=== PATIENT | female | born 1975 | race Hispanic/Latino ===

== ENCOUNTER 2016-12-15 00:23 | Emergency (ER) | payer MEDICAID ==
[2016-12-15 00:23] VITALS: BMI 23.3
[2016-12-15 00:36] VITALS: BP 137/87; PULSE 74; RESP 17; TEMP 98; O2SAT 98
--- NOTE | 2016-12-15 00:41 | ED PDOC ---
HPI: Psych/Substance Abuse Time Seen by Provider: 12/15/16 00:38 Chief Complaint (Nursing): Alcohol Ingestion Chief Complaint (Provider): etoh History Per: Patient, EMS Additional Complaint(s): Pt found outside sitting, pt admits to drinking tonight. Pt offers no complaints. Past Medical History Reviewed: Historical Data, Nursing Documentation, Vital Signs Vital Signs: Last Vital Signs Temp 98.0 F 12/15/16 00:33 Pulse 74 12/15/16 00:33 Resp 17 12/15/16 00:33 BP 137/87 12/15/16 00:33 Pulse Ox 98 12/15/16 00:33 - Medical History PMH: Anxiety, Asthma, Back Problems (herniated disc), Bipolar Disorder, COPD, Depression, Chronic Pain (Sciatica) Denies: Diabetes, Hepatitis, HIV, HTN, Chronic Kidney Disease, Seizures, Sexually Transmitted Disease - Family History Family History: States: No Known Family Hx - Social History Current smoker - smoking cessation education provided: Yes Alcohol: > 2 Drinks/Day Drugs: Denies - Immunization History Hx Tetanus Toxoid Vaccination: Yes (2 years ago as per patient) Hx Influenza Vaccination: Yes (05/2015) Hx Pneumococcal Vaccination: No - Home Medications Home Medications: Ambulatory Orders Medication Instructions Recorded Methylprednisolone [Medrol Dose 4 mg PO DAILY #21 mg 10/20/16 Pack (21 tabs)] Promethazine HCl/Codeine 5 ml PO HS #80 ml 10/20/16 [Prometh-Codein 6.25-10 mg/5 ml] - Allergies Allergies/Adverse Reactions: Allergies Allergy/AdvReac Type Severity Reaction Status Date / Time tramadol Allergy RASH Verified 10/20/16 16:47 Review of Systems ROS Statement: Except As Marked, All Systems Reviewed And Found Negative Physical Exam - Reviewed Nursing Documentation Reviewed: Yes Vital Signs Reviewed: Yes - Physical Exam Appears: Positive for: Non-toxic, No Acute Distress Head Exam: Positive for: ATRAUMATIC, NORMAL INSPECTION, NORMOCEPHALIC Skin: Positive for: Normal Color, Warm, DRY Eye Exam: Positive for: EOMI, Normal appearance, PERRL Neck: Positive for: Normal, Painless ROM Cardiovascular/Chest: Positive for: Regular Rate, Rhythm Respiratory: Positive for: CNT, Normal Breath Sounds Gastrointestinal/Abdominal: Positive for: Normal Exam, Bowel Sounds, Soft. Negative for: Tenderness Extremity: Positive for: Normal ROM. Negative for: Tenderness Neurologic/Psych: Positive for: Alert, Oriented - ECG O2 Sat by Pulse Oximetry: 98 Medical Decision Making Medical Decision Making: pt ambulatory steady gait. no signs of withdrawl. Disposition - Clinical Impression Clinical Impression: Alcohol abuse - Patient ED Disposition Is Patient to be Admitted: No - Disposition Referrals: [facility] [Outside] Disposition: Routine/Home Disposition Time: 05:18 Condition: GOOD Instructions: Alcohol Intoxication (ED)
== END 2016-12-15 06:05 | disposition home or self-care (01) ==
LOC: H.ER 00:23
DX: F10.10 Alcohol abuse, uncomplicated (principal); F17.200 Nicotine dependence, unspecified, uncomplicated; Z86.59 Personal history of other mental and behavioral disorders; J45.909 Unspecified asthma, uncomplicated

== ENCOUNTER 2016-12-17 22:27 | Observation (INO) | payer MEDICAID ==
[2016-12-17 22:27] VITALS: BMI 23.3
[2016-12-17 22:41] VITALS: BP 122/80; PULSE 83; RESP 16; TEMP 98.6; O2SAT 99
--- NOTE | 2016-12-17 22:47 | ED PDOC ---
Lower Extremity Pain/Injury Chief Complaint (Nursing): Alcohol Ingestion Chief Complaint (Provider): Right ankle pain History Per: Patient History/Exam Limitations: no limitations Onset/Duration Of Symptoms: Days Additional Complaint(s): Pt twisted ankle 3 days ago and was seen yesterday. Pt was diagnosed with ankle fx and splinted. PT states she was unable to walk with crutches so she has been walking on her splint. Pt states she has been taking motrin which has been helping the pain. Past Medical History Reviewed: Historical Data, Nursing Documentation, Vital Signs Vital Signs: Last Vital Signs Temp 98.6 F 12/17/16 22:29 Pulse 83 12/17/16 22:29 Resp 16 12/17/16 22:29 BP 122/80 12/17/16 22:29 Pulse Ox 99 12/17/16 22:29 - Medical History PMH: Anxiety, Asthma, Back Problems (herniated disc), Bipolar Disorder, COPD, Depression, Chronic Pain (Sciatica) Denies: Diabetes, Hepatitis, HIV, HTN, Chronic Kidney Disease, Seizures, Sexually Transmitted Disease - Surgical History Surgical History: No Surg Hx - Family History Family History: States: Unknown Family Hx - Living Arrangements Living Arrangements: With Family - Social History Current smoker - smoking cessation education provided: No - Immunization History Hx Tetanus Toxoid Vaccination: Yes (2 years ago as per patient) Hx Influenza Vaccination: Yes (05/2015) Hx Pneumococcal Vaccination: No - Home Medications Home Medications: Ambulatory Orders Medication Instructions Recorded Methylprednisolone [Medrol Dose 4 mg PO DAILY #21 mg 10/20/16 Pack (21 tabs)] Promethazine HCl/Codeine 5 ml PO HS #80 ml 10/20/16 [Prometh-Codein 6.25-10 mg/5 ml] Ibuprofen [Motrin Tab] 800 mg PO Q6H PRN #20 tab 12/16/16 - Allergies Allergies/Adverse Reactions: Allergies Allergy/AdvReac Type Severity Reaction Status Date / Time tramadol Allergy Intermediate RASH Verified 12/16/16 10:05 Review of Systems ROS Statement: Except As Marked, All Systems Reviewed And Found Negative Musculoskeletal: Positive for: Other Skin: Negative for: Bruising Physical Exam - Reviewed Nursing Documentation Reviewed: Yes Vital Signs Reviewed: Yes - Physical Exam Appears: Positive for: Well, Non-toxic, No Acute Distress Head Exam: Positive for: ATRAUMATIC, NORMAL INSPECTION, NORMOCEPHALIC Skin: Positive for: Normal Color, Warm, DRY Eye Exam: Positive for: Normal appearance ENT: Positive for: Normal ENT Inspection Neck: Positive for: Normal, Painless ROM Cardiovascular/Chest: Positive for: Regular Rate, Rhythm Respiratory: Positive for: Normal Breath Sounds. Negative for: Accessory Muscle Use, Respiratory Distress Back: Positive for: Normal Inspection Extremity: Positive for: Tenderness (Lateral malleolous ). Negative for: Normal ROM Neurologic/Psych: Positive for: Alert, Oriented - ECG O2 Sat by Pulse Oximetry: 99 Medical Decision Making Medical Decision Making: New splint placed. Pending sobriety. Disposition - Clinical Impression Clinical Impression: Alcohol abuse, Ankle fracture, right - Patient ED Disposition Is Patient to be Admitted: Transfer of Care - Disposition Disposition: Transfer of Care Disposition Time: 23:20 Condition: GOOD
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
== END 2016-12-18 07:31 | disposition home or self-care (01) ==
LOC: H.ER 22:27 → H.EROBSV 12-18 01:00
PROVIDERS: ADMIT Emergency Medicine; ATTEND Emergency Medicine
DX: F10.10 Alcohol abuse, uncomplicated (principal); S82.891D Other fracture of right lower leg, subsequent encounter for closed fracture with routine healing; X50.1XXD Overexertion from prolonged static or awkward postures, subsequent encounter; Z04.41 Encounter for examination and observation following alleged adult rape; G89.29 Other chronic pain; F31.9 Bipolar disorder, unspecified; J44.9 Chronic obstructive pulmonary disease, unspecified; J45.909 Unspecified asthma, uncomplicated; Z88.6 Allergy status to analgesic agent; F41.9 Anxiety disorder, unspecified

== ENCOUNTER 2016-12-18 17:34 | Emergency (ER) | payer MEDICAID ==
[2016-12-18 17:34] VITALS: BMI 23.3
[2016-12-18 17:40] VITALS: BP 140/76; PULSE 100; RESP 18; TEMP 98.9; O2SAT 99
== END 2016-12-18 19:30 | disposition left against medical advice (07) ==
LOC: H.ER 17:34
DX: Z02.89 Encounter for other administrative examinations (principal)

== ENCOUNTER 2016-12-21 18:32 | Emergency (ER) | payer MEDICAID ==
[2016-12-21 18:32] VITALS: BMI 23.3
[2016-12-21 18:45] VITALS: BP 110/74; PULSE 130; RESP 19; TEMP 98.4; O2SAT 98
--- NOTE | 2016-12-21 19:01 | ED PDOC ---
Lower Extremity Pain/Injury Time Seen by Provider: 12/21/16 18:52 Chief Complaint (Nursing): Lower Extremity Problem/Injury Chief Complaint (Provider): right ankle History Per: Patient History/Exam Limitations: no limitations Additional Complaint(s): 41yo F in ED for eval of right ankle pain-and states she doesn't believe she has a fx. Pt has not f.u with podiatry. Pt currently not intoxicated. Past Medical History Reviewed: Historical Data, Nursing Documentation, Vital Signs Vital Signs: Last Vital Signs Temp 98.4 F 12/21/16 18:39 Pulse 130 H 12/21/16 18:39 Resp 19 12/21/16 18:39 BP 110/74 12/21/16 18:39 Pulse Ox 98 12/21/16 18:39 - Medical History PMH: Anxiety, Asthma, Back Problems (herniated disc), Bipolar Disorder, COPD, Depression, Chronic Pain (Sciatica) Denies: Diabetes, Hepatitis, HIV, HTN, Chronic Kidney Disease, Seizures, Sexually Transmitted Disease - Family History Family History: States: Unknown Family Hx - Immunization History Hx Tetanus Toxoid Vaccination: Yes (2 years ago as per patient) Hx Influenza Vaccination: Yes (05/2015) Hx Pneumococcal Vaccination: No - Home Medications Home Medications: Ambulatory Orders Medication Instructions Recorded Methylprednisolone [Medrol Dose 4 mg PO DAILY #21 mg 10/20/16 Pack (21 tabs)] Promethazine HCl/Codeine 5 ml PO HS #80 ml 10/20/16 [Prometh-Codein 6.25-10 mg/5 ml] Ibuprofen [Motrin Tab] 800 mg PO Q6H PRN #20 tab 12/16/16 - Allergies Allergies/Adverse Reactions: Allergies Allergy/AdvReac Type Severity Reaction Status Date / Time tramadol Allergy Intermediate RASH Verified 12/16/16 10:05 Review of Systems ROS Statement: Except As Marked, All Systems Reviewed And Found Negative Musculoskeletal: Positive for: Foot Pain Physical Exam - Reviewed Nursing Documentation Reviewed: Yes Vital Signs Reviewed: Yes - Physical Exam Appears: Positive for: Well, Non-toxic, No Acute Distress Skin: Positive for: Normal Color, Warm, DRY Cardiovascular/Chest: Positive for: Regular Rate, Rhythm Respiratory: Positive for: CNT, Normal Breath Sounds Extremity: Positive for: Other (right foot: surgical boot and sot cast noted. ) Neurologic/Psych: Positive for: Alert, Oriented - ECG O2 Sat by Pulse Oximetry: 98 Medical Decision Making Medical Decision Making: PT left ED without treatment. pt seemed well in ED Disposition - Clinical Impression Clinical Impression: Ankle fracture - Patient ED Disposition Is Patient to be Admitted: No Counseled Patient/Family Regarding: Need For Followup - Disposition Disposition: Routine/Home Disposition Time: 19:06 Condition: STABLE
== END 2016-12-21 19:14 | disposition left against medical advice (07) ==
LOC: SUPCPDRO 18:32 → H.ER 18:32
DX: S82.891A Other fracture of right lower leg, initial encounter for closed fracture (principal); J45.909 Unspecified asthma, uncomplicated; T78.40XA Allergy, unspecified, initial encounter; X58.XXXA Exposure to other specified factors, initial encounter

== ENCOUNTER 2016-12-21 20:52 | Emergency (ER) | payer MEDICAID ==
[2016-12-21 20:52] VITALS: BMI 23.3
[2016-12-21 20:56] VITALS: BP 101/52; PULSE 86; RESP 16; TEMP 98.2; O2SAT 98
== END 2016-12-21 21:00 | disposition left against medical advice (07) ==
LOC: H.ER 20:52
DX: Z02.89 Encounter for other administrative examinations (principal)

== ENCOUNTER 2016-12-23 20:55 | Emergency (ER) | payer MEDICAID ==
[2016-12-23 20:56] VITALS: BMI 23.3
[2016-12-23 22:54] VITALS: BP 124/60; PULSE 80; RESP 14; TEMP 98; O2SAT 98
--- NOTE | 2016-12-24 00:35 | ED PDOC ---
Lower Extremity Pain/Injury Time Seen by Provider: 12/24/16 00:21 Chief Complaint (Nursing): Lower Extremity Problem/Injury Chief Complaint (Provider): right ankle pain History Per: Patient History/Exam Limitations: no limitations Onset/Duration Of Symptoms: Days (1 week) Current Symptoms Are (Timing): Still Present Additional History Per: Patient Additional Complaint(s): 41 y/o female presents with right ankle pain x 1 week. Patient states she fell last week and was diagnosed with ankle fracture and splinted; patient states she was supposed to follow up at the podiatry clinic thursday but she did not. She admits to walking around on ankle without using her crutches. Denies new fall, numbness/weakness right lower extremity, limitation of movement. Past Medical History Reviewed: Historical Data, Nursing Documentation, Vital Signs Vital Signs: Last Vital Signs Temp 98.0 F 12/23/16 22:51 Pulse 80 12/23/16 22:51 Resp 14 12/23/16 22:51 BP 124/60 12/23/16 22:51 Pulse Ox 98 12/23/16 22:51 - Medical History PMH: Anxiety, Asthma, Back Problems (herniated disc), Bipolar Disorder, COPD, Depression, Chronic Pain (Sciatica) Denies: Diabetes, Hepatitis, HIV, HTN, Chronic Kidney Disease, Seizures, Sexually Transmitted Disease - Family History Family History: States: Unknown Family Hx - Immunization History Hx Tetanus Toxoid Vaccination: Yes (2 years ago as per patient) Hx Influenza Vaccination: Yes (05/2015) Hx Pneumococcal Vaccination: No - Home Medications Home Medications: Ambulatory Orders Medication Instructions Recorded Methylprednisolone [Medrol Dose 4 mg PO DAILY #21 mg 10/20/16 Pack (21 tabs)] Promethazine HCl/Codeine 5 ml PO HS #80 ml 10/20/16 [Prometh-Codein 6.25-10 mg/5 ml] Ibuprofen [Motrin Tab] 800 mg PO Q6H PRN #20 tab 12/16/16 - Allergies Allergies/Adverse Reactions: Allergies Allergy/AdvReac Type Severity Reaction Status Date / Time tramadol Allergy Intermediate RASH Verified 12/16/16 10:05 Review of Systems ROS Statement: Except As Marked, All Systems Reviewed And Found Negative Musculoskeletal: Positive for: Foot Pain (right ankle pain) Physical Exam - Reviewed Nursing Documentation Reviewed: Yes Vital Signs Reviewed: Yes - Physical Exam Appears: Positive for: Well, Non-toxic, No Acute Distress (sleeping) Head Exam: Positive for: ATRAUMATIC, NORMAL INSPECTION, NORMOCEPHALIC Extremity: Positive for: Normal ROM, Other (right lower extremity in splint; digits exposed; no color change, temp change. Cap refill <2 sec b/l ) Neurologic/Psych: Positive for: Alert, Oriented. Negative for: Motor/Sensory Deficits - ECG O2 Sat by Pulse Oximetry: 98 - Progress ED Course And Treament: Patient instructed ot follow up at podiatry clinic today. Elevate leg at rest. Ibuprofen PRN pain. Return to ED for worsening/concerning symptoms. Disposition - Clinical Impression Clinical Impression: Ankle fracture - Patient ED Disposition Is Patient to be Admitted: No - Disposition Referrals: Podiatry Clinic [Outside] Disposition: Routine/Home Disposition Time: 01:30 Condition: STABLE Additional Instructions: Follow up at clinic today WITHOUT fail. Elevate leg at rest. Continue Motrin as directed, as needed. Return to ED for worsening/concerning symptoms. Instructions: Ankle Fracture (ED)
== END 2016-12-24 02:55 | disposition home or self-care (01) ==
LOC: H.ER 20:55
DX: M25.571 Pain in right ankle and joints of right foot (principal)

== ENCOUNTER 2016-12-28 15:47 | Emergency (ER) | payer MEDICAID ==
[2016-12-28 15:47] VITALS: BMI 23.3
--- NOTE | 2016-12-28 16:04 | ED PDOC ---
Lower Extremity Pain/Injury Time Seen by Provider: 12/28/16 15:55 Chief Complaint (Nursing): Lower Extremity Problem/Injury Chief Complaint (Provider): Foot pain History Per: Patient Additional Complaint(s): 41 y/o female presents with right ankle pain x 1 week. Patient states she fell last week and was diagnosed with ankle fracture and splinted. Pt slurring speech , admits to drinking today. Pt noted to have bruising to forehead, reports she did fall at one point. She admits to walking around on ankle without using her crutches. Denies numbness/weakness right lower extremity, limitation of movement. Past Medical History Reviewed: Historical Data, Nursing Documentation, Vital Signs Vital Signs: Last Vital Signs Temp 98.2 F 12/28/16 15:48 Pulse 79 12/28/16 15:48 Resp 18 12/28/16 15:48 BP 110/63 12/28/16 15:48 Pulse Ox 100 12/28/16 15:48 - Medical History PMH: Anxiety, Asthma, Back Problems (herniated disc), Bipolar Disorder, COPD, Depression, Chronic Pain (Sciatica) Denies: Diabetes, Hepatitis, HIV, HTN, Chronic Kidney Disease, Seizures, Sexually Transmitted Disease - Family History Family History: States: Unknown Family Hx - Living Arrangements Living Arrangements: Other - Social History Alcohol: > 2 Drinks/Day - Immunization History Hx Tetanus Toxoid Vaccination: Yes (2 years ago as per patient) Hx Influenza Vaccination: Yes (05/2015) Hx Pneumococcal Vaccination: No - Home Medications Home Medications: Ambulatory Orders Medication Instructions Recorded Methylprednisolone [Medrol Dose 4 mg PO DAILY #21 mg 10/20/16 Pack (21 tabs)] Promethazine HCl/Codeine 5 ml PO HS #80 ml 10/20/16 [Prometh-Codein 6.25-10 mg/5 ml] Ibuprofen [Motrin Tab] 800 mg PO Q6H PRN #20 tab 12/16/16 - Allergies Allergies/Adverse Reactions: Allergies Allergy/AdvReac Type Severity Reaction Status Date / Time tramadol Allergy Intermediate RASH Verified 12/28/16 16:28 Review of Systems ROS Statement: Except As Marked, All Systems Reviewed And Found Negative Physical Exam - Reviewed Nursing Documentation Reviewed: Yes Vital Signs Reviewed: Yes - Physical Exam Appears: Positive for: Well, Non-toxic, No Acute Distress Head Exam: Positive for: NORMAL INSPECTION, NORMOCEPHALIC. Negative for: ATRAUMATIC (ecchymosis to left forehead) Skin: Positive for: Normal Color, Warm, DRY Eye Exam: Positive for: EOMI, Normal appearance, PERRL ENT: Positive for: Normal ENT Inspection Neck: Positive for: Normal, Painless ROM Cardiovascular/Chest: Positive for: Regular Rate, Rhythm Respiratory: Positive for: CNT, Normal Breath Sounds Gastrointestinal/Abdominal: Positive for: Normal Exam, Bowel Sounds, Soft Back: Positive for: Normal Inspection Extremity: Positive for: Normal ROM Neurologic/Psych: Positive for: Alert, Oriented - Laboratory Results Result Diagrams: 12/28/16 17:30 12/28/16 17:30 - ECG O2 Sat by Pulse Oximetry: 100 Medical Decision Making Medical Decision Making: ETOH 255. Head CT IMPRESSION: No acute intracranial abnormality Pt monitored in ED and allowed to sleep for > 6 hours. on re-eval Pt awake and alert, more pleasant disposition. stable for discharge at this time. Disposition - Clinical Impression Clinical Impression: Alcohol dependence, Ankle injury - Patient ED Disposition Is Patient to be Admitted: No - Disposition Disposition: Routine/Home Disposition Time: 22:59 Condition: STABLE Instructions: Abuse of Alcohol (ED) - POA Present On Arrival: Falls Or Trauma
[2016-12-28 17:40] LABS: BASO # 0.1 K/uL (0.0-0.2); BASO % 0.7 % (0.0-2.0); EOS # 0.1 K/uL (0.0-0.7); EOS % 1.1 % (0.0-4.0); HEMATOCRIT 40.8 % (34.0-47.0); LYMPH # 3.4 K/uL (1.0-4.3); LYMPH % 39.6 % (20.0-40.0); MEAN CELL VOLUME 94.2 fl (81.0-99.0); MEAN CORPUSCULAR HEMOGLOBIN 31.6 pg (27.0-31.0); MEAN CORPUSCULAR HGB CONC 33.6 g/dL (33.0-37.0); MEAN PLATELET VOLUME 8.4 fl (7.2-11.7); MONO # 0.5 K/uL (0.0-0.8); MONO % 5.7 % (0.0-10.0); NEUT # 4.5 K/uL (1.8-7.0); NEUT % 52.9 % (50.0-75.0); RED CELL DISTRIBUTION WIDTH 12.8 % (11.5-14.5); WHITE BLOOD COUNT 8.5 K/uL (4.8-10.8)
[2016-12-28 17:52] LABS: ALB/GLOB RATIO 1.3 (1.0-2.1); ALCOHOL SERUM 255 mg/dl (0-10); ALKALINE PHOSPHATASE 83 U/L (38-126); ALT/SGPT 61 U/L (9-52); AST/SGOT 79 U/L (14-36); BILIRUBIN,TOTAL 0.3 mg/dl (0.2-1.3); BLOOD UREA NITROGEN 12 mg/dl (7-17); CALCIUM 9.1 mg/dL (8.4-10.2); CARBON DIOXIDE 27 mmol/L (22-30); CHLORIDE 107 mmol/L (98-107); GFR AFRICAN-AMERICAN > 60; GLUCOSE,RANDOM 83 mg/dL (65-105); POTASSIUM 3.9 MMOL/L (3.6-5.0); SODIUM 149 mmol/l (132-148); TOTAL PROTEIN 7.1 G/DL (6.3-8.2)
[2016-12-28] MEDS ORDERED: Sodium Chloride 0.9% 1,000 ML IV STA (21:27)
[2016-12-28 21:28] VITALS: PULSE 70; RESP 16; TEMP 98.1
--- NOTE | 2016-12-28 22:55 | CT ---
EXAM: CT Head Without Intravenous Contrast CLINICAL HISTORY: 41 years old, female; Pain; Headache; Tension; Additional info: ETOH, head injury TECHNIQUE: Axial computed tomography images of the head/brain without intravenous contrast. This CT exam was performed using one or more of the following dose reduction techniques: automated exposure control, adjustment of the mA and/or kV according to patient size, and/or use of iterative reconstruction technique. Coronal and sagittal reformatted images were created and reviewed. EXAM DATE/TIME: 12/28/2016 6:10 PM COMPARISON: CT - HEAD W/O CONTRAST 12/02/2015 1:17:24 PM FINDINGS: Brain: Ventricles are normal in size and configuration. There is no midline shift. There are no intra-axial or extra-axial mass lesions or areas of hemorrhage. There are no abnormal fluid collections. Swan-white differentiation is maintained. Ventricles: See above. Bones: Cranial vault is intact. Soft tissues: unremarkable Sinuses: There is no acute sinusitis. Ears and mastoids: Right middle ear and mastoid are unremarkable. Left mastoid is sclerotic and poorly pneumatized. Left middle ear is unremarkable. Orbits: Orbital contents are unremarkable. IMPRESSION: No acute intracranial abnormality
[2016-12-28 22:59] VITALS: O2SAT 100
[2016-12-28 23:15] VITALS: BP 104/69
== END 2016-12-28 23:14 | disposition home or self-care (01) ==
LOC: H.ER 15:47
DX: F10.20 Alcohol dependence, uncomplicated (principal); F31.9 Bipolar disorder, unspecified; F41.9 Anxiety disorder, unspecified; R51 Headache

== ENCOUNTER 2017-01-03 21:26 | Emergency (ER) | payer MEDICAID ==
[2017-01-03 21:27] VITALS: BMI 23.3
[2017-01-03 21:29] VITALS: BP 146/84; PULSE 95; RESP 18; TEMP 98; O2SAT 99
== END 2017-01-03 21:35 | disposition left against medical advice (07) ==
LOC: H.ER 21:26
DX: Z02.89 Encounter for other administrative examinations (principal); F10.10 Alcohol abuse, uncomplicated

== ENCOUNTER 2017-02-02 19:12 | Emergency (ER) | payer MEDICAID ==
[2017-02-02 19:12] VITALS: BMI 23.3
[2017-02-02 19:18] VITALS: BP 125/82; PULSE 84; RESP 18; TEMP 98; O2SAT 99
== END 2017-02-02 19:56 | disposition home or self-care (01) ==
LOC: H.ER 19:12
DX: Z02.89 Encounter for other administrative examinations (principal)

== ENCOUNTER 2017-02-05 20:10 | Emergency (ER) | payer MEDICAID ==
[2017-02-05 20:10] VITALS: BMI 23.3
[2017-02-05 20:20] VITALS: BP 146/97; RESP 16; TEMP 98; O2SAT 98
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
[2017-02-05 23:18] VITALS: PULSE 94
== END 2017-02-05 20:30 | disposition home or self-care (01) ==
LOC: H.ER 20:10
DX: F10.10 Alcohol abuse, uncomplicated (principal); F31.9 Bipolar disorder, unspecified; F41.9 Anxiety disorder, unspecified; G89.29 Other chronic pain; J44.9 Chronic obstructive pulmonary disease, unspecified; J45.909 Unspecified asthma, uncomplicated; S01.81XA Laceration without foreign body of other part of head, initial encounter; Y04.0XXA Assault by unarmed brawl or fight, initial encounter; Y92.89 Other specified places as the place of occurrence of the external cause

== ENCOUNTER 2017-02-27 23:24 | Observation (INO) | payer MEDICAID ==
[2017-02-27 23:25] VITALS: BMI 23.3
[2017-02-27 23:29] VITALS: TEMP 98; O2SAT 99
--- NOTE | 2017-02-27 23:43 | ED PDOC ---
HPI: Psych/Substance Abuse Time Seen by Provider: 02/27/17 23:42 Chief Complaint (Nursing): Alcohol Ingestion Chief Complaint (Provider): ALCOHOL INGESTION History Per: Patient (41 Y/O FEMALE WELLKNOWN TO ED BROUGHT FOR EVALUATION OF ALCOHOL INTOXICATION/ALTERED MENTATION. PATIENT DENIES ANY COMPLAINTS.) Past Medical History Reviewed: Historical Data, Nursing Documentation, Vital Signs Vital Signs: Last Vital Signs Temp 98 F 02/27/17 23:27 Pulse 92 H 02/27/17 23:27 Resp 20 02/27/17 23:27 BP 146/82 02/27/17 23:27 Pulse Ox 99 02/27/17 23:27 - Medical History PMH: Anxiety, Asthma, Back Problems (herniated disc), Bipolar Disorder, COPD, Depression, Chronic Pain (Sciatica) Denies: Diabetes, Hepatitis, HIV, HTN, Chronic Kidney Disease, Seizures, Sexually Transmitted Disease - Family History Family History: States: Unknown Family Hx - Immunization History Hx Tetanus Toxoid Vaccination: Yes (2 years ago as per patient) Hx Influenza Vaccination: Yes (05/2015) Hx Pneumococcal Vaccination: No - Home Medications Home Medications: Ambulatory Orders Medication Instructions Recorded Methylprednisolone [Medrol Dose 4 mg PO DAILY #21 mg 10/20/16 Pack (21 tabs)] Promethazine HCl/Codeine 5 ml PO HS #80 ml 10/20/16 [Prometh-Codein 6.25-10 mg/5 ml] Ibuprofen [Motrin Tab] 800 mg PO Q6H PRN #20 tab 12/16/16 - Allergies Allergies/Adverse Reactions: Allergies Allergy/AdvReac Type Severity Reaction Status Date / Time tramadol Allergy Intermediate RASH Verified 02/05/17 20:15 Review of Systems ROS Statement: Except As Marked, All Systems Reviewed And Found Negative Physical Exam - Reviewed Nursing Documentation Reviewed: Yes Vital Signs Reviewed: Yes - Physical Exam Appears: Positive for: Well, Non-toxic, No Acute Distress Head Exam: Positive for: ATRAUMATIC, NORMAL INSPECTION, NORMOCEPHALIC Skin: Positive for: Normal Color, Warm, DRY Eye Exam: Positive for: EOMI, Normal appearance, PERRL ENT: Positive for: Normal ENT Inspection Neck: Positive for: Normal, Painless ROM Cardiovascular/Chest: Positive for: Regular Rate, Rhythm Respiratory: Positive for: CNT, Normal Breath Sounds Gastrointestinal/Abdominal: Positive for: Normal Exam, Bowel Sounds, Soft Back: Positive for: Normal Inspection Extremity: Positive for: Normal ROM Neurologic/Psych: Positive for: Alert, Oriented - ECG O2 Sat by Pulse Oximetry: 99 ED OBSERVATION Date of observation admission: 02/28/17 Time of observation admission: 00:08 - Observation admission statement Patient is being placed in observation because:: ALCOHOL INTOXICATION; ALTERED MENTATION - Goals of Observation Goals of observation are:: OBSERVE WITH REPEATED RE-EVALUATION FOR IMPROVING MENTAL STATUS. - Progress Note Progress Note: 02/28/17 00:09 Disposition - Clinical Impression Clinical Impression: Alcohol intoxication - Patient ED Disposition Is Patient to be Admitted: Transfer of Care - Disposition Disposition: Transfer of Care Disposition Time: 06:00 Condition: GOOD Patient Signed Over To: David De Leon
--- NOTE | 2017-02-28 06:02 | ED PDOC ---
- ECG O2 Sat by Pulse Oximetry: 99 (RA) Pulse Ox Interpretation: Normal Medical Decision Making Medical Decision Making: Time: 0600 Initial impression: Alcohol Intoxication and Altered Mental Status Initial plan: Patient signed out to me by DESTINEE Ulloa. Pending Clinical Sobriety Scribe Attestation: Documented by Imelda Clayton, acting as a scribe for David De Leon MD MD Scribe Attestation: All medical record entries made by the Scribe were at my direction and personally dictated by me. I have reviewed the chart and agree that the record accurately reflects my personal performance of the history, physical exam, medical decision making, and the department course for this patient. I have also personally directed, reviewed, and agree with the discharge instructions and disposition. Disposition Doctor Will See Patient In The: Office Counseled Patient/Family Regarding: Studies Performed, Diagnosis, Need For Followup - Clinical Impression Clinical Impression: Alcohol intoxication - POA Present On Arrival: None - Disposition Disposition: Routine/Home Disposition Time: 06:30 Condition: GOOD
[2017-02-28 06:28] VITALS: BP 134/81; PULSE 74; RESP 16
== END 2017-02-28 06:28 | disposition home or self-care (01) ==
LOC: H.ER 23:24 → H.EROBSV 02-28 00:07
PROVIDERS: ADMIT Emergency Medicine; ATTEND Emergency Medicine
DX: F10.129 Alcohol abuse with intoxication, unspecified (principal); F31.9 Bipolar disorder, unspecified; J44.9 Chronic obstructive pulmonary disease, unspecified; F32.9 Major depressive disorder, single episode, unspecified; F41.9 Anxiety disorder, unspecified

== ENCOUNTER 2017-03-08 14:58 | Emergency (ER) | payer MEDICAID ==
[2017-03-08 14:58] VITALS: BMI 23.3
[2017-03-08 15:07] VITALS: BP 126/74; PULSE 72; RESP 18; TEMP 98.1; O2SAT 100
[2017-03-08] MEDS ORDERED: Sodium Chloride 0.9% 1,000 ML IV STA (15:45)
--- NOTE | 2017-03-08 15:46 | ED PDOC ---
Arrival/HPI - General Chief Complaint: GI Problem Time Seen by Provider: 03/08/17 15:05 - History of Present Illness Associated Symptoms (Text): 03/08/17 15:46 pt arrives for eval of vomiting since 4am. Pt states her last drink was at 11pm. Denies any pain. Past Medical History - Past History Past History: No Previous - Infectious Disease Hx of Infectious Diseases: None - Tetanus Immunization Tetanus Immunization: Unknown - Past Medical History Past Medical History: No Previous - Cardiac Hx Hypertension: No - Pulmonary Hx Asthma: Yes Hx Chronic Obstructive Pulmonary Disease (COPD): Yes - Neurological Hx Seizures: No - HEENT Hx HEENT Disorder: No - Renal Hx Renal Disorder: No - Endocrine/Metabolic Hx Endocrine Disorders: No - Hematological/Oncological Hx Blood Disorders: No - Integumentary Hx Dermatological Disorder: No - Musculoskeletal/Rheumatological Hx Herniated Disk: Yes - Gastrointestinal Hx Gastrointestinal Disorders: No - Genitourinary/Gynecological Hx Sexually Transmitted Diseases: No - Psychiatric Hx Anxiety: Yes Hx Bipolar Disorder: Yes Hx Depression: Yes Hx Substance Use: No - Past Surgical History Past Surgical History: No Previous - Surgical History Other/Comment: delivered a baby 05/2014 - Anesthesia Hx Anesthesia: No Hx Anesthesia Reactions: No Hx Malignant Hyperthermia: No - Suicidal Assessment Feels Threatened In Home Enviroment: No Family/Social History Smoking Status: Heavy Smoker > 10 Cigarettes Daily Hx Alcohol Use: Yes Hx Substance Use: No Hx Substance Use Treatment: No Allergies/Home Meds Allergies/Adverse Reactions: Allergies tramadol Allergy (Intermediate, Verified 02/05/17 20:15) RASH Physical Exam Vital Signs Temp Pulse Resp BP Pulse Ox 03/08/17 15:04 98.1 F 72 18 126/74 100 Medical Decision Making - Medication Orders Current Medication Orders: Sodium Chloride (Sodium Chloride 0.9%) 1,000 mls @ 125 mls/hr IV .Q8H STA Stop: 03/08/17 23:44 Ondansetron HCl (Zofran Inj) 4 mg IVP STAT STA Stop: 03/08/17 15:45 Disposition/Present on Arrival - Present on Arrival History of DVT/PE: No History of Uncontrolled Diabetes: No Urinary Catheter: No History Surgical Site Infection Following: None - Disposition
[2017-03-08 16:33] LABS: BASO % 0.3 % (0.0-2.0); EOS % 0.4 % (0.0-4.0); HEMOGLOBIN 13.9 g/dL (12.0-16.0); LYMPH # 0.7 K/uL (1.0-4.3); LYMPH % 7.6 % (20.0-40.0); MEAN CELL VOLUME 95.3 fl (81.0-99.0); MEAN CORPUSCULAR HEMOGLOBIN 32.1 pg (27.0-31.0); MEAN CORPUSCULAR HGB CONC 33.6 g/dL (33.0-37.0); MONO # 0.3 K/uL (0.0-0.8); MONO % 3.8 % (0.0-10.0); NEUT # 7.6 K/uL (1.8-7.0); NEUT % 87.9 % (50.0-75.0); NRBC % 0.1 % (0.0-0.0); PLATELET COUNT 209 K/uL (130-400); RBC 4.34 Mil/uL (3.80-5.20); RED CELL DISTRIBUTION WIDTH 13.1 % (11.5-14.5); WHITE BLOOD COUNT 8.6 K/uL (4.8-10.8)
--- NOTE | 2017-03-08 16:50 | ED PDOC ---
HPI: Abdomen Time Seen by Provider: 03/08/17 15:05 Chief Complaint (Nursing): GI Problem Chief Complaint (Provider): Vomiting History Per: Patient Additional Complaint(s): pt arrives for eval of vomiting since 4am. Pt states her last drink was at 11pm. Denies any pain. 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 Past Medical History Reviewed: Historical Data, Nursing Documentation, Vital Signs Vital Signs: Last Vital Signs Temp 98.1 F 03/08/17 15:04 Pulse 72 03/08/17 15:04 Resp 18 03/08/17 15:04 BP 126/74 03/08/17 15:04 Pulse Ox 100 03/08/17 15:04 - Medical History PMH: Anxiety, Asthma, Back Problems (herniated disc), Bipolar Disorder, COPD, Depression, Chronic Pain (Sciatica) Denies: Diabetes, Hepatitis, HIV, HTN, Chronic Kidney Disease, Seizures, Sexually Transmitted Disease - Surgical History Surgical History: No Surg Hx - Family History Family History: States: Unknown Family Hx - Living Arrangements Living Arrangements: Other - Social History Alcohol: > 2 Drinks/Day - Immunization History Hx Tetanus Toxoid Vaccination: Yes (2 years ago as per patient) Hx Influenza Vaccination: Yes (05/2015) Hx Pneumococcal Vaccination: No - Home Medications Home Medications: Ambulatory Orders Medication Instructions Recorded Methylprednisolone [Medrol Dose 4 mg PO DAILY #21 mg 10/20/16 Pack (21 tabs)] Promethazine HCl/Codeine 5 ml PO HS #80 ml 10/20/16 [Prometh-Codein 6.25-10 mg/5 ml] Ibuprofen [Motrin Tab] 800 mg PO Q6H PRN #20 tab 12/16/16 - Allergies Allergies/Adverse Reactions: Allergies Allergy/AdvReac Type Severity Reaction Status Date / Time tramadol Allergy Intermediate RASH Verified 02/05/17 20:15 Review of Systems ROS Statement: Except As Marked, All Systems Reviewed And Found Negative Physical Exam - Reviewed Nursing Documentation Reviewed: Yes Vital Signs Reviewed: Yes - Physical Exam Appears: Positive for: Well, Non-toxic, No Acute Distress Head Exam: Positive for: ATRAUMATIC, NORMAL INSPECTION, NORMOCEPHALIC Skin: Positive for: Normal Color, Warm, DRY Eye Exam: Positive for: EOMI, Normal appearance, PERRL ENT: Positive for: Normal ENT Inspection Neck: Positive for: Normal, Painless ROM Cardiovascular/Chest: Positive for: Regular Rate, Rhythm Respiratory: Positive for: CNT, Normal Breath Sounds Gastrointestinal/Abdominal: Positive for: Normal Exam, Bowel Sounds, Soft Back: Positive for: Normal Inspection Extremity: Positive for: Normal ROM Neurologic/Psych: Positive for: Alert, Oriented - Laboratory Results Result Diagrams: 03/08/17 16:28 - ECG O2 Sat by Pulse Oximetry: 100 Disposition - Clinical Impression Clinical Impression: Alcohol use - Patient ED Disposition Is Patient to be Admitted: No - Disposition Disposition: Routine/Home Disposition Time: 16:50 Condition: STABLE Instructions: Alcohol Intoxication (ED)
[2017-03-08 16:59] LABS: ALB/GLOB RATIO 1.5 (1.0-2.1); ALBUMIN 4.4 g/dL (3.5-5.0); ALT/SGPT 159 U/L (9-52); AMYLASE 72 U/L (30-110); AST/SGOT 246 U/L (14-36); BLOOD UREA NITROGEN 14 mg/dl (7-17); CALCIUM 9.5 mg/dL (8.4-10.2); GFR AFRICAN-AMERICAN > 60; GFR NON-AFRICAN AMERICAN > 60; LIPASE 52 U/L (23-300)
[2017-03-08 17:02] LABS: SQUAMOUS EPITHIAL 7 /hpf (0-5); URINE BACTERIA FEW (<OCC); URINE BILIRUBIN NEGATIVE (NEGATIVE); URINE BLOOD NEGATIVE (NEGATIVE); URINE CLARITY CLOUDY (Clear); URINE COLOR YELLOW (YELLOW); URINE GLUCOSE (UA) NEG (Normal); URINE LEUKOCYTE ESTERASE NEG Leu/uL (Negative); URINE NITRATE NEGATIVE (NEGATIVE); URINE PROTEIN 100 mg/dL (NEGATIVE); URINE UROBILINOGEN 0.2-1.0 mg/dL (0.2-1.0)
[2017-03-08 17:39] LABS: BARBITURATES, UR NEGATIVE (NEGATIVE); BENZODIAZEPINES, UR NEGATIVE (NEGATIVE)
[2017-03-08 17:42] LABS: OPIATES, UR NEGATIVE (NEGATIVE); PHENCYCLIDINE, UR NEGATIVE (NEGATIVE)
[2017-03-08 19:39] LABS: BANDS 1 % (0-2); LYMPHOCYTE 6 % (20-50); MONOCYTE 5 % (0-10); NEUTROPHIL 80 % (42-75); PLATELET ESTIMATE NORMAL (NORMAL); REACTIVE LYMPHOCYTES 8 % (0-0); TOTAL CELLS COUNTED 100
== END 2017-03-08 17:11 | disposition home or self-care (01) ==
LOC: H.ER 14:58
DX: F10.129 Alcohol abuse with intoxication, unspecified (principal); R11.10 Vomiting, unspecified; F31.9 Bipolar disorder, unspecified; F41.9 Anxiety disorder, unspecified; G89.29 Other chronic pain

== ENCOUNTER 2017-03-27 00:53 | Emergency (ER) | payer MEDICAID ==
[2017-03-27 00:53] VITALS: BMI 23.3
[2017-03-27 01:05] VITALS: BP 138/82; PULSE 76; RESP 16; TEMP 98.7; O2SAT 98
== END 2017-03-27 01:14 | disposition left against medical advice (07) ==
LOC: H.ER 00:53
DX: Z02.89 Encounter for other administrative examinations (principal)

== ENCOUNTER 2017-04-15 00:42 | Emergency (ER) | payer MEDICAID ==
[2017-04-15 00:42] VITALS: BMI 23.3
[2017-04-15 01:01] VITALS: BP 121/68; PULSE 95; RESP 18; TEMP 98; O2SAT 98
--- NOTE | 2017-04-15 01:07 | ED PDOC ---
HPI: Psych/Substance Abuse Time Seen by Provider: 04/15/17 00:57 Chief Complaint (Nursing): Alcohol Ingestion Chief Complaint (Provider): Alcohol Ingestion History Per: Patient History/Exam Limitations: no limitations Onset/Duration Of Symptoms: Hrs Suicide/Self Injury Attempted (Context): None Modifying Factor(s): Alcohol Additional Complaint(s): 41 y/o female patient presenting to the ED with alcohol use. Patient is well known to the provider and the ED. Patient reports no complaints. Past Medical History Reviewed: Historical Data, Nursing Documentation, Vital Signs Vital Signs: Last Vital Signs Temp 98.0 F 04/15/17 00:57 Pulse 95 H 04/15/17 00:57 Resp 18 04/15/17 00:57 BP 121/68 04/15/17 00:57 Pulse Ox 98 04/15/17 00:57 - Medical History PMH: Anxiety, Asthma, Back Problems (herniated disc), Bipolar Disorder, COPD, Depression, Chronic Pain (Sciatica) Denies: Diabetes, Hepatitis, HIV, HTN, Chronic Kidney Disease, Seizures, Sexually Transmitted Disease - Family History Family History: States: Unknown Family Hx - Social History Alcohol: > 2 Drinks/Day - Immunization History Hx Tetanus Toxoid Vaccination: Yes (2 years ago as per patient) Hx Influenza Vaccination: Yes (05/2015) Hx Pneumococcal Vaccination: No - Home Medications Home Medications: Ambulatory Orders Medication Instructions Recorded Methylprednisolone [Medrol Dose 4 mg PO DAILY #21 mg 10/20/16 Pack (21 tabs)] Promethazine HCl/Codeine 5 ml PO HS #80 ml 10/20/16 [Prometh-Codein 6.25-10 mg/5 ml] Ibuprofen [Motrin Tab] 800 mg PO Q6H PRN #20 tab 12/16/16 - Allergies Allergies/Adverse Reactions: Allergies Allergy/AdvReac Type Severity Reaction Status Date / Time tramadol Allergy Intermediate RASH Verified 04/15/17 00:57 Review of Systems ROS Statement: Except As Marked, All Systems Reviewed And Found Negative Physical Exam - Reviewed Nursing Documentation Reviewed: Yes Vital Signs Reviewed: Yes - Physical Exam Appears: Positive for: Non-toxic, No Acute Distress Head Exam: Positive for: ATRAUMATIC, NORMAL INSPECTION, NORMOCEPHALIC Skin: Positive for: Normal Color, Warm, Dry Eye Exam: Positive for: Normal appearance Neck: Positive for: Normal Cardiovascular/Chest: Positive for: Regular Rate, Rhythm. Negative for: Murmur Respiratory: Positive for: Normal Breath Sounds. Negative for: Respiratory Distress Extremity: Positive for: Normal ROM Neurologic/Psych: Positive for: Alert, Oriented, Gait ((+)Steady ). Negative for: Motor/Sensory Deficits - ECG O2 Sat by Pulse Oximetry: 98 (RA) Pulse Ox Interpretation: Normal Medical Decision Making Medical Decision Making: Time: 56 Initial impression: Alcohol Use Initial plan: --Discharge Instructions: Patient feels better. Discussed results and plan with patient who expresses understanding. Counseling was provided regarding the diagnosis and prognosis. All questions answered and there is agreement with the plan to discharge home with instructions. Patient stable for discharge. Return if symptoms persist or worsen. Scribe Attestation: Documented by Imelda Clayton, acting as a scribe for Samir Garcia MD. Scribe Attestation: All medical record entries made by the Scribe were at my direction and personally dictated by me. I have reviewed the chart and agree that the record accurately reflects my personal performance of the history, physical exam, medical decision making, and the department course for this patient. I have also personally directed, reviewed, and agree with the discharge instructions and disposition. Disposition - Clinical Impression Clinical Impression: Alcohol use - Patient ED Disposition Is Patient to be Admitted: No - Disposition Disposition: Routine/Home Disposition Time: 01:00 Condition: STABLE Instructions: Alcohol Dependence (ED)
== END 2017-04-15 01:00 | disposition home or self-care (01) ==
LOC: H.ER 00:42
DX: F10.129 Alcohol abuse with intoxication, unspecified (principal); F31.9 Bipolar disorder, unspecified

== ENCOUNTER 2017-07-18 23:10 | Emergency (ER) | payer MEDICAID, OTHER ==
[2017-07-18 23:34] VITALS: BMI 25.0
[2017-07-18 23:37] VITALS: PULSE 98; RESP 16
[2017-07-18 23:40] VITALS: BP 114/69; TEMP 98; O2SAT 98
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
== END 2017-07-19 06:14 | disposition home or self-care (01) ==
LOC: H.ER 23:10
DX: F10.10 Alcohol abuse, uncomplicated (principal); G89.29 Other chronic pain; J44.9 Chronic obstructive pulmonary disease, unspecified

== ENCOUNTER 2017-07-19 21:38 | Emergency (ER) | payer MEDICAID ==
[2017-07-19 21:38] VITALS: BMI 25.0
[2017-07-19 21:45] VITALS: BP 132/58; PULSE 82; RESP 18; TEMP 97.7; O2SAT 99
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
== END 2017-07-20 05:28 | disposition home or self-care (01) ==
LOC: H.ER 21:38
DX: F10.10 Alcohol abuse, uncomplicated (principal); Z86.59 Personal history of other mental and behavioral disorders; J44.9 Chronic obstructive pulmonary disease, unspecified; G89.29 Other chronic pain; J45.909 Unspecified asthma, uncomplicated

== ENCOUNTER 2017-07-23 02:36 | Emergency (ER) | payer MEDICAID ==
[2017-07-23 02:36] VITALS: BMI 25.0
[2017-07-23 02:53] VITALS: O2SAT 98
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
[2017-07-23 06:07] VITALS: BP 129/73; PULSE 77; RESP 14; TEMP 98.3
== END 2017-07-23 06:36 | disposition home or self-care (01) ==
LOC: H.ER 02:36
DX: S09.92XA Unspecified injury of nose, initial encounter (principal); Y04.0XXA Assault by unarmed brawl or fight, initial encounter; Y92.89 Other specified places as the place of occurrence of the external cause; F31.9 Bipolar disorder, unspecified; F41.9 Anxiety disorder, unspecified; G89.29 Other chronic pain; J44.9 Chronic obstructive pulmonary disease, unspecified

== ENCOUNTER 2017-07-23 21:45 | Emergency (ER) | payer MEDICAID ==
[2017-07-23 21:47] VITALS: BP 123/74; PULSE 92; RESP 16; TEMP 97.9; O2SAT 95; BMI 24.1
--- NOTE | 2017-07-23 22:35 | ED PDOC ---
HPI: Psych/Substance Abuse Time Seen by Provider: 07/23/17 21:58 Chief Complaint (Nursing): Alcohol Ingestion History Per: Patient, EMS Additional Complaint(s): Pt. brought in for ETOH intoxication. Pt. well known to ED. Offers no complaints and requesting to leave. Denies headache contrary to triage note. Past Medical History Reviewed: Historical Data, Nursing Documentation, Vital Signs Vital Signs: Last Vital Signs Temp 97.9 F 07/23/17 21:46 Pulse 92 H 07/23/17 21:46 Resp 16 07/23/17 21:46 BP 123/74 07/23/17 21:46 Pulse Ox 95 07/23/17 21:46 - Medical History PMH: Anxiety, Asthma, Back Problems (herniated disc), Bipolar Disorder, COPD, Depression, Chronic Pain (Sciatica) Denies: Diabetes, Hepatitis, HIV, HTN, Chronic Kidney Disease, Seizures, Sexually Transmitted Disease - Family History Family History: States: Unknown Family Hx - Immunization History Hx Tetanus Toxoid Vaccination: Yes (2 years ago as per patient) Hx Influenza Vaccination: Yes (05/2015) Hx Pneumococcal Vaccination: No - Home Medications Home Medications: Ambulatory Orders Medication Instructions Recorded No Known Home Med 04/22/17 - Allergies Allergies/Adverse Reactions: Allergies Allergy/AdvReac Type Severity Reaction Status Date / Time tramadol Allergy Intermediate RASH Verified 07/18/17 23:34 Review of Systems ROS Statement: Except As Marked, All Systems Reviewed And Found Negative Physical Exam - Reviewed Nursing Documentation Reviewed: Yes Vital Signs Reviewed: Yes - Physical Exam Appears: Positive for: Well, Non-toxic, No Acute Distress Head Exam: Positive for: ATRAUMATIC, NORMAL INSPECTION, NORMOCEPHALIC Skin: Positive for: Normal Color, Warm. Negative for: Rash Eye Exam: Positive for: EOMI, Normal appearance, PERRL ENT: Positive for: Normal ENT Inspection Neck: Positive for: Normal, Painless ROM Cardiovascular/Chest: Positive for: Regular Rate, Rhythm Respiratory: Positive for: CNT, Normal Breath Sounds Gastrointestinal/Abdominal: Positive for: Normal Exam, Bowel Sounds, Soft. Negative for: Tenderness Back: Positive for: Normal Inspection Extremity: Positive for: Normal ROM Neurologic/Psych: Positive for: Alert, Oriented, Gait (steady unassisted). Negative for: Aphasia, Facial Droop - ECG O2 Sat by Pulse Oximetry: 95 Disposition - Clinical Impression Clinical Impression: Alcohol intoxication - Patient ED Disposition Is Patient to be Admitted: No - Disposition Disposition Time: 22:45 Condition: STABLE Instructions: Alcohol Intoxication (ED) Forms: [facility] (Tajik) Print Language: [email or web address]
== END 2017-07-23 22:15 | disposition home or self-care (01) ==
LOC: H.ER 21:45
DX: F10.129 Alcohol abuse with intoxication, unspecified (principal); F31.9 Bipolar disorder, unspecified; F41.9 Anxiety disorder, unspecified; G89.29 Other chronic pain; J44.9 Chronic obstructive pulmonary disease, unspecified

== ENCOUNTER 2017-07-24 22:39 | Emergency (ER) | payer MEDICAID ==
[2017-07-24 22:39] VITALS: BMI 24.1
[2017-07-24 22:43] VITALS: TEMP 97.9
--- NOTE | 2017-07-24 23:47 | ED PDOC ---
HPI: General Adult Time Seen by Provider: 07/24/17 22:47 Chief Complaint (Nursing): Alcohol Ingestion History Per: Patient, EMS Additional Complaint(s): Pt. brought in by EMS for ETOH intoxication. Pt. well known to ED and to policy writer sales. Pt. requesting test. Offers no complaints. Denies vaginal bleeding, pelvic pain, abdominal pain. Past Medical History Reviewed: Historical Data, Nursing Documentation, Vital Signs Vital Signs: Last Vital Signs Temp 97.9 F 07/24/17 22:41 Pulse 95 H 07/24/17 22:41 Resp 18 07/24/17 22:41 BP 120/90 07/24/17 22:41 Pulse Ox 97 07/24/17 23:48 - Medical History PMH: Anxiety, Asthma, Back Problems (herniated disc), Bipolar Disorder, COPD, Depression, Chronic Pain (Sciatica) Denies: Diabetes, Hepatitis, HIV, HTN, Chronic Kidney Disease, Seizures, Sexually Transmitted Disease - Family History Family History: States: Unknown Family Hx - Immunization History Hx Tetanus Toxoid Vaccination: Yes (2 years ago as per patient) Hx Influenza Vaccination: Yes (05/2015) Hx Pneumococcal Vaccination: No - Home Medications Home Medications: Ambulatory Orders Medication Instructions Recorded No Known Home Med 04/22/17 - Allergies Allergies/Adverse Reactions: Allergies Allergy/AdvReac Type Severity Reaction Status Date / Time tramadol Allergy Intermediate RASH Verified 07/18/17 23:34 Review of Systems Review Of Systems: ROS cannot be obtained secondary to pt's inabilty to answer questions. Physical Exam - Reviewed Nursing Documentation Reviewed: Yes Vital Signs Reviewed: Yes - Physical Exam Appears: Positive for: Well, Non-toxic, No Acute Distress Head Exam: Positive for: ATRAUMATIC, NORMAL INSPECTION, NORMOCEPHALIC Skin: Positive for: Normal Color, Warm. Negative for: Rash Eye Exam: Positive for: EOMI, Normal appearance, PERRL ENT: Positive for: Normal ENT Inspection Neck: Positive for: Normal, Painless ROM Cardiovascular/Chest: Positive for: Regular Rate, Rhythm Respiratory: Positive for: CNT, Normal Breath Sounds Gastrointestinal/Abdominal: Positive for: Normal Exam, Bowel Sounds, Soft. Negative for: Tenderness Back: Positive for: Normal Inspection Extremity: Positive for: Normal ROM Neurologic/Psych: Positive for: Alert, Oriented, Gait (steady unassisted), Other (slurred speech; AOB). Negative for: Aphasia, Facial Droop - ECG O2 Sat by Pulse Oximetry: 97 Disposition - Clinical Impression Clinical Impression: Alcohol intoxication - Patient ED Disposition Is Patient to be Admitted: No - Disposition Disposition: Routine/Home Disposition Time: 23:48 Condition: STABLE Instructions: Alcohol Intoxication (ED) Forms: [employer] [facility] (Armenian)
[2017-07-25 05:34] VITALS: BP 122/78; PULSE 86; RESP 16; O2SAT 98
== END 2017-07-25 05:44 | disposition home or self-care (01) ==
LOC: H.ER 22:39
DX: F10.129 Alcohol abuse with intoxication, unspecified (principal); F31.9 Bipolar disorder, unspecified; F41.9 Anxiety disorder, unspecified; G89.29 Other chronic pain; J44.9 Chronic obstructive pulmonary disease, unspecified

== ENCOUNTER 2017-07-28 22:20 | Emergency (ER) | payer MEDICAID ==
[2017-07-28 22:20] VITALS: BMI 24.1
[2017-07-28 22:25] VITALS: BP 118/70; PULSE 75; RESP 18; TEMP 97.2; O2SAT 98
== END 2017-07-28 22:50 | disposition left against medical advice (07) ==
LOC: H.ER 22:20
DX: Z02.89 Encounter for other administrative examinations (principal)

== ENCOUNTER 2017-07-29 22:28 | Emergency (ER) | payer MEDICAID ==
[2017-07-29 22:28] VITALS: BMI 24.1
[2017-07-29 22:32] VITALS: BP 136/106; PULSE 87; RESP 16; TEMP 97.6; O2SAT 97
--- NOTE | 2017-07-29 23:00 | ED PDOC ---
HPI: General Adult Time Seen by Provider: 07/29/17 22:36 Chief Complaint (Nursing): Medical Clearance Chief Complaint (Provider): Clearance for incarceration History Per: Patient Additional Complaint(s): Pt brought in by ambulance accompanied by Nam KELLER for medical and psych clearance for incarceration. Patient admits to drinking today, last drink consumed at 5pm. No physical complaints. No HI or SI. Past Medical History Reviewed: Nursing Documentation, Vital Signs Vital Signs: Last Vital Signs Temp 97.6 F 07/29/17 22:31 Pulse 87 07/29/17 22:31 Resp 16 07/29/17 22:31 BP 136/106 H 07/29/17 22:31 Pulse Ox 97 07/29/17 23:01 - Medical History PMH: Anxiety, Asthma, Back Problems (herniated disc), Bipolar Disorder, COPD, Depression, Chronic Pain (Sciatica) Denies: Diabetes, Hepatitis, HIV, HTN, Chronic Kidney Disease, Seizures, Sexually Transmitted Disease - Surgical History Surgical History: No Surg Hx - Family History Family History: States: Unknown Family Hx - Living Arrangements Living Arrangements: With Family - Social History Current smoker - smoking cessation education provided: No Alcohol: None Drugs: Denies - Immunization History Hx Tetanus Toxoid Vaccination: Yes (2 years ago as per patient) Hx Influenza Vaccination: Yes (05/2015) Hx Pneumococcal Vaccination: No - Home Medications Home Medications: Ambulatory Orders Medication Instructions Recorded No Known Home Med 04/22/17 - Allergies Allergies/Adverse Reactions: Allergies Allergy/AdvReac Type Severity Reaction Status Date / Time tramadol Allergy Intermediate RASH Verified 07/18/17 23:34 Review of Systems ROS Statement: Except As Marked, All Systems Reviewed And Found Negative Physical Exam - Reviewed Nursing Documentation Reviewed: Yes Vital Signs Reviewed: Yes - Physical Exam Appears: Positive for: Well, Non-toxic, No Acute Distress Head Exam: Positive for: ATRAUMATIC, NORMAL INSPECTION, NORMOCEPHALIC Skin: Positive for: Normal Color, Warm, DRY Eye Exam: Positive for: EOMI, Normal appearance, PERRL ENT: Positive for: Normal ENT Inspection Neck: Positive for: Normal, Painless ROM Cardiovascular/Chest: Positive for: Regular Rate, Rhythm Respiratory: Positive for: CNT, Normal Breath Sounds Gastrointestinal/Abdominal: Positive for: Normal Exam, Bowel Sounds, Soft Back: Positive for: Normal Inspection Extremity: Positive for: Normal ROM Neurologic/Psych: Positive for: Alert, Oriented - ECG O2 Sat by Pulse Oximetry: 97 Medical Decision Making Medical Decision Making: Crisis eval obtained Pt cleared for incarceration, Dr. Cabezas Disposition - Clinical Impression Clinical Impression: Alcohol abuse - Patient ED Disposition Is Patient to be Admitted: No - Disposition Disposition: Routine/Home Disposition Time: 00:05 Condition: STABLE Additional Instructions: patient is medically and psychiatrically cleared for incarceration Instructions: Abuse of Alcohol (ED) Forms: [employer] (Pashto)
== END 2017-07-29 23:59 | disposition home or self-care (01) ==
LOC: H.ER 22:28
DX: F10.10 Alcohol abuse, uncomplicated (principal); Z02.89 Encounter for other administrative examinations; Z86.59 Personal history of other mental and behavioral disorders; G89.29 Other chronic pain; J44.9 Chronic obstructive pulmonary disease, unspecified; Z00.8 Encounter for other general examination

== ENCOUNTER 2017-08-07 01:51 | Emergency (ER) | payer MEDICAID ==
[2017-08-07 02:39] VITALS: BMI 22.6
--- NOTE | 2017-08-07 02:40 | ED PDOC ---
HPI: Psych/Substance Abuse Time Seen by Provider: 08/07/17 02:18 Chief Complaint (Provider): ETOH intoxication ED Caveat: Intoxicated History Per: Patient History/Exam Limitations: intoxication Onset/Duration Of Symptoms: Days (x1) Modifying Factor(s): Alcohol Additional Complaint(s): Rhina Ledezma is a 41 year old female who was brought in for public intoxication. Upon arrival to the ED, patient appears intoxicated with slurred speech and alcohol on breath. She offers no medical complaints at this time. No signs of fall or trauma. PMD: None provided Past Medical History Reviewed: Historical Data, Nursing Documentation, Vital Signs - Medical History PMH: Anxiety, Asthma, Back Problems (herniated disc), Bipolar Disorder, COPD, Depression, Chronic Pain (Sciatica) Denies: Diabetes, Hepatitis, HIV, HTN, Chronic Kidney Disease, Seizures, Sexually Transmitted Disease - Family History Family History: States: Unknown Family Hx - Immunization History Hx Tetanus Toxoid Vaccination: Yes (2 years ago as per patient) Hx Influenza Vaccination: Yes (05/2015) Hx Pneumococcal Vaccination: No - Home Medications Home Medications: Ambulatory Orders Medication Instructions Recorded No Known Home Med 04/22/17 - Allergies Allergies/Adverse Reactions: Allergies Allergy/AdvReac Type Severity Reaction Status Date / Time tramadol Allergy Intermediate RASH Verified 07/18/17 23:34 Review of Systems Review Of Systems: ROS cannot be obtained secondary to pt's inabilty to answer questions. Physical Exam - Reviewed Nursing Documentation Reviewed: Yes Vital Signs Reviewed: Yes - Physical Exam Appears: Positive for: Non-toxic, No Acute Distress Head Exam: Positive for: ATRAUMATIC, NORMOCEPHALIC Skin: Positive for: Normal Color, Warm, Dry Eye Exam: Positive for: EOMI, Normal appearance, PERRL Neck: Positive for: Normal, Painless ROM, Supple Cardiovascular/Chest: Positive for: Regular Rate, Rhythm. Negative for: Murmur Respiratory: Positive for: Normal Breath Sounds. Negative for: Respiratory Distress Gastrointestinal/Abdominal: Positive for: Normal Exam, Soft. Negative for: Tenderness Back: Positive for: Normal Inspection. Negative for: L CVA Tenderness, R CVA Tenderness, Vertebral Tenderness Extremity: Positive for: Normal ROM. Negative for: Pedal Edema, Deformity Neurologic/Psych: Positive for: Alert, Oriented Medical Decision Making Medical Decision Making: Time: 2:40 Initial Impression: 41 year old female brought for public intoxication Initial Plan: --Urine --Urine drug screen --Alcohol serum --Accucheck --Pending reevaluation Time: 5:15 Patient is ambulating with steady gait in the ED. Speech is clear. Patient appears clinically sober and is stable for discharge. Clinical Impression: Alcohol abuse Scribe Attestation: Documented by Kaylin Arredondo, acting as a scribe for Samir Garcia MD Provider Scribe Attestation: All medical record entries made by the Scribe were at my direction and personally dictated by me. I have reviewed the chart and agree that the record accurately reflects my personal performance of the history, physical exam, medical decision making, and the department course for this patient. I have also personally directed, reviewed, and agree with the discharge instructions and disposition. Disposition - Clinical Impression Clinical Impression: Alcohol abuse with intoxication - Patient ED Disposition Is Patient to be Admitted: No Counseled Patient/Family Regarding: Diagnosis, Need For Followup - Disposition Disposition: Routine/Home Disposition Time: 05:15 Condition: STABLE Instructions: Alcohol Intoxication (ED) Forms: [employer] (Estonian)
[2017-08-07 03:24] VITALS: BP 104/63; PULSE 66; RESP 16; TEMP 97.4; O2SAT 99
== END 2017-08-07 05:30 | disposition home or self-care (01) ==
LOC: H.ER 01:51
DX: F10.129 Alcohol abuse with intoxication, unspecified (principal); F31.9 Bipolar disorder, unspecified; F41.9 Anxiety disorder, unspecified; G89.29 Other chronic pain; J44.9 Chronic obstructive pulmonary disease, unspecified

== ENCOUNTER 2017-08-14 17:11 | Emergency (ER) | payer MEDICAID ==
[2017-08-14 17:11] VITALS: BMI 22.6
[2017-08-14 17:38] VITALS: RESP 18
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
[2017-08-14 23:04] VITALS: BP 104/60; PULSE 82; TEMP 98; O2SAT 97
== END 2017-08-14 23:07 | disposition home or self-care (01) ==
LOC: H.ER 17:11
DX: F10.129 Alcohol abuse with intoxication, unspecified (principal); F17.200 Nicotine dependence, unspecified, uncomplicated; F31.9 Bipolar disorder, unspecified; F41.9 Anxiety disorder, unspecified; G89.29 Other chronic pain; J44.9 Chronic obstructive pulmonary disease, unspecified
CPT/HCPCS: 80320; 96372; 99282; J2060

== ENCOUNTER 2017-08-20 01:32 | Emergency (ER) | payer MEDICAID ==
[2017-08-20 01:32] VITALS: BMI 22.6
[2017-08-20 02:02] VITALS: BP 115/76; PULSE 76; RESP 16; TEMP 97.4; O2SAT 99
--- NOTE | 2017-08-20 03:05 | ED PDOC ---
HPI: Psych/Substance Abuse Time Seen by Provider: 08/20/17 02:01 Chief Complaint (Nursing): Substance Abuse History Per: Patient, EMS History/Exam Limitations: intoxication Additional Complaint(s): Pt. brought in by EMS for public intoxication. Pt. admits to drinking alcohol. Offers no complaints. Well known to ED. Past Medical History Reviewed: Historical Data, Nursing Documentation, Vital Signs Vital Signs: Last Vital Signs Temp 97.4 F L 08/20/17 01:59 Pulse 76 08/20/17 01:59 Resp 16 08/20/17 01:59 BP 115/76 08/20/17 01:59 Pulse Ox 99 08/20/17 01:59 - Medical History PMH: Anxiety, Asthma, Back Problems (herniated disc), Bipolar Disorder, COPD, Depression, Chronic Pain (Sciatica) Denies: Diabetes, Hepatitis, HIV, HTN, Chronic Kidney Disease, Seizures, Sexually Transmitted Disease - Family History Family History: States: Unknown Family Hx - Immunization History Hx Tetanus Toxoid Vaccination: Yes (2 years ago as per patient) Hx Influenza Vaccination: Yes (05/2015) Hx Pneumococcal Vaccination: No - Home Medications Home Medications: Ambulatory Orders Medication Instructions Recorded No Known Home Med 04/22/17 - Allergies Allergies/Adverse Reactions: Allergies Allergy/AdvReac Type Severity Reaction Status Date / Time tramadol Allergy Intermediate RASH Verified 08/14/17 17:13 Review of Systems Review Of Systems: ROS cannot be obtained secondary to pt's inabilty to answer questions. Physical Exam - Reviewed Nursing Documentation Reviewed: Yes Vital Signs Reviewed: Yes - Physical Exam Appears: Positive for: Well, Non-toxic, No Acute Distress Head Exam: Positive for: ATRAUMATIC, NORMAL INSPECTION, NORMOCEPHALIC Skin: Positive for: Normal Color, Warm. Negative for: Rash Eye Exam: Positive for: EOMI, Normal appearance, PERRL ENT: Positive for: Normal ENT Inspection Neck: Positive for: Normal, Painless ROM Cardiovascular/Chest: Positive for: Regular Rate, Rhythm Respiratory: Positive for: CNT, Normal Breath Sounds Gastrointestinal/Abdominal: Positive for: Normal Exam, Bowel Sounds, Soft. Negative for: Tenderness Back: Positive for: Normal Inspection Extremity: Positive for: Normal ROM Neurologic/Psych: Positive for: Alert, Oriented, Gait (steady, unassisted), Other (AOB, slurred speech). Negative for: Aphasia, Facial Droop - ECG O2 Sat by Pulse Oximetry: 99 - Progress Re-evaluation Time: 05:30 (Gait steady, unassisted. Clinically sober. ) Condition: Re-examined, Improved Disposition - Clinical Impression Clinical Impression: Alcohol intoxication - Patient ED Disposition Is Patient to be Admitted: No - Disposition Disposition: Routine/Home Disposition Time: 05:30 Condition: IMPROVED Instructions: Alcohol Intoxication (ED) Forms: [employer] (Egyptian)
== END 2017-08-20 05:51 | disposition home or self-care (01) ==
LOC: H.ER 01:32
DX: F10.129 Alcohol abuse with intoxication, unspecified (principal); F31.9 Bipolar disorder, unspecified; F41.9 Anxiety disorder, unspecified; G89.29 Other chronic pain; J44.9 Chronic obstructive pulmonary disease, unspecified

== ENCOUNTER 2017-08-22 22:20 | Emergency (ER) | payer MEDICAID ==
[2017-08-22 22:20] VITALS: BMI 22.6
[2017-08-22 22:32] VITALS: BP 129/81; PULSE 86; RESP 17; TEMP 97.9; O2SAT 99
--- NOTE | 2017-08-22 22:57 | ED PDOC ---
HPI: Psych/Substance Abuse Time Seen by Provider: 08/22/17 22:37 Chief Complaint (Nursing): Alcohol Ingestion Chief Complaint (Provider): Alcohol Intoxication ED Caveat: Intoxicated History Per: Patient History/Exam Limitations: intoxication Current Symptoms Are (Timing): Still Present Additional History Per: EMS Additional Complaint(s): Rhina is a 41 y/o female who was brought into the ED by EMS for public intoxication. Patient is undomiciled and is well known to this provider and ED. PMD: None Past Medical History Reviewed: Historical Data, Nursing Documentation, Vital Signs Vital Signs: Last Vital Signs Temp 97.9 F 08/22/17 22:30 Pulse 86 08/22/17 22:30 Resp 17 08/22/17 22:30 BP 129/81 08/22/17 22:30 Pulse Ox 99 08/22/17 22:30 - Medical History PMH: Anxiety, Asthma, Back Problems (herniated disc), Bipolar Disorder, COPD, Depression, Chronic Pain (Sciatica) Denies: Diabetes, Hepatitis, HIV, HTN, Chronic Kidney Disease, Seizures, Sexually Transmitted Disease - Family History Family History: States: Unknown Family Hx - Immunization History Hx Tetanus Toxoid Vaccination: Yes (2 years ago as per patient) Hx Influenza Vaccination: Yes (05/2015) Hx Pneumococcal Vaccination: No - Home Medications Home Medications: Ambulatory Orders Medication Instructions Recorded No Known Home Med 04/22/17 - Allergies Allergies/Adverse Reactions: Allergies Allergy/AdvReac Type Severity Reaction Status Date / Time tramadol Allergy Intermediate RASH Verified 08/14/17 17:13 Review of Systems Review Of Systems: ROS cannot be obtained secondary to pt's inabilty to answer questions. Physical Exam - Reviewed Nursing Documentation Reviewed: Yes Vital Signs Reviewed: Yes - Physical Exam Appears: Positive for: No Acute Distress Skin: Positive for: Normal Color Eye Exam: Positive for: Normal appearance Respiratory: Negative for: Respiratory Distress Extremity: Negative for: Pedal Edema, Deformity Neurologic/Psych: Positive for: Motor/Sensory Deficits (slurred speech, unsteady gait) - ECG O2 Sat by Pulse Oximetry: 99 (RA) Pulse Ox Interpretation: Normal Medical Decision Making Medical Decision Making: Time: 22:38 Initial Impression: 41 y/o intoxicated female Initial Plan: --alcohol serum --accucheck --Patient is stable for discharge Scribe Attestation: Documented by Brent Tabares, acting as a scribe for Samir Garcia MD Provider Scribe Attestation: All medical record entries made by the Scribe were at my direction and personally dictated by me. I have reviewed the chart and agree that the record accurately reflects my personal performance of the history, physical exam, medical decision making, and the department course for this patient. I have also personally directed, reviewed, and agree with the discharge instructions and disposition. Disposition - Clinical Impression Clinical Impression: Alcoholism - Patient ED Disposition Is Patient to be Admitted: No Counseled Patient/Family Regarding: Studies Performed, Diagnosis, Need For Followup - Disposition Disposition: Routine/Home Disposition Time: 22:40 Condition: STABLE Instructions: Alcohol Intoxication (ED) Forms: [employer] (Citizen [place])
== END 2017-08-22 23:07 | disposition home or self-care (01) ==
LOC: H.ER 22:20
DX: F10.229 Alcohol dependence with intoxication, unspecified (principal); F31.9 Bipolar disorder, unspecified; F41.9 Anxiety disorder, unspecified; G89.29 Other chronic pain; J44.9 Chronic obstructive pulmonary disease, unspecified

== ENCOUNTER 2017-08-28 12:21 | Emergency (ER) | payer MEDICAID ==
[2017-08-28 12:22] VITALS: BMI 22.6
[2017-08-28 12:28] VITALS: BP 127/91; PULSE 99; RESP 18; TEMP 97.4; O2SAT 99
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
== END 2017-08-28 13:00 | disposition home or self-care (01) ==
LOC: H.ER 12:21
DX: H11.32 Conjunctival hemorrhage, left eye (principal); Y04.0XXA Assault by unarmed brawl or fight, initial encounter; Y92.89 Other specified places as the place of occurrence of the external cause; F31.9 Bipolar disorder, unspecified; F41.9 Anxiety disorder, unspecified; G89.29 Other chronic pain; J44.9 Chronic obstructive pulmonary disease, unspecified; F17.210 Nicotine dependence, cigarettes, uncomplicated

== ENCOUNTER 2017-09-25 00:20 | Emergency (ER) | payer SELFPAY ==
[2017-09-25 00:20] VITALS: BMI 22.6
[2017-09-25 00:48] VITALS: BP 114/80; PULSE 72; RESP 18; TEMP 98.3; O2SAT 100
--- NOTE | 2017-09-25 01:50 | ED PDOC ---
HPI: Psych/Substance Abuse Time Seen by Provider: 09/25/17 00:50 Chief Complaint (Nursing): Medical Clearance Chief Complaint (Provider): Medical Clearance History Per: Patient History/Exam Limitations: no limitations Additional History Per: Law Enforcement Additional Complaint(s): 41 year old female brought in by Nam KELLER for medical clearance after being found publicly intoxicated. Had warrant for her arrest. Pt admitted to police that she was feeling suicidal, and now states she has been suicidal for years. Denies any chest pain, shortness of breath, suicidal plan, homicidal ideation, or hallucinations. Admits to drinking 1 gallon of alcohol. PMD: Provider TBD Past Medical History Reviewed: Historical Data, Nursing Documentation, Vital Signs Vital Signs: Last Vital Signs Temp 98.3 F 09/25/17 00:30 Pulse 72 09/25/17 00:30 Resp 18 09/25/17 00:30 BP 114/80 09/25/17 00:30 Pulse Ox 100 09/25/17 00:30 - Medical History PMH: Anxiety, Asthma, Back Problems (herniated disc), Bipolar Disorder, COPD, Depression, Chronic Pain (Sciatica) Denies: Diabetes, Hepatitis, HIV, HTN, Chronic Kidney Disease, Seizures, Sexually Transmitted Disease - Family History Family History: States: Unknown Family Hx - Social History Current smoker - smoking cessation education provided: Yes Alcohol: < 2 Drinks/Day Drugs: Denies - Immunization History Hx Tetanus Toxoid Vaccination: Yes (2 years ago as per patient) Hx Influenza Vaccination: Yes (05/2015) Hx Pneumococcal Vaccination: No - Home Medications Home Medications: Ambulatory Orders Medication Instructions Recorded Eye Patch 1 each MC DAILY #1 each 08/28/17 Naphazoline HCl/Pheniramine 1 - 2 ml OP TID #15 ml 08/28/17 [Visine-A 0.025%-0.3% 15 ml] - Allergies Allergies/Adverse Reactions: Allergies Allergy/AdvReac Type Severity Reaction Status Date / Time tramadol Allergy Intermediate RASH Verified 09/25/17 00:30 Review of Systems ROS Statement: Except As Marked, All Systems Reviewed And Found Negative Cardiovascular: Negative for: Chest Pain Respiratory: Negative for: Shortness of Breath Psych: Positive for: Suicidal ideation (with no plan). Negative for: Other ( homicidal ideation, hallucinations) Physical Exam - Reviewed Nursing Documentation Reviewed: Yes Vital Signs Reviewed: Yes - Physical Exam Appears: Positive for: Well, Non-toxic, No Acute Distress Head Exam: Positive for: ATRAUMATIC, NORMOCEPHALIC Skin: Positive for: Normal Color, Warm, Dry Eye Exam: Positive for: EOMI, Normal appearance, PERRL Neck: Positive for: Normal, Painless ROM Cardiovascular/Chest: Positive for: Regular Rate, Rhythm. Negative for: Murmur Respiratory: Positive for: Normal Breath Sounds. Negative for: Accessory Muscle Use, Respiratory Distress Gastrointestinal/Abdominal: Positive for: Normal Exam, Soft. Negative for: Tenderness Extremity: Positive for: Normal ROM. Negative for: Deformity Neurologic/Psych: Positive for: Alert, Oriented, Gait (Steady, unassisted), Other (Non-slurred speech) - ECG O2 Sat by Pulse Oximetry: 100 (RA) Pulse Ox Interpretation: Normal - Progress ED Course And Treament: Pt. evaluated by Samira, roller shop utility worker, who spoke with Dr. Miranda and cleared pt. for incarceration. Medical Decision Making Medical Decision Making: Initial Plan: --Crisis will evaluate patient Scribe Attestation: Documented by Kaylin Arredondo, acting as a scribe for Kuldip Aceves PA-C. Provider Scribe Attestation: All medical record entries made by the Scribe were at my direction and personally dictated by me. I have reviewed the chart and agree that the record accurately reflects my personal performance of the history, physical exam, medical decision making, and the department course for this patient. I have also personally directed, reviewed, and agree with the discharge instructions and disposition. Disposition - Clinical Impression Clinical Impression: Adjustment disorder, Alcohol intoxication - Patient ED Disposition Is Patient to be Admitted: No - Disposition Disposition: Discharged/Transfer to Law Enforcement Disposition Time: 01:57 Condition: STABLE Additional Instructions: Patient is medically and psychiatrically cleared for incarceration. Instructions: Mood Disorders (ED) Forms: [employer] (Kiswahili) Print Language: TELUGU
== END 2017-09-25 02:11 | disposition home or self-care (01) ==
LOC: H.ER 00:20
DX: R45.851 Suicidal ideations; F17.200 Nicotine dependence, unspecified, uncomplicated; F10.129 Alcohol abuse with intoxication, unspecified; F31.9 Bipolar disorder, unspecified; F43.22 Adjustment disorder with anxiety; G89.29 Other chronic pain; J44.9 Chronic obstructive pulmonary disease, unspecified

== ENCOUNTER 2017-10-27 20:51 | Emergency (ER) | payer SELFPAY ==
[2017-10-27 20:52] VITALS: BMI 22.6
[2017-10-27 20:59] VITALS: BP 122/79; PULSE 80; RESP 18; TEMP 97.9; O2SAT 98
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
== END 2017-10-27 23:51 | disposition home or self-care (01) ==
LOC: H.ER 20:51
DX: Z00.00 Encounter for general adult medical examination without abnormal findings (principal)

== ENCOUNTER 2017-10-30 01:00 | Emergency (ER) | payer SELFPAY ==
[2017-10-30 01:00] VITALS: BMI 22.6
[2017-10-30 01:16] VITALS: BP 116/79; PULSE 82; RESP 18; TEMP 98.2; O2SAT 98
--- NOTE | 2017-10-30 02:43 | ED PDOC ---
HPI: Psych/Substance Abuse Chief Complaint (Nursing): Alcohol Ingestion Chief Complaint (Provider): etoh History Per: Patient, EMS Additional Complaint(s): 42 y/o female brought in by EMS for acute alcohol intoxication. Patient admits to drinking today, wants place to sleep. Denies acute medical or psychiatric complaints. Past Medical History Reviewed: Historical Data, Nursing Documentation, Vital Signs Vital Signs: Last Vital Signs Temp 98.2 F 10/30/17 01:12 Pulse 82 10/30/17 01:12 Resp 18 10/30/17 01:12 BP 116/79 10/30/17 01:12 Pulse Ox 98 10/30/17 01:12 - Medical History PMH: Anxiety, Asthma, Back Problems (herniated disc), Bipolar Disorder, COPD, Depression, Chronic Pain (Sciatica) Denies: Diabetes, Hepatitis, HIV, HTN, Chronic Kidney Disease, Seizures, Sexually Transmitted Disease - Family History Family History: States: Unknown Family Hx - Immunization History Hx Tetanus Toxoid Vaccination: Yes (2 years ago as per patient) Hx Influenza Vaccination: Yes (05/2015) Hx Pneumococcal Vaccination: No - Home Medications Home Medications: Ambulatory Orders Medication Instructions Recorded Eye Patch 1 each MC DAILY #1 each 08/28/17 Naphazoline HCl/Pheniramine 1 - 2 ml OP TID #15 ml 08/28/17 [Visine-A 0.025%-0.3% 15 ml] - Allergies Allergies/Adverse Reactions: Allergies Allergy/AdvReac Type Severity Reaction Status Date / Time tramadol Allergy Intermediate RASH Verified 09/25/17 00:30 Review of Systems ROS Statement: Except As Marked, All Systems Reviewed And Found Negative Physical Exam - Reviewed Nursing Documentation Reviewed: Yes Vital Signs Reviewed: Yes - Physical Exam Appears: Positive for: Well, Non-toxic, No Acute Distress Head Exam: Positive for: ATRAUMATIC, NORMAL INSPECTION, NORMOCEPHALIC Skin: Positive for: Normal Color Cardiovascular/Chest: Positive for: Regular Rate, Rhythm Respiratory: Positive for: Normal Breath Sounds Extremity: Positive for: Normal ROM Neurologic/Psych: Positive for: Alert, Oriented - ECG O2 Sat by Pulse Oximetry: 98 - Progress ED Course And Treament: accucheck 2:30 Patient sleeping; no distress 4:00 Patient sleeping; no distress 5:30 Patient awake, alert, oriented x3. Ambulating steady gait. Stable for discharge Disposition - Clinical Impression Clinical Impression: Alcohol abuse with intoxication Counseled Patient/Family Regarding: Studies Performed, Diagnosis, Need For Followup - Disposition Disposition: Routine/Home Disposition Time: 05:25 Condition: STABLE Instructions: Alcohol Abuse and Alcoholism (DC)
== END 2017-10-30 05:42 | disposition home or self-care (01) ==
LOC: H.ER 01:00
DX: F10.129 Alcohol abuse with intoxication, unspecified (principal); F31.9 Bipolar disorder, unspecified; F41.9 Anxiety disorder, unspecified; G89.29 Other chronic pain; J44.9 Chronic obstructive pulmonary disease, unspecified

== ENCOUNTER 2017-11-10 03:50 | Emergency (ER) | payer SELFPAY ==
[2017-11-10 03:50] VITALS: BMI 22.6
[2017-11-10 04:35] VITALS: BP 136/84; PULSE 74; RESP 18; TEMP 98.6; O2SAT 98
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
== END 2017-11-10 07:01 | disposition home or self-care (01) ==
LOC: H.ER 03:50
DX: M54.2 Cervicalgia (principal); F17.200 Nicotine dependence, unspecified, uncomplicated; Z86.59 Personal history of other mental and behavioral disorders; G89.29 Other chronic pain; J44.9 Chronic obstructive pulmonary disease, unspecified

== ENCOUNTER 2017-11-20 00:29 | Emergency (ER) | payer SELFPAY ==
[2017-11-20 00:38] VITALS: BMI 23.1
[2017-11-20 00:43] VITALS: BP 139/88; PULSE 77; RESP 16; TEMP 97.2; O2SAT 100
--- NOTE | 2017-11-20 01:39 | ED PDOC ---
HPI: Psych/Substance Abuse Time Seen by Provider: 11/20/17 00:40 Chief Complaint (Nursing): Alcohol Ingestion History Per: EMS History/Exam Limitations: intoxication Additional Complaint(s): Pt. brought in by EMS for public intoxication. Pt. well known to ED and to film writer. Offers no complaints. Admits to drinking alcohol. Past Medical History Reviewed: Historical Data, Nursing Documentation, Vital Signs Vital Signs: Last Vital Signs Temp 97.2 F L 11/20/17 00:39 Pulse 77 11/20/17 00:39 Resp 16 11/20/17 00:39 BP 139/88 11/20/17 00:39 Pulse Ox 100 11/20/17 00:39 - Medical History PMH: Anxiety, Asthma, Back Problems (herniated disc), Bipolar Disorder, COPD, Depression, Chronic Pain (Sciatica) Denies: Diabetes, Hepatitis, HIV, HTN, Chronic Kidney Disease, Seizures, Sexually Transmitted Disease - Family History Family History: States: Unknown Family Hx - Immunization History Hx Tetanus Toxoid Vaccination: Yes (2 years ago as per patient) Hx Influenza Vaccination: Yes (05/2015) Hx Pneumococcal Vaccination: No - Home Medications Home Medications: Ambulatory Orders Medication Instructions Recorded Eye Patch 1 each MC DAILY #1 each 08/28/17 Naphazoline HCl/Pheniramine 1 - 2 ml OP TID #15 ml 08/28/17 [Visine-A 0.025%-0.3% 15 ml] - Allergies Allergies/Adverse Reactions: Allergies Allergy/AdvReac Type Severity Reaction Status Date / Time tramadol Allergy Intermediate RASH Verified 11/20/17 00:38 Review of Systems Review Of Systems: ROS cannot be obtained secondary to pt's inabilty to answer questions. Physical Exam - Reviewed Nursing Documentation Reviewed: Yes Vital Signs Reviewed: Yes - Physical Exam Appears: Positive for: Well, Non-toxic, No Acute Distress Head Exam: Positive for: ATRAUMATIC, NORMAL INSPECTION, NORMOCEPHALIC Skin: Positive for: Normal Color, Warm. Negative for: Rash Eye Exam: Positive for: EOMI, Normal appearance, PERRL ENT: Positive for: Normal ENT Inspection Neck: Positive for: Normal, Painless ROM Cardiovascular/Chest: Positive for: Regular Rate, Rhythm Respiratory: Positive for: CNT, Normal Breath Sounds Gastrointestinal/Abdominal: Positive for: Normal Exam, Soft. Negative for: Tenderness Back: Positive for: Normal Inspection Extremity: Positive for: Normal ROM Neurologic/Psych: Positive for: Alert, Gait (unsteady), Other (AOB; slurred speech; obeys commands; answers questions appropriately). Negative for: Aphasia , Facial Droop - ECG O2 Sat by Pulse Oximetry: 100 - Progress ED Course And Treament: [id number] Sleeping comfortably. No distress. 0559 Gait steady, unassisted. No slurred speech. Clinically sober. Disposition - Clinical Impression Clinical Impression: Alcohol intoxication - Patient ED Disposition Is Patient to be Admitted: No - Disposition Disposition: Routine/Home Disposition Time: 06:00 Condition: IMPROVED Instructions: Alcohol Abuse and Alcoholism (DC) Forms: [employer] (Fijian)
== END 2017-11-20 06:04 | disposition home or self-care (01) ==
LOC: H.ER 00:29
DX: F10.129 Alcohol abuse with intoxication, unspecified (principal); F31.9 Bipolar disorder, unspecified; F41.9 Anxiety disorder, unspecified; G89.29 Other chronic pain; J44.9 Chronic obstructive pulmonary disease, unspecified

== ENCOUNTER 2017-11-21 03:34 | Emergency (ER) | payer SELFPAY ==
[2017-11-21 03:46] VITALS: BMI 22.1
[2017-11-21 03:52] VITALS: RESP 16; TEMP 98.4
--- NOTE | 2017-11-21 04:36 | ED PDOC ---
HPI: Psych/Substance Abuse Time Seen by Provider: 11/21/17 03:48 Chief Complaint (Nursing): Alcohol Ingestion Chief Complaint (Provider): Alcohol Ingestion ED Caveat: Intoxicated Additional Complaint(s): 42 y/o female is brought to the ED by EMS for public intoxication. Patient was found at local [employer] and admits to heroin use. Patient is well known to providers in ED for multiple visits. Past Medical History Reviewed: Historical Data, Nursing Documentation, Vital Signs Vital Signs: Last Vital Signs Temp 98.4 F 11/21/17 03:46 Pulse 104 H 11/21/17 03:46 Resp 16 11/21/17 03:46 BP 126/84 11/21/17 03:46 Pulse Ox 94 L 11/21/17 03:46 - Medical History PMH: Anxiety, Asthma, Back Problems (herniated disc), Bipolar Disorder, COPD, Depression, Chronic Pain (Sciatica) Denies: Diabetes, Hepatitis, HIV, HTN, Chronic Kidney Disease, Seizures, Sexually Transmitted Disease - Surgical History Surgical History: No Surg Hx - Family History Family History: States: Unknown Family Hx - Social History Current smoker - smoking cessation education provided: Yes (Heavy Smoker > 10 Cigarettes Daily) Alcohol: > 2 Drinks/Day Drugs: Denies - Immunization History Hx Tetanus Toxoid Vaccination: Yes (2 years ago as per patient) Hx Influenza Vaccination: Yes (05/2015) Hx Pneumococcal Vaccination: No - Home Medications Home Medications: Ambulatory Orders Medication Instructions Recorded Eye Patch 1 each MC DAILY #1 each 08/28/17 Naphazoline HCl/Pheniramine 1 - 2 ml OP TID #15 ml 08/28/17 [Visine-A 0.025%-0.3% 15 ml] - Allergies Allergies/Adverse Reactions: Allergies Allergy/AdvReac Type Severity Reaction Status Date / Time tramadol Allergy Intermediate RASH Verified 11/21/17 03:45 Review of Systems ROS Statement: Except As Marked, All Systems Reviewed And Found Negative (As per HPI, otherwise negative) Constitutional: Positive for: Other (Alcohol intoxication) Physical Exam - Reviewed Nursing Documentation Reviewed: Yes Vital Signs Reviewed: Yes - Physical Exam Appears: Positive for: No Acute Distress Head Exam: Positive for: ATRAUMATIC, NORMAL INSPECTION, NORMOCEPHALIC Skin: Positive for: Normal Color, Warm, Dry Eye Exam: Positive for: EOMI, Normal appearance, PERRL ENT: Positive for: Normal ENT Inspection Neck: Positive for: Normal, Painless ROM, Supple Cardiovascular/Chest: Positive for: Regular Rate, Rhythm. Negative for: Murmur Respiratory: Positive for: Normal Breath Sounds. Negative for: Accessory Muscle Use, Respiratory Distress Gastrointestinal/Abdominal: Positive for: Normal Exam, Bowel Sounds, Soft. Negative for: Tenderness Back: Positive for: Normal Inspection Extremity: Positive for: Normal ROM. Negative for: Deformity Neurologic/Psych: Positive for: Alert, Oriented (x3) - ECG O2 Sat by Pulse Oximetry: 94 (RA) Pulse Ox Interpretation: Normal Medical Decision Making Medical Decision Making: Impression: Alcohol Intoxication Time: 06:45 --Patient alert and oriented x3, has steady gait and is speaking clearly. --Patient is medically stable for discharge home. Scribe Attestation: Documented by William Soni, acting as a scribe for Samir Garcia MD. Scribe Attestation: All medical record entries made by the Scribe were at my direction and personally dictated by me. I have reviewed the chart and agree that the record accurately reflects my personal performance of the history, physical exam, medical decision making, and the department course for this patient. I have also personally directed, reviewed, and agree with the discharge instructions and disposition. Disposition - Clinical Impression Clinical Impression: Alcohol intoxication - Patient ED Disposition Is Patient to be Admitted: No - Disposition Disposition Time: 06:00 Condition: STABLE Instructions: Alcohol Abuse and Alcoholism (DC) Forms: [employer] (Spanish)
[2017-11-21 06:14] VITALS: BP 118/75; PULSE 78
[2017-11-21 06:52] VITALS: O2SAT 94
== END 2017-11-21 06:29 | disposition home or self-care (01) ==
LOC: H.ER 03:34
DX: F10.129 Alcohol abuse with intoxication, unspecified (principal); F17.210 Nicotine dependence, cigarettes, uncomplicated; Z86.59 Personal history of other mental and behavioral disorders; G89.29 Other chronic pain; J44.9 Chronic obstructive pulmonary disease, unspecified

== ENCOUNTER 2017-11-25 18:49 | Emergency (ER) | payer SELFPAY ==
[2017-11-25 18:49] VITALS: BMI 22.1
[2017-11-25 18:53] VITALS: BP 116/82; PULSE 80; RESP 16; TEMP 97.8; O2SAT 98
--- NOTE | 2017-11-25 19:23 | ED PDOC ---
HPI: Psych/Substance Abuse Time Seen by Provider: 11/25/17 18:53 Chief Complaint (Nursing): Psychiatric Evaluation Chief Complaint (Provider): Psychiatric evaluation History Per: Patient History/Exam Limitations: no limitations Onset/Duration Of Symptoms: Hrs (today) Associated Symptoms: denies: Suicidal Thoughts, Suicidal Plan Involuntary Hold By: None Additional Complaint(s): Rhina Ledezma is a 42 year old female, with a past medical history of COPD, asthma and bipolar disorder, who was brought to the emergency department via EMS and states she called the ambulance and told them she was suicidal but admits to provider that she said that in order to get a ride to ER. Patient admits to not taking her heroin bag today. Patient states she usually takes 13 bags per day, last time was yesterday. Patient adamantly denies suicidal ideation, and is requesting a bed to sleep because it's snowing outside. She denies any homicidal ideation, visual or auditory hallucinations. No further medical complaints. PMD: None provided. Past Medical History Reviewed: Historical Data, Nursing Documentation, Vital Signs Vital Signs: Last Vital Signs Temp 97.8 F 11/25/17 18:50 Pulse 80 11/25/17 18:50 Resp 16 11/25/17 18:50 BP 116/82 11/25/17 18:50 Pulse Ox 98 11/25/17 18:50 - Medical History PMH: Anxiety, Asthma, Back Problems (herniated disc), Bipolar Disorder, COPD, Depression, Chronic Pain (Sciatica) Denies: Diabetes, Hepatitis, HIV, HTN, Chronic Kidney Disease, Seizures, Sexually Transmitted Disease - Surgical History Surgical History: No Surg Hx - Family History Family History: States: Unknown Family Hx - Immunization History Hx Tetanus Toxoid Vaccination: Yes (2 years ago as per patient) Hx Influenza Vaccination: Yes (05/2015) Hx Pneumococcal Vaccination: No - Home Medications Home Medications: Ambulatory Orders Medication Instructions Recorded Eye Patch 1 each MC DAILY #1 each 08/28/17 Naphazoline HCl/Pheniramine 1 - 2 ml OP TID #15 ml 08/28/17 [Visine-A 0.025%-0.3% 15 ml] - Allergies Allergies/Adverse Reactions: Allergies Allergy/AdvReac Type Severity Reaction Status Date / Time tramadol Allergy Intermediate RASH Verified 11/25/17 18:50 Review of Systems ROS Statement: Except As Marked, All Systems Reviewed And Found Negative Psych: Negative for: Suicidal ideation (or homicidal ideation), Other (auditory or visual hallucinations) Physical Exam - Reviewed Nursing Documentation Reviewed: Yes Vital Signs Reviewed: Yes - Physical Exam Appears: Positive for: Well, Non-toxic, No Acute Distress Head Exam: Positive for: ATRAUMATIC, NORMAL INSPECTION, NORMOCEPHALIC Skin: Positive for: Normal Color, Warm, Dry Eye Exam: Positive for: Normal appearance, EOMI, PERRL Neck: Positive for: Painless ROM Cardiovascular/Chest: Positive for: Regular Rate, Rhythm. Negative for: Murmur Respiratory: Positive for: Normal Breath Sounds. Negative for: Respiratory Distress Gastrointestinal/Abdominal: Positive for: Normal Exam, Soft. Negative for: Tenderness Extremity: Positive for: Normal ROM. Negative for: Deformity, Swelling Neurologic/Psych: Positive for: Alert, Oriented, Gait (steady) - ECG O2 Sat by Pulse Oximetry: 98 (RA) Pulse Ox Interpretation: Normal Medical Decision Making Medical Decision Making: Initial Impression: Psych evaluation Initial Plan: --Glucose, Blood, POC ~ Scribe Attestation: Documented by Mesfin Lopez, acting as a scribe for Kuldip Aceves PA-C. Provider Scribe Attestation: All medical record entries made by the Scribe were at my direction and personally dictated by me. I have reviewed the chart and agree that the record accurately reflects my personal performance of the history, physical exam, medical decision making, and the department course for this patient. I have also personally directed, reviewed, and agree with the discharge instructions and disposition. Disposition - Clinical Impression Clinical Impression: Malingerer, Heroin abuse - Patient ED Disposition Is Patient to be Admitted: No - Disposition Disposition: Routine/Home Disposition Time: 20:00 Condition: STABLE Instructions: Drug Abuse and Drug Addiction (DC) Forms: [employer] (Tajik)
== END 2017-11-25 23:14 | disposition home or self-care (01) ==
LOC: H.ER 18:49
DX: F11.10 Opioid abuse, uncomplicated (principal); Z76.5 Malingerer [conscious simulation]

== ENCOUNTER 2017-11-26 22:38 | Emergency (ER) | payer SELFPAY ==
[2017-11-26 22:38] VITALS: BMI 22.1
[2017-11-26 22:43] VITALS: BP 110/72; PULSE 97; RESP 19; TEMP 97.8; O2SAT 98
--- NOTE | 2017-11-27 03:37 | ED PDOC ---
HPI: Psych/Substance Abuse Time Seen by Provider: 11/26/17 22:47 Chief Complaint (Nursing): Alcohol Ingestion Chief Complaint (Provider): Alcohol Ingestion ED Caveat: Uncooperative History Per: Patient Suicide/Self Injury Attempted (Context): None Modifying Factor(s): Alcohol Additional Complaint(s): 42 year old female brought in by EMS presents to ED with complaints of EtOH intoxication. Patient admits to drinking 4 pints of vodka tonight and is well known to ED staff for alcohol abuse and bed-seeking behavior. Patient denies having any physical complaints at this time. PCP: Simon Past Medical History Reviewed: Historical Data, Nursing Documentation, Vital Signs Vital Signs: Last Vital Signs Temp 97.8 F 11/26/17 22:42 Pulse 97 H 11/26/17 22:42 Resp 19 11/26/17 22:42 BP 110/72 11/26/17 22:42 Pulse Ox 98 11/26/17 22:42 - Medical History PMH: Anxiety, Asthma, Back Problems (herniated disc), Bipolar Disorder, COPD, Depression, Chronic Pain (Sciatica) Denies: Diabetes, Hepatitis, HIV, HTN, Chronic Kidney Disease, Seizures, Sexually Transmitted Disease - Surgical History Surgical History: No Surg Hx - Family History Family History: States: Unknown Family Hx - Living Arrangements Living Arrangements: With Family - Social History Alcohol: > 2 Drinks/Day - Immunization History Hx Tetanus Toxoid Vaccination: Yes (2 years ago as per patient) Hx Influenza Vaccination: Yes (05/2015) Hx Pneumococcal Vaccination: No - Home Medications Home Medications: Ambulatory Orders Medication Instructions Recorded Eye Patch 1 each MC DAILY #1 each 08/28/17 Naphazoline HCl/Pheniramine 1 - 2 ml OP TID #15 ml 08/28/17 [Visine-A 0.025%-0.3% 15 ml] - Allergies Allergies/Adverse Reactions: Allergies Allergy/AdvReac Type Severity Reaction Status Date / Time tramadol Allergy Intermediate RASH Verified 11/26/17 22:43 Review of Systems ROS Statement: Except As Marked, All Systems Reviewed And Found Negative ( patient denies having any physical complaints) Physical Exam - Reviewed Nursing Documentation Reviewed: Yes Vital Signs Reviewed: Yes - Physical Exam Appears: Positive for: Non-toxic, No Acute Distress Head Exam: Positive for: ATRAUMATIC, NORMOCEPHALIC Eye Exam: Positive for: EOMI, PERRL, Conjunctival injection (bilaterally). Negative for: Nystagmus Neck: Positive for: Painless ROM, Supple Cardiovascular/Chest: Positive for: Regular Rate, Rhythm. Negative for: Murmur Respiratory: Positive for: Normal Breath Sounds. Negative for: Decreased Breath Sounds, Accessory Muscle Use, Respiratory Distress Neurologic/Psych: Positive for: Alert, Oriented (x3), Gait (steady, unassisted in ED) Comments: Exam limited due to patient's uncooperative nature. - ECG O2 Sat by Pulse Oximetry: 98 (RA) Pulse Ox Interpretation: Normal Medical Decision Making Medical Decision Makin Initial impression: EtOH intoxication Initial plan: * Accucheck 1230 Patient sleeping comfortably in ED stretcher. 0200 Accucheck: 126 On re-evaluation, patient reports improvement of symptoms. On exam, patient remains AAOx3, in no acute distress. Lungs clear to auscultation, cardiac RRR, repeat neuro exam shows no focal findings. Patient ambulatory in ED without assistance and with a steady gait. Lab/ Diagnostics results d/w the patient in great detail. Diagnosis of alcohol ingestion/abuse d/w the patient. Based on history, exam and diagnostic results, plan will be for outpatient follow up. Patient instructed to follow-up with pmd / referral provided / the clinic in 1- 2 days without fail. Return to the emergency room at any time for any new or worsening symptoms. Patient states she fully agrees with and understands discharge instructions. States that she agrees with the plan and disposition. Verbalized and repeated discharge instructions and plan. I have given the patient opportunity to ask any additional questions. Scribe Attestation: Documented by Cecilia Mcqueen acting as a scribe for Jacklyn Dejesus PA-C. MD Scribe Attestation: All medical record entries made by the Scribe were at my direction and personally dictated by me. I have reviewed the chart and agree that the record accurately reflects my personal performance of the history, physical exam, medical decision making, and the department course for this patient. I have also personally directed, reviewed, and agree with the discharge instructions and disposition. Disposition - Clinical Impression Clinical Impression: Alcohol intoxication - Patient ED Disposition Is Patient to be Admitted: No Counseled Patient/Family Regarding: Diagnosis, Need For Followup - Disposition Referrals: [facility] [Outside] Disposition: Routine/Home Disposition Time: 02:00 Condition: FAIR Instructions: Alcohol Abuse and Alcoholism (DC) Forms: [employer] (Lithuanian) Print Language: BELGIAN - POA Present On Arrival: None
== END 2017-11-27 06:55 | disposition home or self-care (01) ==
LOC: H.ER 22:38
DX: F10.129 Alcohol abuse with intoxication, unspecified (principal); F31.9 Bipolar disorder, unspecified; F41.9 Anxiety disorder, unspecified; G89.29 Other chronic pain; J44.9 Chronic obstructive pulmonary disease, unspecified

== ENCOUNTER 2017-11-28 04:31 | Emergency (ER) | payer SELFPAY ==
[2017-11-28 04:31] VITALS: BMI 22.1
[2017-11-28 04:54] VITALS: BP 129/83; PULSE 73; RESP 17; TEMP 98.2; O2SAT 98
--- NOTE | 2017-11-28 06:03 | ED PDOC ---
HPI: CCC, URI, Sore Throat Time Seen by Provider: 11/28/17 05:10 Chief Complaint (Nursing): ENT Problem Chief Complaint (Provider): ENT Problem History Per: Patient History/Exam Limitations: no limitations Additional Complaint(s): 42 y/o female presents to the ED complaining of sore throat and bilateral ear pain. Patient is well known to ED for multiple visits for alcoholism. Left ear pain is greater than right ear pain. Reports that she is able to swallow but it hurts. Denies any further medical complaints. Past Medical History Reviewed: Historical Data, Nursing Documentation, Vital Signs Vital Signs: Last Vital Signs Temp 98.2 F 11/28/17 04:44 Pulse 73 11/28/17 04:44 Resp 17 11/28/17 04:44 BP 129/83 11/28/17 04:44 Pulse Ox 98 11/28/17 04:44 - Medical History PMH: Anxiety, Asthma, Back Problems (herniated disc), Bipolar Disorder, COPD, Depression, Chronic Pain (Sciatica) Denies: Diabetes, Hepatitis, HIV, HTN, Chronic Kidney Disease, Seizures, Sexually Transmitted Disease - Surgical History Surgical History: No Surg Hx - Family History Family History: States: Unknown Family Hx - Social History Current smoker - smoking cessation education provided: No Alcohol: None Drugs: Denies - Immunization History Hx Tetanus Toxoid Vaccination: Yes (2 years ago as per patient) Hx Influenza Vaccination: Yes (05/2015) Hx Pneumococcal Vaccination: No - Home Medications Home Medications: Ambulatory Orders Medication Instructions Recorded Eye Patch 1 each MC DAILY #1 each 08/28/17 Naphazoline HCl/Pheniramine 1 - 2 ml OP TID #15 ml 08/28/17 [Visine-A 0.025%-0.3% 15 ml] Azithromycin [Zithromax] 250 mg PO QAM #1 pkg 11/28/17 - Allergies Allergies/Adverse Reactions: Allergies Allergy/AdvReac Type Severity Reaction Status Date / Time tramadol Allergy Intermediate RASH Verified 11/26/17 22:43 Review of Systems ROS Statement: Except As Marked, All Systems Reviewed And Found Negative (As per HPI, otherwise negative) ENT: Positive for: Ear Pain, Other (Sore throat) Physical Exam - Reviewed Nursing Documentation Reviewed: Yes Vital Signs Reviewed: Yes - Physical Exam Appears: Positive for: Non-toxic, No Acute Distress Head Exam: Positive for: ATRAUMATIC, NORMAL INSPECTION, NORMOCEPHALIC Skin: Positive for: Normal Color, Warm, Dry Eye Exam: Positive for: EOMI, Normal appearance, PERRL ENT: Positive for: Tonsillar Swelling (1+ tonsil with erythema). Negative for: Tonsillar Exudate Neck: Positive for: Normal, Painless ROM, Supple Cardiovascular/Chest: Positive for: Regular Rate, Rhythm. Negative for: Murmur Respiratory: Positive for: Normal Breath Sounds. Negative for: Accessory Muscle Use, Respiratory Distress Gastrointestinal/Abdominal: Positive for: Normal Exam, Bowel Sounds, Soft. Negative for: Tenderness Back: Positive for: Normal Inspection Extremity: Positive for: Normal ROM. Negative for: Deformity Neurologic/Psych: Positive for: Alert, Oriented (x3) - ECG O2 Sat by Pulse Oximetry: 98 (RA) Pulse Ox Interpretation: Normal Medical Decision Making Medical Decision Making: Time: 05:14 Initial Impression: 42 y/o female with sore throat and ear pain Plan: Azithromycin 500mg PO Ibuprofen 600mg PO Reevaluation Time: 05:40 Upon provider reevaluation patient is feeling better, is medically stable, and requires no further treatment in the ED at this time. Patient will be discharged home with Rx for Azithromycin 250 mg. Counseling was provided and all questions were answered regarding diagnosis. There is agreement to discharge plan. Return if symptoms persist or worsen. Clinical Impression: Left [employer] Scribe Attestation: Documented by William Soni acting as a scribe for Samir Garcia MD. MD Laraibe Attestation: All medical record entries made by the Scribe were at my direction and personally dictated by me. I have reviewed the chart and agree that the record accurately reflects my personal performance of the history, physical exam, medical decision making, and the department course for this patient. I have also personally directed, reviewed, and agree with the discharge instructions and disposition. Disposition - Clinical Impression Clinical Impression: Left otitis media - Disposition Disposition: Routine/Home Disposition Time: 05:40 Condition: STABLE Prescriptions: Azithromycin [Zithromax] 250 mg PO QAM #1 pkg Instructions: Ear Infections (Otitis Media) Forms: [email or web address] (Singaporean)
== END 2017-11-28 05:20 | disposition home or self-care (01) ==
LOC: H.ER 04:31
DX: H66.92 Otitis media, unspecified, left ear (principal); Z86.59 Personal history of other mental and behavioral disorders; G89.29 Other chronic pain; J44.9 Chronic obstructive pulmonary disease, unspecified

== ENCOUNTER 2017-11-28 20:44 | Emergency (ER) | payer SELFPAY ==
[2017-11-28 20:44] VITALS: BMI 22.1
[2017-11-28 20:47] VITALS: RESP 16
--- NOTE | 2017-11-28 22:55 | ED PDOC ---
HPI: Psych/Substance Abuse Time Seen by Provider: 11/28/17 20:58 Chief Complaint (Nursing): Alcohol Ingestion Chief Complaint (Provider): Intoxication ED Caveat: Intoxicated History Per: Patient History/Exam Limitations: intoxication Current Symptoms Are (Timing): Still Present Ingestion Of Substance: alcohol pt denies illicit drugs Severity: Moderate Past Medical History Vital Signs: Last Vital Signs Temp 97.4 F L 11/28/17 20:47 Pulse 80 11/28/17 20:47 Resp 16 11/28/17 20:47 BP 117/73 11/28/17 20:47 Pulse Ox 100 11/28/17 20:47 - Medical History PMH: Anxiety, Asthma, Back Problems (herniated disc), Bipolar Disorder, COPD, Depression, Chronic Pain (Sciatica) Denies: Diabetes, Hepatitis, HIV, HTN, Chronic Kidney Disease, Seizures, Sexually Transmitted Disease - Family History Family History: States: Unknown Family Hx - Immunization History Hx Tetanus Toxoid Vaccination: Yes (2 years ago as per patient) Hx Influenza Vaccination: Yes (05/2015) Hx Pneumococcal Vaccination: No - Home Medications Home Medications: Ambulatory Orders Medication Instructions Recorded Eye Patch 1 each MC DAILY #1 each 08/28/17 Naphazoline HCl/Pheniramine 1 - 2 ml OP TID #15 ml 08/28/17 [Visine-A 0.025%-0.3% 15 ml] Azithromycin [Zithromax] 250 mg PO QAM #1 pkg 11/28/17 - Allergies Allergies/Adverse Reactions: Allergies Allergy/AdvReac Type Severity Reaction Status Date / Time tramadol Allergy Intermediate RASH Verified 11/26/17 22:43 Review of Systems Review Of Systems: ROS cannot be obtained secondary to pt's inabilty to answer questions. Psych: Positive for: Other (intoxication from alcohol) Physical Exam - Reviewed Nursing Documentation Reviewed: Yes Vital Signs Reviewed: Yes - Physical Exam Appears: Positive for: No Acute Distress Head Exam: Positive for: NORMAL INSPECTION, NORMOCEPHALIC. Negative for: ATRAUMATIC (pt has superficial laceration measruing <1cm at left lateral eye brow; wound is closed and is not hemorrhaging) Skin: Positive for: Normal Color Neck: Positive for: Normal, Painless ROM, Supple. Negative for: Decreased ROM Cardiovascular/Chest: Positive for: Regular Rate, Rhythm, Chest Non Tender. Negative for: Edema, Gallop, Murmur, Bradycardia, Tachycardia Respiratory: Positive for: Normal Breath Sounds. Negative for: Crackles, Rales , Rhonchi, Stridor, Wheezing, Respiratory Distress Pulses-Carotid (L): 2+ Pulses-Radial (L): 2+ Pulses-Radial (R): 2+ Gastrointestinal/Abdominal: Positive for: Normal Exam, Bowel Sounds, Soft. Negative for: Tenderness - ECG O2 Sat by Pulse Oximetry: 100 Medical Decision Making Medical Decision Making: pt awaiting clinical sobriety Pt clinically sober at 0500 with steady gait and speaking in clear sentences Disposition - Clinical Impression Clinical Impression: Alcohol intolerance, Intoxication, Alcohol dependence - Disposition Referrals: [facility] [Outside] Disposition Time: 05:44 Condition: GOOD Instructions: Alcohol Use - When Is Drinking a Problem?, Alcohol Abuse and Alcoholism (DC), Effects of Alcohol on Your Health Forms: [employer] (Telugu)
[2017-11-29 05:16] VITALS: O2SAT 100
[2017-11-29 06:30] VITALS: BP 111/68; PULSE 83; TEMP 98.3
== END 2017-11-29 05:30 | disposition home or self-care (01) ==
LOC: H.ER 20:44
DX: F10.229 Alcohol dependence with intoxication, unspecified (principal); Z86.59 Personal history of other mental and behavioral disorders; G89.29 Other chronic pain; J44.9 Chronic obstructive pulmonary disease, unspecified

== ENCOUNTER 2017-12-02 23:20 | Emergency (ER) | payer SELFPAY ==
--- NOTE | 2017-12-02 23:40 | ED PDOC ---
HPI: Psych/Substance Abuse Time Seen by Provider: 12/02/17 23:25 Chief Complaint (Nursing): Alcohol Ingestion ED Caveat: Intoxicated History Per: Patient History/Exam Limitations: intoxication Onset/Duration Of Symptoms: Hrs Current Symptoms Are (Timing): Still Present Additional Complaint(s): Patient well known to ER, hx of ETOH abuse p/w ETOH. Brought in by EMS after being found intoxicated outside a [employer]. Denies injuries, denies drugs. A&O x 3. Past Medical History Reviewed: Historical Data, Nursing Documentation Vital Signs: Last Vital Signs Temp 97.8 F 12/02/17 23:33 Pulse 64 12/02/17 23:33 Resp 16 12/02/17 23:33 BP 110/73 12/02/17 23:33 Pulse Ox 97 12/02/17 23:33 - Medical History PMH: Anxiety, Asthma, Back Problems (herniated disc), Bipolar Disorder, COPD, Depression, Chronic Pain (Sciatica) Denies: Diabetes, Hepatitis, HIV, HTN, Chronic Kidney Disease, Seizures, Sexually Transmitted Disease - Family History Family History: States: Unknown Family Hx - Immunization History Hx Tetanus Toxoid Vaccination: Yes (2 years ago as per patient) Hx Influenza Vaccination: Yes (05/2015) Hx Pneumococcal Vaccination: No - Home Medications Home Medications: Ambulatory Orders Medication Instructions Recorded Eye Patch 1 each MC DAILY #1 each 08/28/17 Naphazoline HCl/Pheniramine 1 - 2 ml OP TID #15 ml 08/28/17 [Visine-A 0.025%-0.3% 15 ml] Azithromycin [Zithromax] 250 mg PO QAM #1 pkg 11/28/17 - Allergies Allergies/Adverse Reactions: Allergies Allergy/AdvReac Type Severity Reaction Status Date / Time tramadol Allergy Intermediate RASH Verified 12/02/17 23:32 Review of Systems Review Of Systems: ROS cannot be obtained secondary to pt's inabilty to answer questions. Physical Exam - Reviewed Nursing Documentation Reviewed: Yes Vital Signs Reviewed: Yes - Physical Exam Appears: Positive for: Well (Intoxicated appearing), Non-toxic, No Acute Distress Head Exam: Positive for: ATRAUMATIC, NORMAL INSPECTION, NORMOCEPHALIC Skin: Positive for: Normal Color, Warm, DRY Eye Exam: Positive for: EOMI, Normal appearance, PERRL ENT: Positive for: Normal ENT Inspection Neck: Positive for: Normal, Painless ROM Cardiovascular/Chest: Positive for: Regular Rate, Rhythm Respiratory: Positive for: CNT, Normal Breath Sounds Gastrointestinal/Abdominal: Positive for: Normal Exam, Bowel Sounds, Soft Back: Positive for: Normal Inspection Extremity: Positive for: Normal ROM Neurologic/Psych: Positive for: Alert, animal science instructor II-XII, Oriented, Gait (normal gait) . Negative for: Motor/Sensory Deficits, Aphasia - ECG O2 Sat by Pulse Oximetry: 97 Medical Decision Making Medical Decision MakinPM A/P: Hx of ETOH abuse p/w intoxication -normal vitals, normal FS -no signs of trauma -no SI/HI -patient able to stand and walk with steady gait -patient requesting discharge, will send home. 4AM Patient consumed entire meal of [employer]. Now awake, alert, steady gait, will d/c home. Disposition - Clinical Impression Clinical Impression: Alcohol intoxication - Disposition Referrals: [facility] [Outside] Disposition: Routine/Home Disposition Time: 04:35 Condition: IMPROVED Instructions: Alcohol Abuse and Alcoholism (DC) Forms: [employer] (Kyrgyz)
[2017-12-03 11:57] VITALS: BP 110/73; PULSE 64; RESP 16; TEMP 97.8; O2SAT 97; BMI 23.3
== END 2017-12-03 06:17 | disposition home or self-care (01) ==
LOC: H.ER 23:20
DX: F10.129 Alcohol abuse with intoxication, unspecified (principal); F31.9 Bipolar disorder, unspecified; F41.9 Anxiety disorder, unspecified; G89.29 Other chronic pain

== ENCOUNTER 2017-12-04 23:44 | Emergency (ER) | payer SELFPAY ==
[2017-12-04 23:44] VITALS: BMI 23.3
[2017-12-04 23:52] VITALS: RESP 16
--- NOTE | 2017-12-05 02:12 | ED PDOC ---
HPI: Psych/Substance Abuse Time Seen by Provider: 12/05/17 00:32 Chief Complaint (Nursing): Alcohol Ingestion Chief Complaint (Provider): Alcohol Ingestion History Per: Patient, EMS Onset/Duration Of Symptoms: Mins (prior to arrival) Current Symptoms Are (Timing): Still Present Modifying Factor(s): Alcohol Additional Complaint(s): Rhina Ledezma is a 42 year old female who denies any past medical history, who was brought to the ER by EMS for evaluation of alcohol intoxication, s/p finding her wandering the streets [facility] prior to arrival. Patient is well known to the ER for a history of alcohol abuse and intoxication. Patient denies any injury or drug use. Of note, history limited due to patient being uncooperative. Patient does admit to alcohol ingestion today. Patient has no complaints at this time. PMD: none provided Past Medical History Reviewed: Historical Data, Nursing Documentation, Vital Signs Vital Signs: Last Vital Signs Temp 98.0 F 12/04/17 23:50 Pulse 70 12/04/17 23:50 Resp 16 12/04/17 23:50 BP 107/71 12/04/17 23:50 Pulse Ox 97 12/04/17 23:50 - Medical History PMH: Anxiety, Asthma, Back Problems (herniated disc), Bipolar Disorder, COPD, Depression, Chronic Pain (Sciatica) Denies: Diabetes, Hepatitis, HIV, HTN, Chronic Kidney Disease, Seizures, Sexually Transmitted Disease - Surgical History Surgical History: No Surg Hx - Family History Family History: States: Unknown Family Hx - Immunization History Hx Tetanus Toxoid Vaccination: Yes (2 years ago as per patient) Hx Influenza Vaccination: Yes (05/2015) Hx Pneumococcal Vaccination: No - Home Medications Home Medications: Ambulatory Orders Medication Instructions Recorded Eye Patch 1 each MC DAILY #1 each 08/28/17 Naphazoline HCl/Pheniramine 1 - 2 ml OP TID #15 ml 08/28/17 [Visine-A 0.025%-0.3% 15 ml] Azithromycin [Zithromax] 250 mg PO QAM #1 pkg 11/28/17 - Allergies Allergies/Adverse Reactions: Allergies Allergy/AdvReac Type Severity Reaction Status Date / Time tramadol Allergy Intermediate RASH Verified 12/02/17 23:32 Review of Systems ROS Statement: Except As Marked, All Systems Reviewed And Found Negative Review Of Systems: ROS cannot be obtained secondary to pt's inabilty to answer questions. (limited due to intoxication) Constitutional: Negative for: Other (injury and drug use) Physical Exam - Reviewed Nursing Documentation Reviewed: Yes Vital Signs Reviewed: Yes - Physical Exam Comments: GENERAL APPEARANCE: Patient is awake, alert, and in no acute distress. Noncooperative. SKIN: Warm, dry; (-) cyanosis HEAD: (-) scalp tenderness EYES: (+)bilateral conjunctival injection, (-) scleral icterus, (-) nystagmus. ENMT: Mucous membranes moist. Airway patent: (-) stridor. Uvula midline. NECK: Supple (-) tenderness, (-) stiffness CHEST AND RESPIRATORY: (-) rales, (-) rhonchi, (-) wheezes; breath sounds equal. Respirations even and nonlabored. ABDOMEN: Soft, (-) distention, (-) tenderness, (-) guarding. NEURO AND PSYCH: Mental status as above. Affect: Calm and cooperative. robot programmer: Intact. Pupils equal and reactive; EOMI; (-) facial asymmetry; tongue and uvula midline. - ECG O2 Sat by Pulse Oximetry: 97 (RA) Pulse Ox Interpretation: Normal Medical Decision Making Medical Decision Making: Time: 1:45 Impression: alcohol intoxication and abuse Plan: --Alcohol Serum --Glucose, POC 0345 Acchucheck: 107 Serum Alcohol: <10 On exam, patient AAOx3, in no acute distress. Lungs clear to auscultation, cardiac RRR, abdomen soft, non-tender, repeat neuro exam shows no focal findings. Ambulatory in ED with steady, unassisted gait. VSS. Diagnostic results d/w the patient in great detail. Diagnosis of homelessness, malingering d/w the patient. Based on history, exam and diagnostic results, plan will be for outpatient follow up. Patient instructed to follow-up with pmd / referral provided / the clinic in 1- 2 days without fail. Return to the emergency room at any time for any new or worsening symptoms. Patient states she fully agrees with and understands discharge instructions. States that she agrees with the plan and disposition. Verbalized and repeated discharge instructions and plan. I have given the patient opportunity to ask any additional questions. Scribe Attestation: Documented by Mya Trevizo acting as a scribe for Jacklyn Dahl MD Scribe Attestation: All medical record entries made by the Scribe were at my direction and personally dictated by me. I have reviewed the chart and agree that the record accurately reflects my personal performance of the history, physical exam, medical decision making, and the department course for this patient. I have also personally directed, reviewed, and agree with the discharge instructions and disposition. Disposition - Clinical Impression Clinical Impression: Alcohol abuse, Homelessness, Malingering - Patient ED Disposition Is Patient to be Admitted: No Counseled Patient/Family Regarding: Diagnosis, Need For Followup - Disposition Referrals: [facility] [Outside] Disposition: Routine/Home Disposition Time: 03:56 Condition: FAIR Instructions: Alcohol Abuse and Alcoholism (DC), Effects of Alcohol on Your Health Forms: [facility] (Romanian) Print Language: YAKUT - POA Present On Arrival: None Results - Lab Results Lab Results: 12/05/17 12/05/17 01:50 01:47 POC Glucose (mg/dL) 107 Alcohol, Quantitative < 10
[2017-12-05 05:14] VITALS: BP 131/82; PULSE 82; TEMP 98.7; O2SAT 98
== END 2017-12-05 05:00 | disposition home or self-care (01) ==
LOC: H.ER 23:44
DX: F10.129 Alcohol abuse with intoxication, unspecified (principal); F31.9 Bipolar disorder, unspecified; F41.9 Anxiety disorder, unspecified; G89.29 Other chronic pain; Z59.0 Homelessness
CPT/HCPCS: 82948; 99283; G0480

== ENCOUNTER 2017-12-05 21:26 | Emergency (ER) | payer SELFPAY ==
[2017-12-05 21:26] VITALS: BMI 23.3
--- NOTE | 2017-12-05 22:33 | ED PDOC ---
HPI: Psych/Substance Abuse Time Seen by Provider: 12/05/17 21:48 Chief Complaint (Nursing): Substance Abuse Chief Complaint (Provider): Possible Substance Abuse History Per: Patient History/Exam Limitations: no limitations Current Symptoms Are (Timing): Still Present Suicide/Self Injury Attempted (Context): None Modifying Factor(s): Other Additional Complaint(s): 42 year old male with a past medical history of substance abuse is brought into the emergency room by EMS for possible substance abuse. Past Medical History Reviewed: Historical Data, Nursing Documentation, Vital Signs Vital Signs: Last Vital Signs Temp 97.9 F 12/05/17 21:29 Pulse 82 12/05/17 21:29 Resp 16 12/05/17 21:29 BP 104/68 12/05/17 21:29 Pulse Ox 98 12/05/17 21:29 - Medical History PMH: Anxiety, Asthma, Back Problems (herniated disc), Bipolar Disorder, COPD, Depression, Chronic Pain (Sciatica) Denies: Diabetes, Hepatitis, HIV, HTN, Chronic Kidney Disease, Seizures, Sexually Transmitted Disease - Surgical History Surgical History: No Surg Hx - Family History Family History: States: Unknown Family Hx - Social History Alcohol: < 2 Drinks/Day - Immunization History Hx Tetanus Toxoid Vaccination: Yes (2 years ago as per patient) Hx Influenza Vaccination: Yes (05/2015) Hx Pneumococcal Vaccination: No - Home Medications Home Medications: Ambulatory Orders Medication Instructions Recorded Eye Patch 1 each MC DAILY #1 each 08/28/17 Naphazoline HCl/Pheniramine 1 - 2 ml OP TID #15 ml 08/28/17 [Visine-A 0.025%-0.3% 15 ml] Azithromycin [Zithromax] 250 mg PO QAM #1 pkg 11/28/17 - Allergies Allergies/Adverse Reactions: Allergies Allergy/AdvReac Type Severity Reaction Status Date / Time tramadol Allergy Intermediate RASH Verified 12/02/17 23:32 Review of Systems ROS Statement: Except As Marked, All Systems Reviewed And Found Negative Psych: Positive for: Other (Substance Abuse) Physical Exam - Reviewed Nursing Documentation Reviewed: Yes Vital Signs Reviewed: Yes - Physical Exam Appears: Positive for: Non-toxic, No Acute Distress Head Exam: Positive for: ATRAUMATIC, NORMAL INSPECTION, NORMOCEPHALIC Skin: Positive for: Normal Color, Warm, Dry. Negative for: Rash Eye Exam: Positive for: EOMI, PERRL. Negative for: Normal appearance (pin point ) ENT: Positive for: Normal ENT Inspection. Negative for: Nasal Congestion, Tonsillar Exudate, Tonsillar Swelling Neck: Positive for: Normal, Painless ROM, Supple Cardiovascular/Chest: Positive for: Regular Rate, Rhythm, Chest Non Tender. Negative for: Tachycardia Respiratory: Positive for: Normal Breath Sounds. Negative for: Rales, Rhonchi, Wheezing, Respiratory Distress Gastrointestinal/Abdominal: Positive for: Normal Exam, Bowel Sounds, Soft. Negative for: Tenderness, Mass, Guarding, Rebound Back: Positive for: Normal Inspection. Negative for: L CVA Tenderness, R CVA Tenderness Extremity: Positive for: Normal ROM. Negative for: Tenderness, Deformity, Swelling Neurologic/Psych: Positive for: Other (sleeping response to painful stimuli by withdrawing ; 5/5 strength on all extremities.) - ECG O2 Sat by Pulse Oximetry: 98 (RA) Pulse Ox Interpretation: Normal Medical Decision Making Medical Decision Makin Initial Impression 42 year old female presenting with alcohol intoxication Initial Plan: * Alcohol Serum * Accucheck * Reevaluation Documented by Kemi Painting acting as a scribe for Calvin Green MD. All medical record entries made by the Scribe were at my direction and personally dictated by me. I have reviewed the chart and agree that the record accurately reflects my personal performance of the history, physical exam, medical decision making, and the department course for this patient. I have also personally directed, reviewed, and agree with the discharge instructions and disposition. Disposition - Clinical Impression Clinical Impression: Substance abuse - Patient ED Disposition Is Patient to be Admitted: Transfer of Care - Disposition Disposition: Transfer of Care Disposition Time: 23:51 Condition: FAIR Forms: [employer] (Slovenian) Patient Signed Over To: Lea Montana
[2017-12-06 00:04] LABS: BARBITURATES, UR NEGATIVE (NEGATIVE); BENZODIAZEPINES, UR NEGATIVE (NEGATIVE); OPIATES, UR POSITIVE (NEGATIVE); PHENCYCLIDINE, UR NEGATIVE (NEGATIVE)
[2017-12-06 01:46] VITALS: BP 107/55; PULSE 75; RESP 18; TEMP 97; O2SAT 95
--- NOTE | 2017-12-06 04:18 | ED PDOC ---
- ECG O2 Sat by Pulse Oximetry: 95 Disposition - Clinical Impression Clinical Impression: Substance abuse - POA Present On Arrival: None - Disposition Referrals: [facility] [Outside] Disposition: Routine/Home Disposition Time: 05:00 Condition: IMPROVED Instructions: Drug Abuse and Drug Addiction (DC) Forms: [employer] (Bruneian)
== END 2017-12-06 06:00 | disposition home or self-care (01) ==
LOC: H.ER 21:26
DX: F10.129 Alcohol abuse with intoxication, unspecified (principal); J44.9 Chronic obstructive pulmonary disease, unspecified; Z86.59 Personal history of other mental and behavioral disorders
CPT/HCPCS: 82948; G0480

== ENCOUNTER 2017-12-11 01:01 | Emergency (ER) | payer SELFPAY ==
[2017-12-11 01:39] VITALS: BMI 27.4
--- NOTE | 2017-12-11 01:46 | ED PDOC ---
HPI: Psych/Substance Abuse Time Seen by Provider: 12/11/17 01:28 ED Caveat: Intoxicated History Per: Patient History/Exam Limitations: intoxication Onset/Duration Of Symptoms: Hrs Current Symptoms Are (Timing): Still Present Modifying Factor(s): Alcohol Additional Complaint(s): Patient well known to ER for alcohol intoxication p/w alcohol intoxication. States she was brought here for SI but she denies, states that she told [employer] that she wanted to be with her mom who is alive and lives in [place], and it was misinterpreted that she wanted to be in [place] with her mom. Patient states she feels fine, denies drug use. States her ears are clogged because of wax. Past Medical History Reviewed: Historical Data, Nursing Documentation, Vital Signs - Medical History PMH: Anxiety, Asthma, Back Problems (herniated disc), Bipolar Disorder, COPD, Depression, Chronic Pain (Sciatica) Denies: Diabetes, Hepatitis, HIV, HTN, Chronic Kidney Disease, Seizures, Sexually Transmitted Disease - Family History Family History: States: Unknown Family Hx - Immunization History Hx Tetanus Toxoid Vaccination: Yes (2 years ago as per patient) Hx Influenza Vaccination: Yes (05/2015) Hx Pneumococcal Vaccination: No - Home Medications Home Medications: Ambulatory Orders Medication Instructions Recorded Eye Patch 1 each MC DAILY #1 each 08/28/17 Naphazoline HCl/Pheniramine 1 - 2 ml OP TID #15 ml 08/28/17 [Visine-A 0.025%-0.3% 15 ml] Azithromycin [Zithromax] 250 mg PO QAM #1 pkg 11/28/17 Carbamide Peroxide [Debrox 15 Ml] 5 - 10 drop AU BID #1 bottle 12/11/17 - Allergies Allergies/Adverse Reactions: Allergies Allergy/AdvReac Type Severity Reaction Status Date / Time tramadol Allergy Intermediate RASH Verified 12/02/17 23:32 Review of Systems ROS Statement: Except As Marked, All Systems Reviewed And Found Negative Physical Exam - Reviewed Nursing Documentation Reviewed: Yes - Physical Exam Appears: Positive for: Well, Non-toxic, No Acute Distress Head Exam: Positive for: ATRAUMATIC, NORMAL INSPECTION, NORMOCEPHALIC Skin: Positive for: Normal Color, Warm, DRY Eye Exam: Positive for: EOMI, Normal appearance, PERRL ENT: Positive for: Other (bilateral cerumen impaction) Neck: Positive for: Normal, Painless ROM Cardiovascular/Chest: Positive for: Regular Rate, Rhythm Respiratory: Positive for: CNT, Normal Breath Sounds Gastrointestinal/Abdominal: Positive for: Normal Exam, Soft Back: Positive for: Normal Inspection Extremity: Positive for: Normal ROM Neurologic/Psych: Positive for: Alert, Oriented Medical Decision Making Medical Decision Making: Patient well known to ER for ETOH abuse p/w ETOH abuse -patient is not suicidal -alert and oriented x 3, steady gait -will prescribe debrox for cerumen impaction -will d/c home. Disposition - Clinical Impression Clinical Impression: Impacted cerumen, Alcohol dependence - Patient ED Disposition Is Patient to be Admitted: No - Disposition Referrals: [facility] [Outside] Disposition: Routine/Home Disposition Time: 01:49 Condition: GOOD Prescriptions: Carbamide Peroxide [Debrox 15 Ml] 5 - 10 drop AU BID #1 bottle Instructions: Alcohol Use - When Is Drinking a Problem?, Ear Wax Impaction
[2017-12-11 01:55] VITALS: BP 134/78; PULSE 74; RESP 16; TEMP 98; O2SAT 97
== END 2017-12-11 05:52 | disposition home or self-care (01) ==
LOC: H.ER 01:01
DX: F10.129 Alcohol abuse with intoxication, unspecified (principal)

== ENCOUNTER 2017-12-11 22:14 | Emergency (ER) | payer SELFPAY ==
[2017-12-11 22:14] VITALS: BMI 27.4
[2017-12-11 22:34] VITALS: BP 120/80; PULSE 78; RESP 18; TEMP 97.3; O2SAT 97
--- NOTE | 2017-12-11 23:32 | ED PDOC ---
HPI: Psych/Substance Abuse Time Seen by Provider: 12/11/17 22:34 Chief Complaint (Nursing): Alcohol Ingestion Chief Complaint (Provider): Alcohol Ingestion History Per: Patient History/Exam Limitations: no limitations Additional Complaint(s): 42 year old female presents to the emergency department after brought in for an evaluation of public intoxication. Patient has no current complaints, injuries, nausea, or vomiting. Past Medical History Reviewed: Historical Data, Nursing Documentation, Vital Signs Vital Signs: Last Vital Signs Temp 97.3 F L 12/11/17 22:31 Pulse 78 12/11/17 22:31 Resp 18 12/11/17 22:31 BP 120/80 12/11/17 22:31 Pulse Ox 97 12/11/17 22:31 - Medical History PMH: Anxiety, Asthma, Back Problems (herniated disc), Bipolar Disorder, COPD, Depression, Chronic Pain (Sciatica) Denies: Diabetes, Hepatitis, HIV, HTN, Chronic Kidney Disease, Seizures, Sexually Transmitted Disease - Family History Family History: States: Unknown Family Hx - Immunization History Hx Tetanus Toxoid Vaccination: Yes (2 years ago as per patient) Hx Influenza Vaccination: Yes (05/2015) Hx Pneumococcal Vaccination: No - Home Medications Home Medications: Ambulatory Orders Medication Instructions Recorded Eye Patch 1 each MC DAILY #1 each 08/28/17 Naphazoline HCl/Pheniramine 1 - 2 ml OP TID #15 ml 08/28/17 [Visine-A 0.025%-0.3% 15 ml] Azithromycin [Zithromax] 250 mg PO QAM #1 pkg 11/28/17 Carbamide Peroxide [Debrox 15 Ml] 5 - 10 drop AU BID #1 bottle 12/11/17 - Allergies Allergies/Adverse Reactions: Allergies Allergy/AdvReac Type Severity Reaction Status Date / Time tramadol Allergy Intermediate RASH Verified 12/11/17 22:31 Review of Systems ROS Statement: Except As Marked, All Systems Reviewed And Found Negative (As per HPI, otherwise negative) Constitutional: Negative for: Other (injuries) Gastrointestinal: Negative for: Nausea, Vomiting Physical Exam - Reviewed Nursing Documentation Reviewed: Yes Vital Signs Reviewed: Yes - Physical Exam Appears: Positive for: No Acute Distress Head Exam: Positive for: NORMAL INSPECTION Skin: Positive for: Normal Color, Warm, Dry Cardiovascular/Chest: Positive for: Regular Rate, Rhythm. Negative for: Murmur Gastrointestinal/Abdominal: Positive for: Normal Exam, Soft. Negative for: Tenderness Extremity: Positive for: Normal ROM. Negative for: Pedal Edema Neurologic/Psych: Positive for: Alert, Oriented (x3) - ECG O2 Sat by Pulse Oximetry: 97 (RA) Pulse Ox Interpretation: Normal Medical Decision Making Medical Decision Making: Time: 2233 Initial Impression: Alcohol intoxication Initial Plan: Time: 2329 --Patient is medically stable and will be discharge home. Scribe Attestation: Documented by Beverly Russo acting as a scribe for Samir Garcia MD. Scribe Attestation: All medical record entries made by the Scribe were at my direction and personally dictated by me. I have reviewed the chart and agree that the record accurately reflects my personal performance of the history, physical exam, medical decision making, and the department course for this patient. I have also personally directed, reviewed, and agree with the discharge instructions and disposition. Disposition - Clinical Impression Clinical Impression: Alcohol use - Disposition Disposition: Routine/Home Disposition Time: 23:00 Condition: STABLE Instructions: Alcohol Use - When Is Drinking a Problem? Forms: [employer] (Khmer)
== END 2017-12-11 23:37 | disposition home or self-care (01) ==
LOC: H.ER 22:14
DX: F10.129 Alcohol abuse with intoxication, unspecified (principal); F31.9 Bipolar disorder, unspecified; F41.9 Anxiety disorder, unspecified; G89.29 Other chronic pain; J44.9 Chronic obstructive pulmonary disease, unspecified

== ENCOUNTER 2017-12-13 23:12 | Emergency (ER) | payer SELFPAY ==
[2017-12-13 23:14] VITALS: BMI 21.6
[2017-12-13 23:17] VITALS: BP 108/74; PULSE 74; RESP 16; TEMP 97.4; O2SAT 97
--- NOTE | 2017-12-13 23:28 | ED PDOC ---
HPI: General Adult Time Seen by Provider: 12/13/17 23:16 Chief Complaint (Nursing): ENT Problem Chief Complaint (Provider): Denies complaint History Per: Patient History/Exam Limitations: no limitations Have you had recent travel within the past 21 days to any of the following countries: [place], [place], [place] or [place]?: No Additional Complaint(s): Pt states she was sleeping in the hallway of an office building. PT states police woke her and told her she was drunk and had to leave. Pt states that did drink earlier in the night but was just trying to sleep for the night. Pt states she has been sleeping there for 2 weeks. Denies complaints. Past Medical History Reviewed: Historical Data, Nursing Documentation, Vital Signs Vital Signs: Last Vital Signs Temp 97.4 F L 12/13/17 23:14 Pulse 74 12/13/17 23:14 Resp 16 12/13/17 23:14 BP 108/74 12/13/17 23:14 Pulse Ox 97 12/13/17 23:28 - Medical History PMH: Anxiety, Asthma, Back Problems (herniated disc), Bipolar Disorder, COPD, Depression, Chronic Pain (Sciatica) Denies: Diabetes, Hepatitis, HIV, HTN, Chronic Kidney Disease, Seizures, Sexually Transmitted Disease - Surgical History Surgical History: No Surg Hx - Family History Family History: States: Unknown Family Hx - Living Arrangements Living Arrangements: With Family - Immunization History Hx Tetanus Toxoid Vaccination: Yes (2 years ago as per patient) Hx Influenza Vaccination: Yes (05/2015) Hx Pneumococcal Vaccination: No - Home Medications Home Medications: Ambulatory Orders Medication Instructions Recorded Eye Patch 1 each MC DAILY #1 each 08/28/17 Naphazoline HCl/Pheniramine 1 - 2 ml OP TID #15 ml 08/28/17 [Visine-A 0.025%-0.3% 15 ml] Azithromycin [Zithromax] 250 mg PO QAM #1 pkg 11/28/17 Carbamide Peroxide [Debrox 15 Ml] 5 - 10 drop AU BID #1 bottle 12/11/17 - Allergies Allergies/Adverse Reactions: Allergies Allergy/AdvReac Type Severity Reaction Status Date / Time tramadol Allergy Intermediate RASH Verified 12/13/17 23:14 Review of Systems ROS Statement: Except As Marked, All Systems Reviewed And Found Negative Constitutional: Negative for: Fever, Chills Psych: Negative for: Anxiety, Depression, Suicidal ideation Physical Exam - Reviewed Nursing Documentation Reviewed: Yes Vital Signs Reviewed: Yes - Physical Exam Appears: Positive for: Well, Non-toxic, No Acute Distress Head Exam: Positive for: ATRAUMATIC, NORMAL INSPECTION, NORMOCEPHALIC Skin: Positive for: Normal Color, Warm, DRY Eye Exam: Positive for: Normal appearance ENT: Positive for: Normal ENT Inspection Neck: Positive for: Normal, Painless ROM Cardiovascular/Chest: Positive for: Regular Rate, Rhythm Respiratory: Positive for: CNT, Normal Breath Sounds Back: Positive for: Normal Inspection Extremity: Positive for: Normal ROM Neurologic/Psych: Positive for: Alert, Oriented - ECG O2 Sat by Pulse Oximetry: 97 Disposition - Clinical Impression Clinical Impression: Alcohol abuse - Patient ED Disposition Is Patient to be Admitted: No Counseled Patient/Family Regarding: Diagnosis, Need For Followup - Disposition Disposition: Routine/Home Disposition Time: 23:28 Condition: GOOD Instructions: Effects of Alcohol on Your Health Forms: [facility] (Khmer)
== END 2017-12-13 23:52 | disposition home or self-care (01) ==
LOC: H.ER 23:12
DX: F10.10 Alcohol abuse, uncomplicated (principal); Z86.59 Personal history of other mental and behavioral disorders; G89.29 Other chronic pain; J44.9 Chronic obstructive pulmonary disease, unspecified

== ENCOUNTER 2018-01-09 22:14 | Emergency (ER) | payer OTHER ==
[2018-01-09 22:14] VITALS: BMI 21.6
[2018-01-09 22:26] VITALS: RESP 18; O2SAT 95
--- NOTE | 2018-01-09 22:38 | ED PDOC ---
HPI: Psych/Substance Abuse Time Seen by Provider: 01/09/18 22:22 Chief Complaint (Nursing): Alcohol Ingestion Chief Complaint (Provider): Alcohol abuse History Per: Patient History/Exam Limitations: no limitations Onset/Duration Of Symptoms: Days Additional Complaint(s): Brought in by [facility] - Denies complaint. Cooperative in Er. Ask for sandwich. Past Medical History Reviewed: Historical Data, Nursing Documentation, Vital Signs Vital Signs: Last Vital Signs Temp 96.8 F L 01/09/18 22:23 Pulse 84 01/09/18 22:23 Resp 18 01/09/18 22:23 BP Pulse Ox 95 01/09/18 22:23 - Medical History PMH: Anxiety, Asthma, Back Problems (herniated disc), Bipolar Disorder, COPD, Depression, Chronic Pain (Sciatica) Denies: Diabetes, Hepatitis, HIV, HTN, Chronic Kidney Disease, Seizures, Sexually Transmitted Disease - Family History Family History: States: Unknown Family Hx - Living Arrangements Living Arrangements: With Family - Social History Current smoker - smoking cessation education provided: No Alcohol: Occasional - Immunization History Hx Tetanus Toxoid Vaccination: Yes (2 years ago as per patient) Hx Influenza Vaccination: Yes (05/2015) Hx Pneumococcal Vaccination: No - Home Medications Home Medications: Ambulatory Orders Medication Instructions Recorded Eye Patch 1 each MC DAILY #1 each 08/28/17 Naphazoline HCl/Pheniramine 1 - 2 ml OP TID #15 ml 08/28/17 [Visine-A 0.025%-0.3% 15 ml] Azithromycin [Zithromax] 250 mg PO QAM #1 pkg 11/28/17 Carbamide Peroxide [Debrox 15 Ml] 5 - 10 drop AU BID #1 bottle 12/11/17 - Allergies Allergies/Adverse Reactions: Allergies Allergy/AdvReac Type Severity Reaction Status Date / Time tramadol Allergy Intermediate RASH Verified 01/09/18 22:22 Review of Systems ROS Statement: Except As Marked, All Systems Reviewed And Found Negative Constitutional: Negative for: Fever, Chills Neurological: Negative for: Weakness, Confusion, Seizures, Altered Mental Status Physical Exam - Reviewed Nursing Documentation Reviewed: Yes Vital Signs Reviewed: Yes - Physical Exam Appears: Positive for: Well, Non-toxic, No Acute Distress Head Exam: Positive for: ATRAUMATIC, NORMAL INSPECTION, NORMOCEPHALIC Skin: Positive for: Normal Color, Warm, DRY Eye Exam: Positive for: Normal appearance ENT: Positive for: Normal ENT Inspection Neck: Positive for: Normal, Painless ROM Cardiovascular/Chest: Positive for: Regular Rate, Rhythm Respiratory: Positive for: CNT, Normal Breath Sounds Back: Positive for: Normal Inspection Extremity: Positive for: Normal ROM Neurologic/Psych: Positive for: Alert, Oriented - ECG O2 Sat by Pulse Oximetry: 95 Disposition - Clinical Impression Clinical Impression: Acute alcohol abuse - Disposition Disposition: Routine/Home Disposition Time: 22:37 Condition: STABLE Instructions: Alcohol Abuse and Alcoholism (DC)
[2018-01-09 22:42] VITALS: BP 105/64; PULSE 79; TEMP 97
== END 2018-01-09 22:40 | disposition home or self-care (01) ==
LOC: H.ER 22:14
DX: F10.10 Alcohol abuse, uncomplicated (principal); F31.9 Bipolar disorder, unspecified; F41.9 Anxiety disorder, unspecified; G89.29 Other chronic pain; J44.9 Chronic obstructive pulmonary disease, unspecified

== ENCOUNTER 2018-02-22 22:08 | Emergency (ER) | payer OTHER ==
[2018-02-22 22:09] VITALS: BMI 21.6
[2018-02-22 22:11] VITALS: BP 133/74; PULSE 66; RESP 16; TEMP 97.8; O2SAT 99
== END 2018-02-22 22:30 | disposition left against medical advice (07) ==
LOC: H.ER 22:08
DX: Z02.89 Encounter for other administrative examinations (principal)

== ENCOUNTER 2018-03-07 17:30 | Emergency (ER) | payer MEDICAID, OTHER ==
[2018-03-07 17:31] VITALS: BMI 21.6
[2018-03-07 17:39] VITALS: BP 130/72; PULSE 96; RESP 18; TEMP 98; O2SAT 96
--- NOTE | 2018-03-07 17:53 | ED PDOC ---
HPI: General Adult Time Seen by Provider: 03/07/18 17:40 Chief Complaint (Nursing): Medical Clearance Chief Complaint (Provider): Test History Per: Patient History/Exam Limitations: no limitations Additional Complaint(s): Patient is a 42 y/o nondomicile female who presents to the ED requesting a test. She reports that she hasn't had her period since 01/05/18. She denies any other medical or physical complaints at present. PMD: none Past Medical History Reviewed: Historical Data, Nursing Documentation, Vital Signs Vital Signs: Last Vital Signs Temp 98 F 03/07/18 17:36 Pulse 96 H 03/07/18 17:36 Resp 18 03/07/18 17:36 BP 130/72 03/07/18 17:36 Pulse Ox 96 03/07/18 19:48 - Medical History PMH: Anxiety, Asthma, Back Problems (herniated disc), Bipolar Disorder, COPD, Depression, Chronic Pain (Sciatica) - Surgical History Surgical History: No Surg Hx - Family History Family History: States: Unknown Family Hx - Social History Current smoker - smoking cessation education provided: No Alcohol: > 2 Drinks/Day - Immunization History Hx Tetanus Toxoid Vaccination: Yes (2 years ago as per patient) - Home Medications Home Medications: Ambulatory Orders Medication Instructions Recorded Eye Patch 1 each MC DAILY #1 each 08/28/17 Naphazoline HCl/Pheniramine 1 - 2 ml OP TID #15 ml 08/28/17 [Visine-A 0.025%-0.3% 15 ml] Azithromycin [Zithromax] 250 mg PO QAM #1 pkg 11/28/17 Carbamide Peroxide [Debrox 15 Ml] 5 - 10 drop AU BID #1 bottle 12/11/17 - Allergies Allergies/Adverse Reactions: Allergies Allergy/AdvReac Type Severity Reaction Status Date / Time tramadol Allergy Intermediate RASH Verified 02/22/18 22:10 Review of Systems ROS Statement: Except As Marked, All Systems Reviewed And Found Negative Physical Exam - Reviewed Nursing Documentation Reviewed: Yes Vital Signs Reviewed: Yes - Physical Exam Comments: GENERAL APPEARANCE: Patient is awake, alert, oriented x 3, in no distress. Resting comfortably. SKIN: Warm, dry; (-) cyanosis. ENMT: Mucous membranes moist. NECK: Supple, FROM CHEST AND RESPIRATORY: (-) rales, (-) rhonchi, (-) wheezes; breath sounds equal bilaterally. Speaking in full sentences, respirations even and nonlabored. HEART AND CARDIOVASCULAR: (-) irregularity; (-) murmur, (-) gallop. ABDOMEN AND GI: (-) distention. Bowel sounds active x4; (-) guarding, (-) rebound, (-) CVA tenderness. NEURO AND PSYCH: Mental status as above; (-) focal findings. - Laboratory Results Urine POC: Negative - ECG O2 Sat by Pulse Oximetry: 96 (RA) Pulse Ox Interpretation: Normal Medical Decision Making Medical Decision Making: Time: 17:36 Initial Impression: test Initial plan: --urine --re-evaluation 17:46 Urine test negative. On exam, patient remains AAOx3, in no acute distress. Neck is supple, lungs CTA , cardiac RRR, abdomen is soft and non-tender, neuro exam shows no focal findings. VSS, stable for discharge. Diagnostic results d/w the patient in great detail. Dx of concern for , test d/w the patient. Based on history, exam and diagnostic results plan will be for discharge and outpatient follow up at clinic. Advised to follow up with primary care physician/clinic in 1-2 days without fail. Return to the emergency room at any time for any new or worsening symptoms. Patient states she fully agrees with and understands discharge instructions. States that she agrees with the plan and disposition. Verbalized and repeated discharge instructions and plan. I have given the patient opportunity to ask any additional questions. Scribe Attestation: Documented by Rehan Worthington, acting as a scribe for Jacklyn Dejesus PA-C Provider Scribe Attestation: All medical record entries made by the Scribe were at my direction and personally dictated by me. I have reviewed the chart and agree that the record accurately reflects my personal performance of the history, physical exam, medical decision making, and the department course for this patient. I have also personally directed, reviewed, and agree with the discharge instructions and disposition. Disposition - Clinical Impression Clinical Impression: test negative - Patient ED Disposition Is Patient to be Admitted: No Counseled Patient/Family Regarding: Studies Performed, Diagnosis, Need For Followup - Disposition [facility] Disposition: Routine/Home Disposition Time: 17:47 Condition: STABLE Additional Instructions: FOLLOW UP WITH CLINIC NEEDED. RETURN TO ED WITH ANY NEW OR WORSENING SYMPTOMS. Instructions: Tests, General (DC) Forms: [facility] (Samoan) Print Language: FRENCH - POA Present On Arrival: None
== END 2018-03-07 18:07 | disposition home or self-care (01) ==
LOC: H.ER 17:30
DX: Z32.02 Encounter for pregnancy test, result negative (principal); F31.9 Bipolar disorder, unspecified; F41.9 Anxiety disorder, unspecified; G89.29 Other chronic pain

== ENCOUNTER 2018-03-08 19:51 | Emergency (ER) | payer MEDICAID, OTHER ==
[2018-03-08 19:51] VITALS: BMI 21.6
[2018-03-08 19:55] VITALS: BP 125/74; PULSE 73; RESP 18; TEMP 98.2; O2SAT 97
--- NOTE | 2018-03-08 20:06 | ED PDOC ---
HPI: General Adult Time Seen by Provider: 03/08/18 19:58 Chief Complaint (Nursing): Medical Clearance Chief Complaint (Provider): clearance History Per: Patient Additional Complaint(s): 42 year old female presents for medical and psychiatric clearance. Patient is currently under arrest. She offers no acute medical complaints. She admits to alcohol and heroin use today. She denies IV use but states that she snorts heroin. PMD: none Past Medical History Reviewed: Historical Data, Nursing Documentation, Vital Signs Vital Signs: Last Vital Signs Temp 98.2 F 03/08/18 19:53 Pulse 73 03/08/18 19:53 Resp 18 03/08/18 19:53 BP 125/74 03/08/18 19:53 Pulse Ox 97 03/08/18 20:05 - Medical History PMH: Anxiety, Asthma, Back Problems (herniated disc), Bipolar Disorder, COPD, Depression, Chronic Pain (Sciatica) - Family History Family History: States: No Known Family Hx - Living Arrangements Living Arrangements: Other (non-domiciled) - Social History Alcohol: > 2 Drinks/Day Drugs: Opiates (snorts heroin) - Immunization History Hx Tetanus Toxoid Vaccination: Yes (2 years ago as per patient) - Home Medications Home Medications: Ambulatory Orders Medication Instructions Recorded Eye Patch 1 each MC DAILY #1 each 08/28/17 Naphazoline HCl/Pheniramine 1 - 2 ml OP TID #15 ml 08/28/17 [Visine-A 0.025%-0.3% 15 ml] Azithromycin [Zithromax] 250 mg PO QAM #1 pkg 11/28/17 Carbamide Peroxide [Debrox 15 Ml] 5 - 10 drop AU BID #1 bottle 12/11/17 - Allergies Allergies/Adverse Reactions: Allergies Allergy/AdvReac Type Severity Reaction Status Date / Time tramadol Allergy Intermediate RASH Verified 03/08/18 19:52 Review of Systems ROS Statement: Except As Marked, All Systems Reviewed And Found Negative Psych: Positive for: Other (etoh and heroin abuse). Negative for: Suicidal ideation Physical Exam - Reviewed Nursing Documentation Reviewed: Yes Vital Signs Reviewed: Yes - Physical Exam Appears: Positive for: Well, Non-toxic, No Acute Distress Skin: Positive for: Normal Color. Negative for: Rash Eye Exam: Positive for: Normal appearance Cardiovascular/Chest: Positive for: Regular Rate, Rhythm Respiratory: Positive for: Normal Breath Sounds. Negative for: Wheezing, Respiratory Distress Extremity: Positive for: Normal ROM Neurologic/Psych: Positive for: Alert, Oriented - ECG O2 Sat by Pulse Oximetry: 97 Pulse Ox Interpretation: Normal Medical Decision Making Medical Decision Makin year female here for medical and psychiatric clearance, currently under arrest. Plan: Crisis eval As per crisis counselor and psychiatrist manager infusion Dr. Cabezas, patient does not meet criteria for admission and is stable for discharge. Patient is medically and psychiatrically stable for incarceration. Disposition - Clinical Impression Clinical Impression: Substance abuse - Disposition Referrals: [facility] [Outside] Disposition: Discharged/Transfer to Law Enforcement Disposition Time: 21:34 Condition: STABLE Additional Instructions: Patient is medically and psychiatrically stable for incarceration. Instructions: General (DC), Drug Abuse and Drug Addiction (DC) Forms: [employer] [facility] (Yi)
== END 2018-03-08 22:32 | disposition home or self-care (01) ==
LOC: H.ER 19:51
DX: F31.9 Bipolar disorder, unspecified; F41.9 Anxiety disorder, unspecified; G89.29 Other chronic pain; J44.9 Chronic obstructive pulmonary disease, unspecified

== ENCOUNTER 2018-04-23 18:22 | Emergency (ER) | payer MEDICAID ==
[2018-04-23 18:23] VITALS: BMI 20.7
[2018-04-23 18:31] VITALS: RESP 18; O2SAT 96
[2018-04-23] MEDS ORDERED: Sodium Chloride 0.9% 1,000 ML IV STA (19:04)
--- NOTE | 2018-04-23 19:07 | ED PDOC ---
HPI: Psych/Substance Abuse Time Seen by Provider: 04/23/18 18:30 Chief Complaint (Nursing): Alcohol Ingestion Chief Complaint (Provider): ETOH History Per: Patient Additional Complaint(s): 42 year old female, well known to this ED, presents to the ED for evaluation after [place] Patient admitted to EMS that she was drinking tonight. Offers no medical complaints. PMD: none provided Past Medical History Reviewed: Historical Data, Nursing Documentation, Vital Signs Vital Signs: Last Vital Signs Temp 99.3 F 04/23/18 18:28 Pulse 90 04/23/18 18:28 Resp 18 04/23/18 18:28 BP 93/57 L 04/23/18 18:28 Pulse Ox 96 04/23/18 18:28 - Medical History PMH: Anxiety, Asthma, Back Problems (herniated disc), Bipolar Disorder, COPD, Depression, Chronic Pain (Sciatica) Denies: Diabetes, Hepatitis, HIV, HTN, Chronic Kidney Disease, Seizures, Sexually Transmitted Disease - Family History Family History: States: Unknown Family Hx - Living Arrangements Living Arrangements: Other - Social History Current smoker - smoking cessation education provided: No Alcohol: > 2 Drinks/Day Drugs: Opiates - Immunization History Hx Tetanus Toxoid Vaccination: Yes (2 years ago as per patient) Hx Influenza Vaccination: Yes (05/2015) Hx Pneumococcal Vaccination: No - Allergies Allergies/Adverse Reactions: Allergies Allergy/AdvReac Type Severity Reaction Status Date / Time tramadol Allergy Intermediate RASH Verified 03/08/18 19:52 Review of Systems ROS Statement: Except As Marked, All Systems Reviewed And Found Negative Physical Exam - Reviewed Nursing Documentation Reviewed: Yes Vital Signs Reviewed: Yes - Physical Exam Appears: Positive for: Well, Non-toxic, No Acute Distress Head Exam: Positive for: ATRAUMATIC, NORMAL INSPECTION, NORMOCEPHALIC Skin: Positive for: Normal Color, Warm, DRY Eye Exam: Positive for: EOMI, Normal appearance, PERRL ENT: Positive for: Normal ENT Inspection Neck: Positive for: Normal, Painless ROM Cardiovascular/Chest: Positive for: Regular Rate, Rhythm Respiratory: Positive for: CNT, Normal Breath Sounds Gastrointestinal/Abdominal: Positive for: Normal Exam, Soft Back: Positive for: Normal Inspection Extremity: Positive for: Normal ROM Neurologic/Psych: Positive for: Alert, Oriented - ECG O2 Sat by Pulse Oximetry: 96 Medical Decision Making Medical Decision Making: FS: 113 Pt placed on medical reception specialist Case endorsed to KRYSTINA Dejesus at 2000 pending clinical sobriety Disposition - Clinical Impression Clinical Impression: Alcohol ingestion - Patient ED Disposition Is Patient to be Admitted: Transfer of Care - Disposition Disposition: Transfer of Care Disposition Time: 19:09 Condition: STABLE Forms: [facility] (Peruvian)
--- NOTE | 2018-04-23 20:25 | ED PDOC ---
- ECG O2 Sat by Pulse Oximetry: 96 (RA) Pulse Ox Interpretation: Normal Medical Decision Making Medical Decision Making: Case endorsed to repairer typewriter, Oleg FLAHERTY, at 1999 due to shift change. Patient pending re-evaluation, clinical sobriety, and further disposition. Pertinent details reviewed. Accucheck: 113 2100 Patient sleeping comfortably on re-evaluation. 2210 On re-evaluation, patient reports improvement of symptoms. On exam, patient now AAOx3, in no acute distress. Lungs clear to auscultation, cardiac RRR, abdomen soft, non-tender, repeat neuro exam shows no focal findings. Gait steady in ED without assistance. Patient requesting discharge at this time. VSS, stable for discharge. Lab/Diagnostic results d/w the patient in great detail. Diagnosis of alcohol intoxication d/w the patient. Patient was observed in ED for 3+ hours with no evidence of neurological deterioration. Based on history, exam and diagnostic results, plan will be for outpatient follow up. Patient instructed to follow-up with pmd / referral provided / the clinic in 1- 2 days without fail. Return to the emergency room at any time for any new or worsening symptoms. Patient states she fully agrees with and understands discharge instructions. States that she agrees with the plan and disposition. Verbalized and repeated discharge instructions and plan. I have given the patient opportunity to ask any additional questions. Disposition Counseled Patient/Family Regarding: Studies Performed, Diagnosis, Need For Followup - Clinical Impression Clinical Impression: Alcohol ingestion - POA Present On Arrival: None - Disposition Referrals: [facility] [Outside] Disposition: Routine/Home Disposition Time: 22:14 Condition: STABLE Additional Instructions: The emergency medical care you received today was directed towards the acute presenting symptoms. If you were prescribed any medication, please fill it and give as directed. It may take several days for your symptoms to resolve. Return to the Emergency Department at any time if symptoms worsen, do not improve, or if any other problems arise. Please contact your doctor in 2 days for re-evaluation and follow up / or call one of the physicians/clinics you have been referred to that are listed on the Patient Visit Information form that is included in your discharge packet. Bring any paperwork you were given at discharge with you along with any medications to your follow up visit. Our treatment cannot replace ongoing medical care by a primary care provider (PCP) outside of the emergency department. Instructions: Alcohol Abuse and Alcoholism (DC), Effects of Alcohol on Your Health Forms: [facility] (Arabic) Print Language: HAITIAN
[2018-04-23 22:26] VITALS: BP 108/62; PULSE 88; TEMP 98.8
== END 2018-04-23 22:24 | disposition home or self-care (01) ==
LOC: H.ER 18:22
DX: F10.10 Alcohol abuse, uncomplicated (principal)

== ENCOUNTER 2018-05-10 03:57 | Emergency (ER) | payer MEDICAID ==
[2018-05-10 03:57] VITALS: BMI 20.7
[2018-05-10 04:07] VITALS: BP 128/82; PULSE 89; RESP 16; TEMP 98.6; O2SAT 99
--- NOTE | 2018-05-10 04:19 | ED PDOC ---
HPI: Dental Pain/Injury Time Seen by Provider: 05/10/18 04:08 Chief Complaint (Nursing): Dental Pain Chief Complaint (Provider): left upper toothache History Per: Patient History/Exam Limitations: no limitations Onset/Duration Of Symptoms: Days (1) Current Symptoms Are (Timing): Still Present Dental: 1 - pain Additional Complaint(s): 42 y/o female presents for evaluation of left upper tooth pain x 1 day. Patient states she is also really "friggin drunk", and needs a place to rest for a little while. Denies fever, nausea/vomiting, facial pain/swelling, difficulty speaking/swallowing. Past Medical History Reviewed: Historical Data, Nursing Documentation, Vital Signs Vital Signs: Last Vital Signs Temp 98.6 F 05/10/18 04:05 Pulse 89 05/10/18 04:05 Resp 16 05/10/18 04:05 BP 128/82 05/10/18 04:05 Pulse Ox 99 05/10/18 04:05 - Medical History PMH: Anxiety, Asthma, Back Problems (herniated disc), Bipolar Disorder, COPD, Depression, Chronic Pain (Sciatica) Denies: Diabetes, Hepatitis, HIV, HTN, Chronic Kidney Disease, Seizures, Sexually Transmitted Disease - Family History Family History: States: Unknown Family Hx - Immunization History Hx Tetanus Toxoid Vaccination: Yes (2 years ago as per patient) Hx Influenza Vaccination: Yes (05/2015) Hx Pneumococcal Vaccination: No - Home Medications Home Medications: Ambulatory Orders Medication Instructions Recorded Amoxicillin 500 mg PO Q12 #14 tablet 05/10/18 Naproxen [Naprosyn] 500 mg PO Q12 PRN #20 tablet 05/10/18 - Allergies Allergies/Adverse Reactions: Allergies Allergy/AdvReac Type Severity Reaction Status Date / Time tramadol Allergy Intermediate RASH Verified 05/10/18 04:07 Review of Systems ROS Statement: Except As Marked, All Systems Reviewed And Found Negative ENT: Positive for: Mouth Pain Physical Exam - Reviewed Nursing Documentation Reviewed: Yes Vital Signs Reviewed: Yes - Physical Exam Appears: Positive for: Well, Non-toxic, No Acute Distress (sleeping) Head Exam: Positive for: ATRAUMATIC, NORMAL INSPECTION, NORMOCEPHALIC Skin: Positive for: Normal Color Eye Exam: Positive for: Normal appearance ENT: Positive for: Other (multiple dental caries. Tenderness upon palpation left upper back molar with surrounding gingival tenderness; no abscess formation or facial erythema/edema noted) Cardiovascular/Chest: Positive for: Regular Rate, Rhythm Respiratory: Positive for: Normal Breath Sounds Extremity: Positive for: Normal ROM Neurologic/Psych: Positive for: Alert, Oriented (x3) - ECG O2 Sat by Pulse Oximetry: 99 - Progress ED Course And Treament: accucheck 6:00 Patient awake, alert, oriented x3. Ambulating steady gait Rx Amoxicillin, Naproxen provided Advised dental follow up Return precautions given Disposition - Clinical Impression Clinical Impression: Pain, dental, Alcohol abuse with intoxication - Patient ED Disposition Is Patient to be Admitted: No Counseled Patient/Family Regarding: Diagnosis, Need For Followup, Rx Given - Disposition Disposition: Routine/Home Disposition Time: 05:52 Condition: STABLE Prescriptions: Amoxicillin 500 mg PO Q12 #14 tablet Naproxen [Naprosyn] 500 mg PO Q12 PRN #20 tablet PRN Reason: Pain, Moderate (4-7) Instructions: Dental Pain, Alcohol Abuse and Alcoholism (DC) Forms: [employer] [facility] (Danish)
== END 2018-05-10 06:38 | disposition home or self-care (01) ==
LOC: H.ER 03:57
DX: F10.129 Alcohol abuse with intoxication, unspecified (principal); K08.89 Other specified disorders of teeth and supporting structures; F31.9 Bipolar disorder, unspecified; F41.9 Anxiety disorder, unspecified; G89.29 Other chronic pain

== ENCOUNTER 2018-05-18 01:08 | Emergency (ER) | payer MEDICAID ==
[2018-05-18 01:09] VITALS: BMI 20.7
[2018-05-18 01:17] VITALS: RESP 18
--- NOTE | 2018-05-18 01:59 | ED PDOC ---
HPI: CCC, URI, Sore Throat Time Seen by Provider: 05/18/18 01:28 Chief Complaint (Nursing): ENT Problem Chief Complaint (Provider): throat pain History Per: Patient History/Exam Limitations: no limitations Onset/Duration Of Symptoms: Days (2) Current Symptoms Are (Timing): Still Present Location Of Pain: Ear(s), Throat Additional Complaint(s): 42 y/o female presents for evaluation of throat pain x 2 days. Patient also reports left ear feels "clogged". Denies fever, nausea/vomiting, drainage from ear, cough, congestion. Patient admits to drinking tonight; states she feels "tipsy" and would like a place to rest for a while. Past Medical History Reviewed: Historical Data, Nursing Documentation, Vital Signs Vital Signs: Last Vital Signs Temp 98.2 F 05/18/18 05:52 Pulse 76 05/18/18 05:52 Resp 18 05/18/18 05:52 BP 105/63 05/18/18 05:52 Pulse Ox 97 05/18/18 05:52 - Medical History PMH: Anxiety, Asthma, Back Problems (herniated disc), Bipolar Disorder, COPD, Depression, Chronic Pain (Sciatica) Denies: Diabetes, Hepatitis, HIV, HTN, Chronic Kidney Disease, Seizures, Sexually Transmitted Disease - Family History Family History: States: Unknown Family Hx - Immunization History Hx Tetanus Toxoid Vaccination: Yes (2 years ago as per patient) Hx Influenza Vaccination: Yes (05/2015) Hx Pneumococcal Vaccination: No - Home Medications Home Medications: Ambulatory Orders Medication Instructions Recorded Amoxicillin 500 mg PO Q12 #14 tablet 05/10/18 Naproxen [Naprosyn] 500 mg PO Q12 PRN #20 tablet 05/10/18 Carbamide Peroxide [Debrox Ear 5 drop BID #1 bottle 05/18/18 Drops] - Allergies Allergies/Adverse Reactions: Allergies Allergy/AdvReac Type Severity Reaction Status Date / Time tramadol Allergy Intermediate RASH Verified 05/18/18 01:14 Review of Systems ROS Statement: Except As Marked, All Systems Reviewed And Found Negative ENT: Positive for: Ear Pain (left), Throat Pain Physical Exam - Reviewed Nursing Documentation Reviewed: Yes Vital Signs Reviewed: Yes - Physical Exam Appears: Positive for: Well, Non-toxic, No Acute Distress (sleeping) Head Exam: Positive for: ATRAUMATIC, NORMAL INSPECTION, NORMOCEPHALIC Skin: Positive for: Normal Color Eye Exam: Positive for: Normal appearance ENT: Positive for: TM Is/Are (cerumen in left EAC. No tragus, mastoid tenderness b/l), Pharyngeal Erythema. Negative for: Tonsillar Exudate, Tonsillar Swelling Neck: Positive for: Normal, Painless ROM Cardiovascular/Chest: Positive for: Regular Rate, Rhythm Respiratory: Positive for: Normal Breath Sounds Gastrointestinal/Abdominal: Positive for: Normal Exam Extremity: Positive for: Normal ROM Neurologic/Psych: Positive for: Alert, Oriented (3) - ECG O2 Sat by Pulse Oximetry: 94 - Progress ED Course And Treament: accucheck, rapid strep 3:00 Patient sleeping; no distress 4:30 Patient sleeping; no distress 6:00 patient awake, alert, oriented x3. Ambulating steady gait Patient educated on findings, discharged with rx Debrox Advised tylenol/ibuprofen PRN pain Follow up PMD 2-3 days Return precautions given Patient demonstrates full understanding of discharge instructions Patient requires no further intervention in the ED and is stable for discharge at this time Disposition - Clinical Impression Clinical Impression: Sore throat, Impacted cerumen, left ear, Alcohol abuse with intoxication Counseled Patient/Family Regarding: Studies Performed, Diagnosis, Need For Followup, Rx Given - Disposition Referrals: [facility] [Outside] Disposition: Routine/Home Disposition Time: 06:00 Condition: STABLE Prescriptions: Carbamide Peroxide [Debrox Ear Drops] 5 drop BID #1 bottle Instructions: Sore Throat in Adults, Ear Wax Impaction, Alcohol Abuse and Alcoholism (DC)
[2018-05-18 05:58] VITALS: BP 105/63; PULSE 76; TEMP 98.2
[2018-05-18 20:23] VITALS: O2SAT 94
== END 2018-05-18 06:04 | disposition home or self-care (01) ==
LOC: H.ER 01:08
DX: F10.129 Alcohol abuse with intoxication, unspecified (principal); J02.9 Acute pharyngitis, unspecified; H61.22 Impacted cerumen, left ear

== ENCOUNTER 2018-05-19 21:00 | Emergency (ER) | payer MEDICAID ==
[2018-05-19 21:05] VITALS: BMI 22.4
--- NOTE | 2018-05-19 21:06 | ED PDOC ---
HPI: Psych/Substance Abuse Time Seen by Provider: 05/19/18 21:03 Chief Complaint (Provider): substance abuse History Per: Patient, EMS Additional Complaint(s): 42 y/o non-domiciled female presents to emergency room after being found asleep in the street. Patient admits to alcohol and heroin use today. Patient is well- known to emergency department for frequent visits. PMD: none Past Medical History Reviewed: Historical Data, Nursing Documentation, Vital Signs - Medical History PMH: Anxiety, Asthma, Back Problems (herniated disc), Bipolar Disorder, COPD, Depression, HIV, Chronic Pain (Sciatica) - Family History Family History: States: No Known Family Hx - Living Arrangements Living Arrangements: Other (non-domiciled) - Social History Current smoker - smoking cessation education provided: Yes Alcohol: Social Drugs: Opiates (heroin) - Immunization History Hx Tetanus Toxoid Vaccination: Yes (2 years ago as per patient) - Home Medications Home Medications: Ambulatory Orders Medication Instructions Recorded Amoxicillin 500 mg PO Q12 #14 tablet 05/10/18 Naproxen [Naprosyn] 500 mg PO Q12 PRN #20 tablet 05/10/18 Carbamide Peroxide [Debrox Ear 5 drop BID #1 bottle 05/18/18 Drops] - Allergies Allergies/Adverse Reactions: Allergies Allergy/AdvReac Type Severity Reaction Status Date / Time tramadol Allergy Intermediate RASH Verified 05/18/18 01:14 Review of Systems ROS Statement: Except As Marked, All Systems Reviewed And Found Negative Psych: Positive for: Other (etoh and heroin abuse) Physical Exam - Reviewed Nursing Documentation Reviewed: Yes Vital Signs Reviewed: Yes - Physical Exam Appears: Positive for: Well Skin: Positive for: Normal Color. Negative for: Rash Eye Exam: Positive for: Normal appearance Cardiovascular/Chest: Positive for: Regular Rate, Rhythm Respiratory: Positive for: Normal Breath Sounds Neurologic/Psych: Positive for: Alert, Oriented, Gait (steady). Negative for: Motor/Sensory Deficits, Aphasia, Facial Droop - ECG O2 Sat by Pulse Oximetry: 98 Pulse Ox Interpretation: Normal Medical Decision Making Medical Decision Makin:10 pm 42 y/o female with history of substance abuse Fingerstick - 81 Patient is alert and awake, has steady gait. She is stable for discharge. Disposition - Clinical Impression Clinical Impression: Substance abuse - Patient ED Disposition Is Patient to be Admitted: No - Disposition Referrals: [facility] [Outside] Disposition: Routine/Home Disposition Time: 21:17 Condition: STABLE Instructions: Drug Abuse and Drug Addiction (DC), Drug Abuse Treatment
[2018-05-19 21:21] VITALS: O2SAT 98
[2018-05-19 21:23] VITALS: BP 102/70; PULSE 98; RESP 18; TEMP 97.8
== END 2018-05-19 21:20 | disposition home or self-care (01) ==
LOC: H.ER 21:00
DX: F11.10 Opioid abuse, uncomplicated (principal); F10.10 Alcohol abuse, uncomplicated; Y90.9 Presence of alcohol in blood, level not specified; F17.200 Nicotine dependence, unspecified, uncomplicated; Z86.59 Personal history of other mental and behavioral disorders; G89.29 Other chronic pain; J44.9 Chronic obstructive pulmonary disease, unspecified

== ENCOUNTER 2018-05-24 00:05 | Emergency (ER) | payer MEDICAID ==
[2018-05-24 00:05] VITALS: BMI 22.4
[2018-05-24 00:28] VITALS: RESP 18
--- NOTE | 2018-05-24 02:03 | ED PDOC ---
HPI: General Adult Time Seen by Provider: 05/24/18 00:19 Chief Complaint (Nursing): ENT Problem History Per: Patient History/Exam Limitations: intoxication Additional Complaint(s): Patient well known to ED for frequent visits, ETOH abuse presenting with L ear pain. States she has decreased hearing from the L ear. No fevers. Past Medical History Reviewed: Historical Data, Nursing Documentation, Vital Signs Vital Signs: Last Vital Signs Temp 98.2 F 05/24/18 00:15 Pulse 76 05/24/18 00:15 Resp 18 05/24/18 00:15 BP 130/86 05/24/18 00:15 Pulse Ox 96 05/24/18 00:15 - Medical History PMH: Anxiety, Asthma, Back Problems (herniated disc), Bipolar Disorder, COPD, Depression, HIV, Chronic Pain (Sciatica) Denies: Diabetes, Hepatitis, HTN, Chronic Kidney Disease, Seizures, Sexually Transmitted Disease - Family History Family History: States: Unknown Family Hx - Immunization History Hx Tetanus Toxoid Vaccination: Yes (2 years ago as per patient) Hx Influenza Vaccination: Yes (05/2015) Hx Pneumococcal Vaccination: No - Home Medications Home Medications: Ambulatory Orders Medication Instructions Recorded Amoxicillin 500 mg PO Q12 #14 tablet 05/10/18 Naproxen [Naprosyn] 500 mg PO Q12 PRN #20 tablet 05/10/18 Carbamide Peroxide [Debrox Ear 5 drop BID #1 bottle 05/24/18 Drops] - Allergies Allergies/Adverse Reactions: Allergies Allergy/AdvReac Type Severity Reaction Status Date / Time tramadol Allergy Intermediate RASH Verified 05/24/18 00:24 Review of Systems ROS Statement: Except As Marked, All Systems Reviewed And Found Negative Constitutional: Negative for: Fever ENT: Positive for: Ear Pain. Negative for: Ear Discharge Physical Exam - Reviewed Nursing Documentation Reviewed: Yes Vital Signs Reviewed: Yes - Physical Exam Appears: Positive for: Non-toxic, No Acute Distress. Negative for: Well ( Disheveled, asleep) Head Exam: Positive for: ATRAUMATIC, NORMAL INSPECTION, NORMOCEPHALIC Skin: Positive for: Normal Color Eye Exam: Positive for: Normal appearance ENT: Positive for: TM Is/Are (L TM impacted with wax) Neck: Positive for: Normal, Painless ROM, Supple Cardiovascular/Chest: Positive for: Regular Rate, Rhythm Respiratory: Positive for: Normal Breath Sounds Neurologic/Psych: Positive for: Alert, learning strategist II-XII, Oriented (x3). Negative for : Motor/Sensory Deficits - ECG O2 Sat by Pulse Oximetry: 96 Pulse Ox Interpretation: Normal Medical Decision Making Medical Decision Making: Patient with wax impaction --Stable appearing --No acute intervention necessary in ED Disposition - Clinical Impression Clinical Impression: Impacted ear wax - Patient ED Disposition Is Patient to be Admitted: No - Disposition Referrals: [facility] [Outside] Disposition: Routine/Home Disposition Time: 02:03 Condition: STABLE Prescriptions: Carbamide Peroxide [Debrox Ear Drops] 5 drop BID #1 bottle Instructions: Ear Wax Impaction
[2018-05-24 04:06] VITALS: BP 136/74; PULSE 65; TEMP 97.9; O2SAT 99
== END 2018-05-24 03:56 | disposition home or self-care (01) ==
LOC: H.ER 00:05
DX: H61.22 Impacted cerumen, left ear (principal); Z86.59 Personal history of other mental and behavioral disorders; G89.29 Other chronic pain; J44.9 Chronic obstructive pulmonary disease, unspecified

== ENCOUNTER 2018-05-25 22:09 | Emergency (ER) | payer MEDICAID ==
[2018-05-25 22:10] VITALS: BMI 22.4
[2018-05-25 22:17] VITALS: BP 128/75; PULSE 91; RESP 16; TEMP 98.5; O2SAT 100
== END 2018-05-25 22:21 | disposition left against medical advice (07) ==
LOC: H.ER 22:09
DX: Z02.89 Encounter for other administrative examinations (principal)

== ENCOUNTER 2018-06-21 02:45 | Emergency (ER) | payer MEDICAID ==
[2018-06-21 02:45] VITALS: BMI 22.4
[2018-06-21 02:59] VITALS: RESP 16; TEMP 98.2
[2018-06-21] MEDS ORDERED: Albuterol-Ipratrop 3 mg / 0.5 (3 ml) UD INH STA (03:22)
[2018-06-21] MEDS ORDERED: Albuterol 0.083% Inhal Sol (2.5 mg/3 mL) UD INH STA (03:22)
--- NOTE | 2018-06-21 04:08 | ED PDOC ---
HPI: SOB/CHF/COPD Time Seen by Provider: 06/21/18 03:16 Chief Complaint (Nursing): Cough, Cold, Congestion Chief Complaint (Provider): Cough History Per: Patient History/Exam Limitations: no limitations Onset/Duration Of Symptoms: Days (worse x2 days) Current Symptoms Are (Timing): Still Present Additional Complaint(s): 42 year old homeless female with history of COPD who is well known to ED staff for frequent visits presents to the ED for an acute on-chronic cough, worse over the past two days. Patient admits to still smoking 1 pack of cigarettes daily despite her COPD, and denies taking any medications prior to arrival. Denies fever, chest pain, prolonged immobility, leg swelling, abdominal pain, N/V/D. PMD: none provided Past Medical History Reviewed: Historical Data, Nursing Documentation, Vital Signs Vital Signs: Last Vital Signs Temp 98.2 F 06/21/18 02:57 Pulse 86 06/21/18 02:57 Resp 16 06/21/18 02:57 BP 122/85 06/21/18 02:57 Pulse Ox 98 06/21/18 02:57 - Medical History PMH: Anxiety, Asthma, Back Problems (herniated disc), Bipolar Disorder, COPD, Depression, Chronic Pain (Sciatica) - Surgical History Surgical History: No Surg Hx - Family History Family History: States: Unknown Family Hx - Living Arrangements Living Arrangements: Other (homeless) - Social History Current smoker - smoking cessation education provided: Yes (1 pack per day) - Immunization History Hx Tetanus Toxoid Vaccination: Yes (2 years ago as per patient) Hx Influenza Vaccination: Yes (05/2015) Hx Pneumococcal Vaccination: No - Home Medications Home Medications: Ambulatory Orders Medication Instructions Recorded Amoxicillin 500 mg PO Q12 #14 tablet 05/10/18 Naproxen [Naprosyn] 500 mg PO Q12 PRN #20 tablet 05/10/18 Carbamide Peroxide [Debrox Ear 5 drop BID #1 bottle 05/24/18 Drops] Albuterol Sulfate [Ventolin Hfa] 1 puff IH Q4 PRN #1 unit 06/21/18 - Allergies Allergies/Adverse Reactions: Allergies Allergy/AdvReac Type Severity Reaction Status Date / Time tramadol Allergy Intermediate RASH Verified 05/25/18 22:13 Review of Systems ROS Statement: Except As Marked, All Systems Reviewed And Found Negative Respiratory: Positive for: Cough Physical Exam - Reviewed Nursing Documentation Reviewed: Yes Vital Signs Reviewed: Yes - Physical Exam Comments: GENERAL APPEARANCE: Patient is awake, alert, oriented x 3, in no acute distress. SKIN: Warm, dry; (-) cyanosis. ENMT: Mucous membranes moist. Airway patent: (-) stridor. Pharynx: (-) swelling, (-) erythema, (-) exudate. NECK: Supple, FROM CHEST AND RESPIRATORY: (-) rhonchi, (-) rales, (-) wheezes; (+) decreased breath sounds bilaterally (-) respiratory distress. Respirations nonlabored, s peaking full sentences. HEART AND CARDIOVASCULAR: (-) irregularity ABDOMEN AND GI: Soft; (-) tenderness. EXTREMITIES: (-) deformity; (-) edema. NEURO AND PSYCH: Mental status as above. Cranial nerves grossly intact; strength symmetric. Gait: steady. Speech: clear. - ECG O2 Sat by Pulse Oximetry: 98 (RA) Pulse Ox Interpretation: Normal Medical Decision Making Medical Decision Making: Initial Impression: cough, COPD, tobacco abuse Time: 321 Initial Plan: --Albuterol 2.5mg INH --Duoneb 3ml INH --Reevaluation 05 On re-evaluation, patient reports improvement of symptoms. On exam, patient remains AAOx3, in no acute distress. Lungs clear to auscultation, cardiac RRR, repeat neuro exam shows no focal findings. VSS, stable for discharge. Lab/ Diagnostic results d/w the patient in great detail. Diagnosis of chronic cough, COPD, tobacco abuse d/w the patient. Based on history, exam and diagnostic results, plan will be for outpatient follow up. Patient instructed to follow-up with pmd / referral provided / the clinic in 1- 2 days without fail. Advised to take medication as prescribed. Return to the emergency room at any time for any new or worsening symptoms. Patient states she fully agrees with and understands discharge instructions. States that she agrees with the plan and disposition. Verbalized and repeated discharge instructions and plan. I have given the patient opportunity to ask any additional questions. Scribe Attestation: Documented by Mariam Sabillon, acting as a scribe for Jacklyn Dejesus PA-C. Provider Scribe Attestation: All medical record entries made by the Scribe were at my direction and personally dictated by me. I have reviewed the chart and agree that the record accurately reflects my personal performance of the history, physical exam, medic al decision making, and the department course for this patient. I have also personally directed, reviewed, and agree with the discharge instructions and disposition. Disposition - Clinical Impression Clinical Impression: Chronic cough, COPD (chronic obstructive pulmonary disease), Tobacco abuse - Patient ED Disposition Is Patient to be Admitted: No Counseled Patient/Family Regarding: Studies Performed, Diagnosis, Need For Followup, Rx Given, Smoking Cessation - Disposition Referrals: [facility] [Outside] Disposition: Routine/Home Disposition Time: 05:20 Condition: STABLE Additional Instructions: The emergency medical care you received today was directed towards the acute presenting symptoms. If you were prescribed any medication, please fill it and give as directed. It may take several days for your symptoms to resolve. Return to the Emergency Department at any time if symptoms worsen, do not improve, or if any other problems arise. Please contact your doctor in 2 days for re-evaluation and follow up / or call one of the physicians/clinics you have been referred to that are listed on the Patient Visit Information form that is included in your discharge packet. Bring any paperwork you were given at discharge with you along with any medications to your follow up visit. Our treatment cannot replace ongoing medical care by a primary care provider (PCP) outside of the emergency department. Prescriptions: Albuterol Sulfate [Ventolin Hfa] 1 puff IH Q4 PRN #1 unit PRN Reason: dyspnea Instructions: Chronic Obstructive Pulmonary Disease (COPD), Including Emphysema, Cough in Adults, Smoking: Not Just Harmful to Your Lungs and Heart, Exacerbation of COPD (DC) Forms: [employer] (Egyptian) Print Language: PALESTINIAN - POA Present On Arrival: None
[2018-06-21] MEDS ORDERED: Albuterol-Ipratrop 3 mg / 0.5 (3 ml) UD ONE (04:35)
[2018-06-21 06:01] VITALS: BP 109/66; PULSE 76
[2018-06-24 01:11] VITALS: O2SAT 98
== END 2018-06-21 06:16 | disposition home or self-care (01) ==
LOC: H.ER 02:45
DX: J44.9 Chronic obstructive pulmonary disease, unspecified (principal); R05 Cough; F17.210 Nicotine dependence, cigarettes, uncomplicated; Z59.0 Homelessness

== ENCOUNTER 2018-07-12 02:22 | Emergency (ER) | payer MEDICAID ==
[2018-07-12 02:22] VITALS: BMI 22.4
[2018-07-12 02:29] VITALS: BP 116/73; PULSE 97; RESP 16; TEMP 98.8; O2SAT 96
[2018-07-12] MEDS ORDERED: Albuterol 0.083% Inhal Sol (2.5 mg/3 mL) UD INH STA (02:40)
[2018-07-12] MEDS ORDERED: Albuterol-Ipratrop 3 mg / 0.5 (3 ml) UD INH STA (02:40)
--- NOTE | 2018-07-12 02:50 | ED PDOC ---
HPI: SOB/CHF/COPD Time Seen by Provider: 07/12/18 02:39 Chief Complaint (Nursing): Cough, Cold, Congestion Chief Complaint (Provider): Cough History Per: Patient History/Exam Limitations: no limitations Onset/Duration Of Symptoms: Days Current Symptoms Are (Timing): Still Present Additional Complaint(s): 42 year old homeless female with history of COPD who is well known to ED staff for frequent visits presents to the ED for an acute on-chronic cough, worse over the past two days. Patient admits to still smoking 1 pack of cigarettes daily despite her COPD, and denies taking any medications prior to arrival. Denies fever, chest pain, prolonged immobility, leg swelling, abdominal pain, N/V/D. PMD: none provided Past Medical History Reviewed: Historical Data, Nursing Documentation, Vital Signs Vital Signs: Last Vital Signs Temp 98.8 F 07/12/18 02:26 Pulse 97 H 07/12/18 02:26 Resp 16 07/12/18 02:26 BP 116/73 07/12/18 02:26 Pulse Ox 96 07/12/18 02:26 - Medical History PMH: Anxiety, Asthma, Back Problems (herniated disc), Bipolar Disorder, COPD, Depression, HIV, Chronic Pain (Sciatica) - Family History Family History: States: Unknown Family Hx - Living Arrangements Living Arrangements: Other (homeless) - Social History Current smoker - smoking cessation education provided: Yes Alcohol: Other (daily) - Home Medications Home Medications: Ambulatory Orders Medication Instructions Recorded RX: Amoxicillin 500 mg PO Q12 #14 tablet 05/10/18 RX: Naproxen [Naprosyn] 500 mg PO Q12 PRN #20 tablet 05/10/18 Carbamide Peroxide [Debrox Ear 5 drop BID #1 bottle 05/24/18 Drops] Albuterol Sulfate [Ventolin Hfa] 1 puff IH Q4 PRN #1 unit 06/21/18 - Allergies Allergies/Adverse Reactions: Allergies Allergy/AdvReac Type Severity Reaction Status Date / Time tramadol Allergy Intermediate RASH Verified 07/12/18 02:25 Review of Systems ROS Statement: Except As Marked, All Systems Reviewed And Found Negative Constitutional: Negative for: Fever, Chills Cardiovascular: Negative for: Chest Pain Respiratory: Positive for: Cough Gastrointestinal: Negative for: Vomiting, Abdominal Pain Physical Exam - Reviewed Nursing Documentation Reviewed: Yes Vital Signs Reviewed: Yes - Physical Exam Comments: GENERAL APPEARANCE: Patient is awake, alert, oriented x 3, in no acute distress. SKIN: Warm, dry; (-) cyanosis. ENMT: Mucous membranes moist. Airway patent: (-) stridor. Pharynx: (-) swelling, (-) erythema, (-) exudate. NECK: Supple, FROM CHEST AND RESPIRATORY: (-) rhonchi, (-) rales, (-) wheezes; (+) decreased breath sounds bilaterally (-) respiratory distress. Respirations nonlabored, speaking full sentences. HEART AND CARDIOVASCULAR: (-) irregularity ABDOMEN AND GI: Soft; (-) tenderness. EXTREMITIES: (-) deformity; (-) edema (-) calf tenderness. NEURO AND PSYCH: Mental status as above. Cranial nerves grossly intact; strength symmetric. Gait: steady. Speech: clear. - ECG O2 Sat by Pulse Oximetry: 96 (RA) Pulse Ox Interpretation: Normal Medical Decision Making Medical Decision Making: Impression: cough, COPD, tobacco abuse Plan: --Albuterol 2.5mg INH --Duoneb 3ml INH --Reevaluation 0505 On re-evaluation, patient reports improvement of symptoms. On exam, patient remains AAOx3, in no acute distress. Lungs clear to auscultation, cardiac RRR, repeat neuro exam shows no focal findings. VSS, stable for discharge. Lab/ Diagnostic results d/w the patient in great detail. Diagnosis of chronic cough, COPD, tobacco abuse d/w the patient. Based on history, exam and diagnostic results, plan will be for outpatient follow up. Patient instructed to follow-up with pmd / referral provided / the clinic in 1- 2 days without fail. Return to the emergency room at any time for any new or worsening symptoms. Patient states she fully agrees with and understands discharge instructions. States that she agrees with the plan and disposition. Verbalized and repeated discharge instructions and plan. I have given the patient opportunity to ask any additional questions. Scribe Attestation: Documented by Bhavya Lane, acting as a scribe for Jacklyn Dejesus PA-C. Provider Scribe Attestation: All medical record entries made by the Scribe were at my direction and personally dictated by me. I have reviewed the chart and agree that the record accurately reflects my personal performance of the history, physical exam, medical decision making, and the department course for this patient. I have also personally directed, reviewed, and agree with the discharge instructions and disposition. Disposition - Clinical Impression Clinical Impression: Cough in adult, Tobacco abuse, COPD (chronic obstructive pulmonary disease) - Patient ED Disposition Is Patient to be Admitted: No Counseled Patient/Family Regarding: Studies Performed, Diagnosis, Need For Followup - Disposition Referrals: [facility] [Outside] Disposition: Routine/Home Disposition Time: 05:05 Condition: STABLE Additional Instructions: The emergency medical care you received today was directed towards the acute presenting symptoms. If you were prescribed any medication, please fill it and give as directed. It may take several days for your symptoms to resolve. Return to the Emergency Department at any time if symptoms worsen, do not improve, or if any other problems arise. Please contact your doctor in 2 days for re-evaluation and follow up / or call one of the physicians/clinics you have been referred to that are listed on the Patient Visit Information form that is included in your discharge packet. Bring any paperwork you were given at discharge with you along with any medications to your follow up visit. Our treatment cannot replace ongoing medical care by a primary care provider (PCP) outside of the emergency department. Instructions: Chronic Obstructive Pulmonary Disease (COPD), Including Emphysema, Cough in Adults, Smoking: Not Just Harmful to Your Lungs and Heart, Exacerbation of COPD Forms: [email or web address] (Kazakh) Print Language: NICARAGUAN - POA Present On Arrival: None
== END 2018-07-12 06:13 | disposition home or self-care (01) ==
LOC: H.ER 02:22
DX: R05 Cough (principal); F17.210 Nicotine dependence, cigarettes, uncomplicated; J44.9 Chronic obstructive pulmonary disease, unspecified; Z59.0 Homelessness; G89.29 Other chronic pain; Z86.59 Personal history of other mental and behavioral disorders

== ENCOUNTER 2018-07-14 01:55 | Emergency (ER) | payer MEDICAID ==
[2018-07-14 02:07] VITALS: BMI 21.6
[2018-07-14] MEDS ORDERED: Albuterol 0.083% Inhal Sol (2.5 mg/3 mL) UD INH ONE (02:41)
[2018-07-14 02:58] VITALS: RESP 17; O2SAT 98
--- NOTE | 2018-07-14 06:31 | ED PDOC ---
HPI: SOB/CHF/COPD Time Seen by Provider: 07/14/18 02:00 Chief Complaint (Nursing): Shortness Of Breath Chief Complaint (Provider): Cough and Shortness of Breath History Per: Patient History/Exam Limitations: no limitations Onset/Duration Of Symptoms: Days Current Symptoms Are (Timing): Still Present Additional Complaint(s): 42 year old female with frequent ER visits, a history of COPD presents to the ER for an evaluation of cough. Also reports of shortness of breath which is chronic. She is well known to the ED and smokes a pack of cigarettes daily. Denies fever, chest pain, abdominal pain, N/V/D. PMD: No Family Provider Past Medical History Reviewed: Historical Data, Nursing Documentation, Vital Signs Vital Signs: Last Vital Signs Temp 97.7 F 07/14/18 02:06 Pulse 68 07/14/18 02:57 Resp 17 07/14/18 02:57 BP 106/57 L 07/14/18 02:57 Pulse Ox 98 07/14/18 02:57 - Medical History PMH: Anxiety, Asthma, Back Problems (herniated disc), Bipolar Disorder, COPD, Depression, HIV, Chronic Pain (Sciatica) Denies: Diabetes, Hepatitis, HTN, Chronic Kidney Disease, Seizures, Sexually Transmitted Disease - Surgical History Surgical History: No Surg Hx - Family History Family History: States: Unknown Family Hx - Social History Current smoker - smoking cessation education provided: Yes (Heavy Smoker > 10 Cigarettes Daily) Alcohol: Occasional Drugs: Other (heroin) - Immunization History Hx Tetanus Toxoid Vaccination: Yes (2 years ago as per patient) Hx Influenza Vaccination: Yes (05/2015) Hx Pneumococcal Vaccination: No - Home Medications Home Medications: Ambulatory Orders Medication Instructions Recorded Albuterol Sulfate [Ventolin Hfa] 1 puff IH Q4 PRN #1 unit 06/21/18 - Allergies Allergies/Adverse Reactions: Allergies Allergy/AdvReac Type Severity Reaction Status Date / Time tramadol Allergy Intermediate RASH Verified 07/12/18 02:25 Review of Systems ROS Statement: Except As Marked, All Systems Reviewed And Found Negative Constitutional: Negative for: Fever Cardiovascular: Negative for: Chest Pain Respiratory: Positive for: Cough, Shortness of Breath Gastrointestinal: Negative for: Nausea, Vomiting, Abdominal Pain, Diarrhea Physical Exam - Reviewed Nursing Documentation Reviewed: Yes Vital Signs Reviewed: Yes - Physical Exam Appears: Positive for: Non-toxic, No Acute Distress Head Exam: Positive for: ATRAUMATIC, NORMAL INSPECTION, NORMOCEPHALIC Skin: Positive for: Normal Color, Warm, Dry. Negative for: Rash Eye Exam: Positive for: EOMI, Normal appearance, PERRL ENT: Positive for: Normal ENT Inspection Neck: Positive for: Normal, Painless ROM, Supple. Negative for: Decreased ROM Cardiovascular/Chest: Positive for: Regular Rate, Rhythm. Negative for: Murmur Respiratory: Positive for: Rhonchi (mild), Other (good air entry bilaterally). Negative for: Decreased Breath Sounds, Wheezing, Respiratory Distress Gastrointestinal/Abdominal: Positive for: Normal Exam, Soft. Negative for: Tenderness, Guarding, Rebound Back: Positive for: Normal Inspection Extremity: Positive for: Normal ROM. Negative for: Tenderness, Pedal Edema, Deformity Neurologic/Psych: Positive for: Alert, Oriented (x3). Negative for: Motor/Sensory Deficits - ECG O2 Sat by Pulse Oximetry: 98 (RA) Pulse Ox Interpretation: Normal Medical Decision Making Medical Decision Making: Time: 024 Initial Plan: copd exacerbation Albuterol 2.5mg Peak Flow Pre/Post TX Reevaluation 3 am-4 am pt sleeping throughout ER stay. pt denies any complaint or pain throughout ER stay. pt stable for dc home. Scribe Attestation: Documented by Catalina Ceja, acting as a scribe for Wilma Covarrubias MD Provider Scribe Attestation: All medical record entries made by the Scribe were at my direction and personally dictated by me. I have reviewed the chart and agree that the record accurately reflects my personal performance of the history, physical exam, medical decision making, and the department course for this patient. I have also personally directed, reviewed, and agree with the discharge instructions and disposition. Disposition - Clinical Impression Clinical Impression: COPD (chronic obstructive pulmonary disease) - Patient ED Disposition Is Patient to be Admitted: No Counseled Patient/Family Regarding: Studies Performed, Diagnosis, Need For Followup - Disposition Disposition: Routine/Home Disposition Time: 05:30 Condition: IMPROVED Additional Instructions: follow up with your doctor in 1-2 days return to the ED with any worsening or concerning symptoms Instructions: Exacerbation of COPD (DC) Forms: [email or web address] (Pakistani)
[2018-07-14 06:41] VITALS: BP 111/70; PULSE 71; TEMP 98.3
== END 2018-07-14 06:21 | disposition home or self-care (01) ==
LOC: H.ER 01:55
DX: J44.9 Chronic obstructive pulmonary disease, unspecified (principal); F17.210 Nicotine dependence, cigarettes, uncomplicated; G89.29 Other chronic pain; Z86.59 Personal history of other mental and behavioral disorders

== ENCOUNTER 2018-07-20 01:53 | Emergency (ER) | payer MEDICAID ==
[2018-07-20 01:53] VITALS: BMI 21.6
[2018-07-20 02:06] VITALS: RESP 18
[2018-07-20] MEDS ORDERED: Albuterol-Ipratrop 3 mg / 0.5 (3 ml) UD INH STA (02:08)
--- NOTE | 2018-07-20 02:20 | ED PDOC ---
HPI: SOB/CHF/COPD Time Seen by Provider: 07/20/18 01:59 Chief Complaint (Nursing): Respiratory Distress Chief Complaint (Provider): Respiratory Distress Additional Complaint(s): 42 year old female with frequent ER visits, a history of COPD presents to the ER for an evaluation of cough. Also reports of shortness of breath which is chronic. She is well known to the ED and smokes a pack of cigarettes daily. Denies fever, chest pain, abdominal pain, nausea, vomiting and diarrhea. PMD: none provided Past Medical History Reviewed: Historical Data, Nursing Documentation, Vital Signs Vital Signs: Last Vital Signs Temp 97.7 F 07/20/18 02:00 Pulse 79 07/20/18 02:00 Resp 18 07/20/18 02:00 BP 117/75 07/20/18 02:00 Pulse Ox 97 07/20/18 02:00 - Medical History PMH: Anxiety, Asthma, Back Problems (herniated disc), Bipolar Disorder, COPD, Depression, HIV, Chronic Pain (Sciatica) Denies: Diabetes, Hepatitis, HTN, Chronic Kidney Disease, Seizures, Sexually Transmitted Disease - Surgical History Surgical History: No Surg Hx - Family History Family History: States: Unknown Family Hx - Immunization History Hx Tetanus Toxoid Vaccination: Yes (2 years ago as per patient) Hx Influenza Vaccination: Yes (05/2015) Hx Pneumococcal Vaccination: No - Home Medications Home Medications: Ambulatory Orders Medication Instructions Recorded Albuterol Sulfate [Ventolin Hfa] 1 puff IH Q4 PRN #1 unit 06/21/18 Albuterol Sulfate [Proair Hfa] 0.09 mg IH Q6 PRN #1 inh 07/20/18 predniSONE [predniSONE Tab] 60 mg PO QAM #12 tab 07/20/18 - Allergies Allergies/Adverse Reactions: Allergies Allergy/AdvReac Type Severity Reaction Status Date / Time tramadol Allergy Intermediate RASH Verified 07/20/18 02:00 Review of Systems ROS Statement: Except As Marked, All Systems Reviewed And Found Negative Constitutional: Negative for: Fever Respiratory: Positive for: Shortness of Breath, Wheezing Gastrointestinal: Negative for: Nausea, Vomiting, Abdominal Pain, Diarrhea Physical Exam - Reviewed Nursing Documentation Reviewed: Yes Vital Signs Reviewed: Yes - Physical Exam Appears: Positive for: Non-toxic, No Acute Distress Head Exam: Positive for: ATRAUMATIC, NORMAL INSPECTION, NORMOCEPHALIC Skin: Positive for: Normal Color, Warm, Dry Eye Exam: Positive for: EOMI, Normal appearance, PERRL Neck: Positive for: Normal, Painless ROM, Supple Cardiovascular/Chest: Positive for: Regular Rate, Rhythm. Negative for: Murmur Respiratory: Positive for: Normal Breath Sounds, Wheezing. Negative for: Respiratory Distress Gastrointestinal/Abdominal: Positive for: Normal Exam, Soft. Negative for: Tenderness Extremity: Positive for: Normal ROM. Negative for: Deformity Neurologic/Psych: Positive for: Alert, Oriented. Negative for: Motor/Sensory Deficits - ECG O2 Sat by Pulse Oximetry: 97 (RA) Pulse Ox Interpretation: Normal Medical Decision Making Medical Decision Makin Impression: COPD exacerbation Initial Plan: --Duoneb 9 ml INH --Prednisone 60 mg PO --Peak flow pre/post 03:35 --Patient reports improving in symptoms. Diagnosis is COPD exacerbation. Return precautions provided. Scribe Attestation: Documented by Tia Samuel, acting as a scribe for Samir Garcia MD Provider Scribe Attestation: All medical record entries made by the Scribe were at my direction and personally dictated by me. I have reviewed the chart and agree that the record accurately reflects my personal performance of the history, physical exam, medical decision making, and the department course for this patient. I have also personally directed, reviewed, and agree with the discharge instructions and disposition. Disposition - Clinical Impression Clinical Impression: COPD (chronic obstructive pulmonary disease) - Patient ED Disposition Is Patient to be Admitted: No - Disposition Disposition: Routine/Home Disposition Time: 03:35 Condition: STABLE Prescriptions: Albuterol Sulfate [Proair Hfa] 0.09 mg IH Q6 PRN #1 inh PRN Reason: Shortness Of Breath predniSONE [predniSONE Tab] 60 mg PO QAM #12 tab Instructions: Chronic Obstructive Pulmonary Disease (COPD), Including Emphysema Forms: [employer] (Bhutanese)
[2018-07-20] MEDS ORDERED: Albuterol-Ipratrop 3 mg / 0.5 (3 ml) UD ONE (02:29)
[2018-07-20 06:29] VITALS: BP 106/51; PULSE 70; TEMP 98; O2SAT 99
== END 2018-07-20 06:30 | disposition home or self-care (01) ==
LOC: H.ER 01:53
DX: J44.1 Chronic obstructive pulmonary disease with (acute) exacerbation (principal); G89.29 Other chronic pain; Z79.899 Other long term (current) drug therapy; F31.9 Bipolar disorder, unspecified

== ENCOUNTER 2018-07-29 12:24 | Emergency (ER) | payer MEDICAID ==
[2018-07-29 12:24] VITALS: BMI 21.6
--- NOTE | 2018-07-29 13:10 | ED PDOC ---
HPI: General Adult Time Seen by Provider: 07/29/18 13:09 Chief Complaint (Nursing): Dizziness/Lightheaded Chief Complaint (Provider): dizzy History Per: Patient (42 y/o female well known to ED here with complaint of dizziness after waking up from nap in [employer]. Denies any other complaints.) Past Medical History Reviewed: Historical Data, Nursing Documentation, Vital Signs Vital Signs: Last Vital Signs Temp 97.6 F 07/29/18 12:26 Pulse 67 07/29/18 12:26 Resp 18 07/29/18 12:26 BP 104/55 L 07/29/18 12:26 Pulse Ox 99 07/29/18 12:26 - Medical History PMH: Anxiety, Asthma, Back Problems (herniated disc), Bipolar Disorder, COPD, Depression, HIV, Chronic Pain (Sciatica) Denies: Diabetes, Hepatitis, HTN, Chronic Kidney Disease, Seizures, Sexually Transmitted Disease - Family History Family History: States: Unknown Family Hx - Immunization History Hx Tetanus Toxoid Vaccination: Yes (2 years ago as per patient) Hx Influenza Vaccination: Yes (05/2015) Hx Pneumococcal Vaccination: No - Home Medications Home Medications: Ambulatory Orders Medication Instructions Recorded Albuterol Sulfate [Ventolin Hfa] 1 puff IH Q4 PRN #1 unit 06/21/18 Albuterol Sulfate [Proair Hfa] 0.09 mg IH Q6 PRN #1 inh 07/20/18 predniSONE [predniSONE Tab] 60 mg PO QAM #12 tab 07/20/18 - Allergies Allergies/Adverse Reactions: Allergies Allergy/AdvReac Type Severity Reaction Status Date / Time tramadol Allergy Intermediate RASH Verified 07/29/18 12:30 Review of Systems ROS Statement: Except As Marked, All Systems Reviewed And Found Negative Physical Exam - Reviewed Nursing Documentation Reviewed: Yes Vital Signs Reviewed: Yes - Physical Exam Appears: Positive for: Well, Non-toxic, No Acute Distress Head Exam: Positive for: ATRAUMATIC, NORMAL INSPECTION, NORMOCEPHALIC Skin: Positive for: Normal Color, Warm, DRY Eye Exam: Positive for: EOMI, Normal appearance, PERRL ENT: Positive for: Normal ENT Inspection Neck: Positive for: Normal, Painless ROM Cardiovascular/Chest: Positive for: Regular Rate, Rhythm Respiratory: Positive for: CNT, Normal Breath Sounds Gastrointestinal/Abdominal: Positive for: Normal Exam, Soft Back: Positive for: Normal Inspection Extremity: Positive for: Normal ROM Neurologic/Psych: Positive for: Alert, Oriented - Laboratory Results Result Diagrams: 07/29/18 13:25 07/29/18 13:25 - ECG ECG Rhythm: Positive for: Sinus Rhythm (no ectopy no acute changes) O2 Sat by Pulse Oximetry: 99 Disposition - Clinical Impression Clinical Impression: Dizziness of unknown cause - Patient ED Disposition Is Patient to be Admitted: No - Disposition Disposition: Routine/Home Disposition Time: 14:41 Condition: FAIR Instructions: Dizziness, Nonvertigo, (DC)
[2018-07-29] MEDS ORDERED: Sodium Chloride 0.9% 1,000 ML IV STA (13:15)
[2018-07-29 13:43] LABS: ALB/GLOB RATIO 1.4 (1.0-2.1); ALBUMIN 4.6 g/dL (3.5-5.0); ALT/SGPT 28 U/L (9-52); AST/SGOT 34 U/L (14-36); BLOOD UREA NITROGEN 16 mg/dl (7-17); CALCIUM 9.9 mg/dL (8.4-10.2); GFR NON-AFRICAN AMERICAN > 60
[2018-07-29 13:44] LABS: BASO # 0.1 K/uL (0.0-0.2); BASO % 0.6 % (0.0-2.0); EOS % 0.3 % (0.0-4.0); HEMOGLOBIN 14.8 g/dL (12.0-16.0); LYMPH # 1.8 K/uL (1.0-4.3); LYMPH % 16.8 % (20.0-40.0); MEAN CELL VOLUME 94.4 fl (81.0-99.0); MEAN CORPUSCULAR HGB CONC 32.9 g/dL (33.0-37.0); MEAN PLATELET VOLUME 8.6 fl (7.2-11.7); MONO # 0.4 K/uL (0.0-0.8); MONO % 4.1 % (0.0-10.0); NEUT # 8.5 K/uL (1.8-7.0); NEUT % 78.2 % (50.0-75.0); NRBC % 0.1 % (0.0-0.0); RBC 4.76 Mil/uL (3.80-5.20); RED CELL DISTRIBUTION WIDTH 12.8 % (11.5-14.5); WHITE BLOOD COUNT 10.9 K/uL (4.8-10.8)
[2018-07-29 13:47] VITALS: BP 101/60; RESP 16; TEMP 97.9
[2018-07-29 13:54] VITALS: PULSE 71
[2018-07-29 14:41] VITALS: O2SAT 99
--- NOTE | 2018-07-30 09:46 | CARD ---
APPROVED REPORT Date of service: 07/29/2018 EKG Measurement Heart [id number] <Conclusion> Normal sinus rhythm Normal ECG
== END 2018-07-29 15:45 | disposition home or self-care (01) ==
LOC: H.ER 12:24
DX: R42 Dizziness and giddiness (principal); Z86.59 Personal history of other mental and behavioral disorders; G89.29 Other chronic pain; J44.9 Chronic obstructive pulmonary disease, unspecified

== ENCOUNTER 2018-07-30 01:15 | Emergency (ER) | payer MEDICAID ==
[2018-07-30 01:15] VITALS: BMI 21.6
[2018-07-30 01:42] VITALS: O2SAT 99
[2018-07-30] MEDS ORDERED: Albuterol-Ipratrop 3 mg / 0.5 (3 ml) UD INH STA ×2 (02:50)
--- NOTE | 2018-07-30 03:13 | ED PDOC ---
HPI: CCC, URI, Sore Throat Time Seen by Provider: 07/30/18 01:25 Chief Complaint (Nursing): Cough, Cold, Congestion Chief Complaint (Provider): Cough History Per: Patient Onset/Duration Of Symptoms: Days Current Symptoms Are (Timing): Still Present Associated Symptoms: Cough Additional History Per: Patient Additional Complaint(s): 42yo female, comes to ER reporting she has been coughing for the past 2-3 days with associated wheezing. She states she has not taken any treatments to alleviate her symptoms. She denies any associated fevers, chest pain, or shortness of breath. Patient denies any alcohol use today as well. Past Medical History Reviewed: Historical Data, Nursing Documentation, Vital Signs Vital Signs: Last Vital Signs Temp 97.8 F 07/30/18 01:40 Pulse 79 07/30/18 01:40 Resp 16 07/30/18 01:40 BP 146/91 H 07/30/18 01:40 Pulse Ox 99 07/30/18 01:40 - Medical History PMH: Anxiety, Asthma, Back Problems (herniated disc), Bipolar Disorder, COPD, Depression, HIV, Chronic Pain (Sciatica) Denies: Diabetes, Hepatitis, HTN, Chronic Kidney Disease, Seizures, Sexually Transmitted Disease - Family History Family History: States: Unknown Family Hx - Immunization History Hx Tetanus Toxoid Vaccination: Yes (2 years ago as per patient) Hx Influenza Vaccination: Yes (05/2015) Hx Pneumococcal Vaccination: No - Home Medications Home Medications: Ambulatory Orders Medication Instructions Recorded Albuterol Sulfate [Ventolin Hfa] 1 puff IH Q4 PRN #1 unit 06/21/18 Albuterol Sulfate [Proair Hfa] 0.09 mg IH Q6 PRN #1 inh 07/20/18 predniSONE [predniSONE Tab] 60 mg PO QAM #12 tab 07/20/18 Albuterol Sulfate [Ventolin Hfa] 1 puff IH Q4 PRN #1 ml 07/30/18 predniSONE [predniSONE Tab] 60 mg PO DAILY #9 tab 07/30/18 - Allergies Allergies/Adverse Reactions: Allergies Allergy/AdvReac Type Severity Reaction Status Date / Time tramadol Allergy Intermediate RASH Verified 07/29/18 12:30 Review of Systems ROS Statement: Except As Marked, All Systems Reviewed And Found Negative Constitutional: Negative for: Fever, Chills Cardiovascular: Negative for: Chest Pain Respiratory: Positive for: Cough, Wheezing. Negative for: Shortness of Breath Physical Exam - Reviewed Nursing Documentation Reviewed: Yes Vital Signs Reviewed: Yes - Physical Exam Appears: Positive for: Non-toxic, No Acute Distress Head Exam: Positive for: ATRAUMATIC, NORMAL INSPECTION, NORMOCEPHALIC Skin: Positive for: Normal Color Eye Exam: Positive for: Normal appearance Neck: Positive for: Supple Cardiovascular/Chest: Positive for: Regular Rate, Rhythm Respiratory: Positive for: Wheezing (minimal wheezing noted bilaterally) Back: Positive for: Normal Inspection Extremity: Positive for: Normal ROM. Negative for: Pedal Edema Neurologic/Psych: Positive for: Alert, Oriented - ECG O2 Sat by Pulse Oximetry: 99 (RA) Pulse Ox Interpretation: Normal Medical Decision Making Medical Decision Making: Assessment: 42yo female with minor COPD exacerbation Plan: -- Chest x-ray -- Duoneb 3ml INH x 2 -- Prednisone 60mg PO Scribe Attestation: Documented by Bhavya Lane, acting as a scribe for Tulio Guerra MD. Provider Scribe Attestation: All medical record entries made by the Scribe were at my direction and personally dictated by me. I have reviewed the chart and agree that the record accurately reflects my personal performance of the history, physical exam, medical decision making, and the department course for this patient. I have also personally directed, reviewed, and agree with the discharge instructions and disposition. Disposition - Clinical Impression Clinical Impression: COPD (chronic obstructive pulmonary disease) - Disposition Referrals: Mert Lombardi MD [Family Provider] - Disposition: Routine/Home Disposition Time: 06:00 Condition: STABLE Additional Instructions: FOR MENTAL HEALTH AND SOCIAL SERVIES FOLLOW UP WITH [facility] ([facility] FOR THE HOMELESS) [address] [place] [address] FOR CARE HOME PLACEMENT [address] [phone] Prescriptions: Albuterol Sulfate [Ventolin Hfa] 1 puff IH Q4 PRN #1 ml PRN Reason: Wheezing predniSONE [predniSONE Tab] 60 mg PO DAILY #9 tab Instructions: Exacerbation of COPD Forms: [employer] (Belgian)
[2018-07-30] MEDS ORDERED: Albuterol-Ipratrop 3 mg / 0.5 (3 ml) UD ONE (03:57)
[2018-07-30 06:56] VITALS: RESP 18
[2018-07-30 07:31] VITALS: BP 120/69; PULSE 69; TEMP 98.6
== END 2018-07-30 08:00 | disposition home or self-care (01) ==
LOC: H.ER 01:15
DX: J44.9 Chronic obstructive pulmonary disease, unspecified (principal)

== ENCOUNTER 2018-08-01 20:54 | Emergency (ER) | payer MEDICAID ==
[2018-08-01 20:54] VITALS: BMI 21.6
[2018-08-01 21:04] VITALS: BP 110/65; PULSE 74; RESP 18; TEMP 97.4; O2SAT 98
== END 2018-08-01 21:15 | disposition left against medical advice (07) ==
LOC: H.ER 20:54
DX: Z02.89 Encounter for other administrative examinations (principal)

== ENCOUNTER 2018-08-07 22:28 | Emergency (ER) | payer MEDICAID ==
[2018-08-07 22:28] VITALS: BMI 21.6
[2018-08-07 22:40] VITALS: BP 136/86; PULSE 98; RESP 16; O2SAT 96
--- NOTE | 2018-08-07 22:51 | ED PDOC ---
HPI: Psych/Substance Abuse Time Seen by Provider: 08/07/18 22:40 Chief Complaint (Nursing): Alcohol Ingestion Chief Complaint (Provider): No complaints History Per: Patient History/Exam Limitations: no limitations Additional Complaint(s): 42 yo female brought by EMS for evaluation of alcohol abuse. Pt walks into ER with steady gait. PT states she is upset she was woken up on train although she had ticket. Pt denies complaints. Pt reports drinknig earlier in the day but is feeling fine now. Pt well known to information writer. Past Medical History Reviewed: Historical Data, Nursing Documentation, Vital Signs Vital Signs: Last Vital Signs Temp 98.0 F 08/07/18 22:31 Pulse 98 H 08/07/18 22:31 Resp 16 08/07/18 22:31 BP 136/86 08/07/18 22:31 Pulse Ox 96 08/07/18 22:31 - Medical History PMH: Anxiety, Asthma, Back Problems (herniated disc), Bipolar Disorder, COPD, D epression, Fractures (Ankle fx), Chronic Pain (Sciatica) Denies: Diabetes, Hepatitis, HIV, HTN, Chronic Kidney Disease, Seizures, Sexually Transmitted Disease - Family History Family History: States: Unknown Family Hx - Immunization History Hx Tetanus Toxoid Vaccination: Yes (2 years ago as per patient) Hx Influenza Vaccination: Yes (05/2015) Hx Pneumococcal Vaccination: No - Home Medications Home Medications: Ambulatory Orders Medication Instructions Recorded Albuterol Sulfate [Ventolin Hfa] 1 puff IH Q4 PRN #1 unit 06/21/18 Albuterol Sulfate [Proair Hfa] 0.09 mg IH Q6 PRN #1 inh 07/20/18 predniSONE [predniSONE Tab] 60 mg PO QAM #12 tab 07/20/18 Albuterol Sulfate [Ventolin Hfa] 1 puff IH Q4 PRN #1 ml 07/30/18 predniSONE [predniSONE Tab] 60 mg PO DAILY #9 tab 07/30/18 - Allergies Allergies/Adverse Reactions: Allergies Allergy/AdvReac Type Severity Reaction Status Date / Time tramadol Allergy Intermediate RASH Verified 08/07/18 22:31 Review of Systems ROS Statement: Except As Marked, All Systems Reviewed And Found Negative Constitutional: Negative for: Fever, Chills Cardiovascular: Negative for: Chest Pain, Palpitations Respiratory: Negative for: Cough, Shortness of Breath Gastrointestinal: Negative for: Nausea, Vomiting, Abdominal Pain Psych: Negative for: Psychosis, Suicidal ideation, Withdrawal Physical Exam - Reviewed Nursing Documentation Reviewed: Yes Vital Signs Reviewed: Yes - Physical Exam Appears: Positive for: Well, Non-toxic, No Acute Distress Head Exam: Positive for: ATRAUMATIC, NORMAL INSPECTION, NORMOCEPHALIC Skin: Positive for: Normal Color, Warm, DRY Eye Exam: Positive for: Normal appearance ENT: Positive for: Normal ENT Inspection Neck: Positive for: Normal Cardiovascular/Chest: Positive for: Regular Rate, Rhythm. Negative for: Bradycardia, Tachycardia Respiratory: Positive for: Normal Breath Sounds. Negative for: Accessory Muscle Use, Respiratory Distress Back: Positive for: Normal Inspection Extremity: Positive for: Normal ROM Neurologic/Psych: Positive for: Alert - ECG O2 Sat by Pulse Oximetry: 96 Pulse Ox Interpretation: Normal Medical Decision Making Medical Decision Making: Pt discharged, calm and cooperative in ER. Pt does not want to wait for paper. Alert and oriented with steady gait. Denies SI/HI. Pt given juice. Disposition - Clinical Impression Clinical Impression: Encounter for medical assessment - Patient ED Disposition Is Patient to be Admitted: No - Disposition Disposition: Routine/Home Disposition Time: 22:55 Condition: GOOD
[2018-08-07 23:03] VITALS: TEMP 98
== END 2018-08-07 22:45 | disposition home or self-care (01) ==
LOC: H.ER 22:28
DX: Z00.00 Encounter for general adult medical examination without abnormal findings (principal); Z86.59 Personal history of other mental and behavioral disorders

== ENCOUNTER 2018-08-23 01:25 | Emergency (ER) | payer MEDICAID ==
[2018-08-23 01:26] VITALS: BMI 21.6
[2018-08-23] MEDS ORDERED: Albuterol-Ipratrop 3 mg / 0.5 (3 ml) UD INH STA (03:19)
[2018-08-23] MEDS ORDERED: Albuterol-Ipratrop 3 mg / 0.5 (3 ml) UD ONE (04:00)
--- NOTE | 2018-08-23 04:01 | ED PDOC ---
HPI: CCC, URI, Sore Throat Time Seen by Provider: 08/23/18 02:39 Chief Complaint (Nursing): Cough, Cold, Congestion Chief Complaint (Provider): Wheezing and cough History Per: Patient History/Exam Limitations: no limitations Onset/Duration Of Symptoms: Days (x2) Current Symptoms Are (Timing): Still Present Additional Complaint(s): 42 year old female presents to the ED complaining of wheezing and cough for 2 days, not 1 month contrary to triage note. Patient denies chest pain, hemoptysis, or fever. Patient is well known to the provider. She states she has not used her albuterol inhaler due to not having enough money to buy one. PMD: none Past Medical History Reviewed: Historical Data, Nursing Documentation, Vital Signs Vital Signs: Last Vital Signs Temp 97.9 F 08/23/18 01:31 Pulse 65 08/23/18 01:31 Resp 16 08/23/18 01:31 BP 141/78 08/23/18 01:31 Pulse Ox 98 08/23/18 01:31 - Medical History PMH: Anxiety, Asthma, Back Problems (herniated disc), Bipolar Disorder, COPD, Depression, Fractures (Ankle fx), Chronic Pain (Sciatica) Denies: Diabetes, Hepatitis, HIV, HTN, Chronic Kidney Disease, Seizures, Sexually Transmitted Disease - Surgical History Surgical History: No Surg Hx - Family History Family History: States: Unknown Family Hx - Immunization History Hx Tetanus Toxoid Vaccination: Yes (2 years ago as per patient) Hx Influenza Vaccination: Yes (05/2015) Hx Pneumococcal Vaccination: No - Home Medications Home Medications: Ambulatory Orders Medication Instructions Recorded Albuterol Sulfate [Ventolin Hfa] 1 puff IH Q4 PRN #1 unit 06/21/18 Albuterol Sulfate [Proair Hfa] 0.09 mg IH Q6 PRN #1 inh 07/20/18 predniSONE [predniSONE Tab] 60 mg PO QAM #12 tab 07/20/18 Albuterol Sulfate [Ventolin Hfa] 1 puff IH Q4 PRN #1 ml 07/30/18 predniSONE [predniSONE Tab] 60 mg PO DAILY #9 tab 07/30/18 Albuterol HFA [Ventolin HFA 90 2 puff IH Q4 PRN #120 puff 08/23/18 mcg/actuation (8 g)] - Allergies Allergies/Adverse Reactions: Allergies Allergy/AdvReac Type Severity Reaction Status Date / Time tramadol Allergy Intermediate RASH Verified 08/07/18 22:31 Review of Systems ROS Statement: Except As Marked, All Systems Reviewed And Found Negative Constitutional: Negative for: Fever Cardiovascular: Negative for: Chest Pain Respiratory: Positive for: Cough, Wheezing. Negative for: Hemoptysis Physical Exam - Reviewed Nursing Documentation Reviewed: Yes Vital Signs Reviewed: Yes - Physical Exam Appears: Positive for: Non-toxic, No Acute Distress Head Exam: Positive for: ATRAUMATIC, NORMOCEPHALIC Skin: Positive for: Normal Color, Warm, Dry Eye Exam: Positive for: Normal appearance Neck: Positive for: Normal, Painless ROM Cardiovascular/Chest: Positive for: Regular Rate, Rhythm Respiratory: Positive for: Wheezing (minimal expiratory wheezing bilaterally). Negative for: Respiratory Distress Neurologic/Psych: Positive for: Alert, Oriented (x3), Other (speaking full sentences) - ECG O2 Sat by Pulse Oximetry: 98 (RA) Pulse Ox Interpretation: Normal - Progress Re-evaluation Time: 04:20 (Wheezing resovled. ) Condition: Re-examined, Improved Medical Decision Making Medical Decision Making: Initial Plan: --Albuterol 3mL INH Scribe Attestation: Documented by Efra Rodrigues acting as a scribe for Kuldip THOMPSON Provider Scribe Attestation: All medical record entries made by the Scribe were at my direction and personally dictated by me. I have reviewed the chart and agree that the record accurately reflects my personal performance of the history, physical exam, medical decision making, and the department course for this patient. I have also personally directed, reviewed, and agree with the discharge instructions and disposition. Disposition - Clinical Impression Clinical Impression: COPD (chronic obstructive pulmonary disease) - Patient ED Disposition Is Patient to be Admitted: No - Disposition Referrals: [facility] [Outside] Disposition: Routine/Home Disposition Time: 04:25 Condition: IMPROVED Additional Instructions: MARCELL ROSALES, thank you for letting us take care of you today. Your provider was Tulio Guerra MD and you were treated for COUGH. The emergency medical care you received today was directed at your acute symptoms. If you were prescribed any medication, please fill it and take as directed. It may take several days for your symptoms to resolve. Return to the Emergency Department if your symptoms worsen, do not improve, or if you have any other problems. Please contact your doctor or call one of the physicians/clinics you have been referred to that are listed on the Patient Visit Information form that is included in your discharge packet. Bring any paperwork you were given at discharge with you along with any medications you are taking to your follow up visit. Our treatment cannot replace ongoing medical care by a primary care provider outside of the emergency department. Thank you for allowing the [facility] team to be part of your care today. If you had an X-Ray or CT scan: A Radiologist will review the ED reading if any change in treatment is needed we will contact you. If you had a blood, urine, or wound culture: It will take several days for the results, if any change in treatment is needed we will contact you. If you had an STI test: It will take 48 hours for the results. Please call after 1 week if you have not heard back. Prescriptions: Albuterol HFA [Ventolin HFA 90 mcg/actuation (8 g)] 2 puff IH Q4 PRN #120 puff PRN Reason: Wheezing Instructions: Exacerbation of COPD (DC) Forms: [employer] (Citizen Of [place])
[2018-08-23 07:01] VITALS: BP 130/70; PULSE 68; RESP 18; TEMP 98.3; O2SAT 99
== END 2018-08-23 07:01 | disposition home or self-care (01) ==
LOC: H.ER 01:25
DX: J44.9 Chronic obstructive pulmonary disease, unspecified (principal); Z86.59 Personal history of other mental and behavioral disorders; G89.29 Other chronic pain; Z79.899 Other long term (current) drug therapy

== ENCOUNTER 2019-01-20 18:02 | Emergency (ER) | payer MEDICAID ==
[2019-01-20 18:02] VITALS: BMI 25.0
[2019-01-20 18:04] VITALS: BP 123/81; PULSE 83; RESP 16; TEMP 98.7; O2SAT 99
--- NOTE | 2019-01-20 18:18 | ED PDOC ---
HPI: Psych/Substance Abuse Time Seen by Provider: 01/20/19 18:09 Chief Complaint (Nursing): Alcohol Ingestion Chief Complaint (Provider): Alcohol Ingestion History Per: Patient, EMS History/Exam Limitations: no limitations Additional Complaint(s): 43 y/o female brought in by EMS after being found drinking alcohol at the train station just prior to arrival. [place] Police informed EMS they had to bring the patient here for further evaluation. At this time, patient offers no complaints. Patient admits to drinking one pint of vodka earlier today and is a known alcoholic. Otherwise: (-) suicidal ideation, (-) homicidal ideation, (-) hallucinations. Patient is well known to ED staff and provider for alcohol abuse and frequent visits. PMD: no provider Past Medical History Reviewed: Historical Data, Nursing Documentation, Vital Signs Vital Signs: Last Vital Signs Temp 98.7 F 01/20/19 18:03 Pulse 83 01/20/19 18:03 Resp 16 01/20/19 18:03 BP 123/81 01/20/19 18:03 Pulse Ox 99 01/20/19 18:03 Primary Care Provider: FAMILY PROVIDER,NO - Medical History PMH: Anxiety, Asthma, Back Problems (herniated disc), Bipolar Disorder, COPD, Depression, Fractures (Ankle fx), Chronic Pain (Sciatica) - Family History Family History: States: Unknown Family Hx - Social History Current smoker - smoking cessation education provided: Yes Alcohol: > 2 Drinks/Day - Home Medications Home Medications: Ambulatory Orders Medication Instructions Recorded Unobtainable 10/13/18 - Allergies Allergies/Adverse Reactions: Allergies Allergy/AdvReac Type Severity Reaction Status Date / Time tramadol Allergy Intermediate RASH Verified 01/20/19 18:06 Review of Systems ROS Statement: Except As Marked, All Systems Reviewed And Found Negative Psych: Positive for: Other (alcohol ingestion) Physical Exam - Reviewed Nursing Documentation Reviewed: Yes Vital Signs Reviewed: Yes - Physical Exam Comments: GENERAL APPEARANCE: Patient is awake, alert, oriented x 3, in no acute distress. Resting comfortably. SKIN: Warm, dry; (-) cyanosis ENMT: Mucous membranes moist. Airway patent: (-) stridor. EYES: (-) conjunctival injection NECK: Supple, FROM HEART AND CARDIOVASCULAR: (-) irregularity CHEST AND RESPIRATORY: (-) rales, (-) rhonchi, (-) wheezes; breath sounds equal. Respirations even and nonlabored, speaking in full sentences. ABDOMEN: Soft, (-) distention, (-) tenderness, (-) guarding. NEURO AND PSYCH: Mental status as above. Pupils equal and reactive; EOMI; (-) facial asymmetry. Gait: steady. Speech: clear. (-) facial asymmetry - ECG O2 Sat by Pulse Oximetry: 99 (RA) Pulse Ox Interpretation: Normal Medical Decision Making Medical Decision Making: Time: 1802 Impression: Alcohol Ingestion Plan: -- No medical intervention required at this time. Patient is stable and appropriate for discharge home. Patient is in agreement with plan. Vitals stable. Based on history, exam and diagnostic results, plan will be for outpatient follow up with clinic. Patient instructed to follow-up with pmd / referral provided / the clinic in 1- 2 days without fail. Return to the emergency room at any time for any new or worsening symptoms. Patient states she fully agrees with and understands discharge instructions. States that she agrees with the plan and disposition. Verbalized and repeated discharge instructions and plan. I have given the patient opportunity to ask any additional questions. Scribe Attestation: Documented by Gume Downey, acting as a scribe Gabino Dejesus PA-C. Provider Scribe Attestation: All medical record entries made by the Scribe were at my direction and personally dictated by me. I have reviewed the chart and agree that the record accurately reflects my personal performance of the history, physical exam, medical decision making, and the department course for this patient. I have also personally directed, reviewed, and agree with the discharge instructions and disposition. Disposition - Clinical Impression Clinical Impression: Alcohol ingestion - Patient ED Disposition Is Patient to be Admitted: No Counseled Patient/Family Regarding: Studies Performed, Diagnosis, Need For Followup - Disposition Referrals: [facility] [Outside] [facility] [Outside] Disposition: Routine/Home Disposition Time: 18:15 Condition: STABLE Additional Instructions: The emergency medical care you received today was directed at your acute symptoms. If you were prescribed any medication, please fill it and take as directed. It may take several days for your symptoms to resolve. Return to the Emergency Department if your symptoms worsen, do not improve, or if you have any other problems. Please contact your doctor in 2 days for re-evaluation and follow up / or call one of the physicians/clinics you have been referred to that are listed on the Patient Visit Information form that is included in your discharge packet. Bring any paperwork you were given at discharge with you along with any medications you are taking to your follow up visit. Our treatment cannot replace ongoing medical care by a primary care provider (PCP) outside of the emergency department. Instructions: Alcohol Use - When Is Drinking a Problem?, Alcohol Abuse and Alcoholism (DC), Effects of Alcohol on Your Health Forms: [employer] (Swedish) Print Language: BERMUDIAN - POA Present On Arrival: None
== END 2019-01-20 19:21 | disposition home or self-care (01) ==
LOC: H.ER 18:02
DX: F10.129 Alcohol abuse with intoxication, unspecified (principal)